=== PATIENT | male | born 1955 | race Caucasian/White ===

== ENCOUNTER → 2016-09-07 | Outpatient (CLI) | payer OTHER, BC ==
[~2016-09-07] MED LIST: AMIO200T4 PO; ASPI-435 PO; ASPI81TA82 PO; ATOR-24 PO; ATV/1 PO; CARV12.52 PO; CHOL2000 PO; CMD/25 PO; COEN100C11 PO; CPR500 PO; DAPT500I IV; DOXY100C2 PO; DOXY1TAB6 PO; FINA5TAB PO; FURO-85 PO; KFL500HP PO; LEUP11.23 INJ; METF500T5 PO; MRLP17X PO; NITR0.4S UT; ONDA4TAB46 PO; ONDA4TAB7 SL; PYRI100T4 PO; REPA1TAB26 PO; ROPI0.25 PO; SACU1TAB PO; SENN-65 PO; SILV1PAD38 TOP; TAPE50TA PO; TICA1TAB PO; TRL150 PO; TYLOTC500 PO; WARF1TAB PO; WARF3TAB PO
[2016-09-07 13:42] LABS: ALT/SGPT 30 U/L (12-78)
[2016-09-07 13:51] LABS: RATIO 29.4 mcg/mg (0-30.0)
[2016-09-07 13:52] LABS: ESTIMATED AVERAGE GLUCOSE 137 mg/dl; HA1C FLAG Normal (Normal)
--- NOTE | 2016-09-11 10:12 | CODING QUERY MEDICAL NECESSITY ---
SUPPORTING DIAGNOSIS NEEDED A supporting diagnosis is required for the test/procedure performed on this patient in order for us to be reimbursed by the patient's insurance. Please provide a supporting diagnosis for the following test/procedure listed below next to the test name along with your signature. *If there is no additional diagnosis for this patient that would support the following test/procedure please document that below next to the test/procedure. Test(s)/Procedure(s) that require a supporting diagnosis: DOS 09/07 * PSA DIAGNOSIS: Provider Signature: Date: Thank you Stephanie Jama Health Information Management Once completed, please kindly fax back to [phone] For questions please call [phone]
== END | disposition home or self-care (01) ==
LOC: C.LABMFLN 08:50
PROVIDERS: ATTEND Urology
DX: R39.9 Unspecified symptoms and signs involving the genitourinary system (principal); I10 Essential (primary) hypertension; R73.01 Impaired fasting glucose; M86.9 Osteomyelitis, unspecified; R97.20 Elevated prostate specific antigen [PSA]

== ENCOUNTER → 2016-09-26 | Outpatient (CLI) | payer OTHER, BC ==
[~2016-09-26] MED LIST changes: -REPA1TAB26 PO; +REPA1TAB42 PO
[2016-09-26 14:46] LABS: BASO % 0.4 %; BASO ABS # 0.03 K/uL (0-0.2); COMPLETE YES; EOS % 1.1 %; IG% 0.3 %; LYMPH % 30.3 %; LYMPH ABS # 2.21 K/uL (1.2-3.4); MEAN CELL VOLUME 85.5 fL (80-100); MEAN CORPUSCULAR HEMOGLOBIN 29.9 pg (25-34); MEAN PLATELET VOLUME 10.7 fL (7.4-10.4); MONO % 8.6 %; NEUT % 59.3 %; PLATELET COUNT 186 K/uL (130-400); RED BLOOD COUNT 4.91 M/uL (4.7-6.1); WHITE BLOOD COUNT 7.29 K/uL (4.8-10.8)
[2016-09-26 15:05] LABS: BLOOD UREA NITROGEN 23 mg/dl (7-18); BUN/CREATININE RATIO 16.6 (10-20); C-REACTIVE PROTEIN < 0.29 mg/dl (0-0.29); CARBON DIOXIDE 23 mmol/L (21-32); CHLORIDE 106 mmol/L (98-107); GLUCOSE 86 mg/dl (70-99); PHOSPHORUS 3.4 mg/dl (2.5-4.9); POTASSIUM 4.3 mmol/L (3.5-5.1); SODIUM 139 mmol/L (136-145)
== END | disposition home or self-care (01) ==
LOC: C.LAB1850 13:28
PROVIDERS: ATTEND Internal Medicine Infectious Disease
DX: M86.9 Osteomyelitis, unspecified (principal)

== ENCOUNTER → 2016-09-29 | Outpatient (CLI) | payer OTHER, BC ==
--- NOTE | 2016-09-29 12:01 | DIAGNOSTIC IMAGING REPORT ---
CERVICAL SPINE 2 OR 3 VIEWS CLINICAL HISTORY: Neck pain. Elevated PSA. COMPARISON STUDY: No previous studies for comparison. FINDINGS: Neck calcifications, likely representing atherosclerotic carotid calcification. There are moderate multilevel degenerative changes. There is 3 mm of anterior subluxation of C5 on C6, likely degenerative. There is straightening of normal cervical lordosis. No acute fractures are visualized. No destructive lesions are visualized on conventional radiographic imaging. IMPRESSION: Straightening of normal cervical lordosis. Moderate degenerative change. No acute fractures. Electronically signed by: Chi Schultz M.D. 09/29/2016 12:00 PM Dictated Date/Time: 09/29/2016 11:59 AM
--- NOTE | 2016-09-29 12:03 | DIAGNOSTIC IMAGING REPORT ---
THORACIC SPINE 3 VIEWS ROUTINE CLINICAL HISTORY: Upper back pain. Elevated PSA. COMPARISON STUDY: Bone scan September 02, [address] August 08, 2014. FINDINGS: Left subclavian pacer/AICD, median sternotomy wires, mediastinal surgical clips and elevation of the left hemidiaphragm are incidentally noted. Alignment of the thoracic spine is anatomic. No acute fracture is present. Mild multilevel degenerative disc disease is present. No suspicious osseous lesions are identified by radiography. IMPRESSION: 1. No acute thoracic spine fracture or subluxation. 2. Mild multilevel degenerative disc disease of the thoracic spine. Electronically signed by: Checo Orta M.D. 09/29/2016 12:02 PM Dictated Date/Time: 09/29/2016 12:00 PM
--- NOTE | 2016-09-29 12:21 | DIAGNOSTIC IMAGING REPORT ---
L-SPINE MIN 4 VIEWS ROUTINE CLINICAL HISTORY: Lower back pain. Elevated PSA. COMPARISON: Lumbar spine CT and lumbar spine radiograph March 03, 2013. FINDINGS: Minimal rightward curvature of the lumbar spine is unchanged. No fracture or suspicious lesion is present. Mild multilevel degenerative disc disease is present with moderate multilevel facet arthrosis. Pacer lead is partially imaged. IMPRESSION: 1. No acute lumbar spine fracture. 2. Mild multilevel degenerative disc disease and moderate multilevel facet arthrosis of the lumbar spine. Electronically signed by: Checo Orta M.D. 09/29/2016 12:20 PM Dictated Date/Time: 09/29/2016 12:18 PM
== END | disposition home or self-care (01) ==
LOC: C.RAD 11:09
PROVIDERS: ATTEND Family Medicine
DX: M54.2 Cervicalgia (principal); R97.20 Elevated prostate specific antigen [PSA]; M54.5 Low back pain

== ENCOUNTER → 2016-10-19 | Outpatient (CLI) | payer OTHER, BC | END | disposition home or self-care (01) | LOC: C.PATHSPEC 17:59 | PROVIDERS: ATTEND Urology | DX: R97.20 Elevated prostate specific antigen [PSA] (principal); N40.0 Benign prostatic hyperplasia without lower urinary tract symptoms ==

== ENCOUNTER → 2016-10-26 | Outpatient (CLI) | payer OTHER, BC ==
[2016-10-26 18:16] LABS: BLOOD UREA NITROGEN 21 mg/dl (7-18)
== END | disposition home or self-care (01) ==
LOC: C.LABMFLN 11:48
PROVIDERS: ATTEND Urology
DX: C61 Malignant neoplasm of prostate (principal)

== ENCOUNTER → 2016-10-30 | Outpatient (CLI) | payer OTHER, BC ==
[2016-10-30 13:52] LABS: ESTIMATED AVERAGE GLUCOSE 148 mg/dl; HA1C FLAG Normal (Normal)
[2016-10-30 18:35] LABS: URINE APPEARANCE CLEAR (CLEAR); URINE BILIRUBIN NEG (NEG); URINE COLOR DK YELLOW; URINE EPITHELIAL CELL AUTO 0-5 /lpf (0-5); URINE NITRITE NEG (NEG); URINE SPECIFIC GRAVITY 1.019 (1.000-1.030); UROBILINOGEN NEG (NEG)
[2016-10-30 18:44] LABS: MANUAL MICROSCOPIC REQUIRED? NO; REVIEW REQ? NO
--- NOTE | 2016-11-09 07:11 | CODING QUERY MEDICAL NECESSITY ---
SUPPORTING DIAGNOSIS NEEDED A supporting diagnosis is required for the test/procedure performed on this patient in order for us to be reimbursed by the patient's insurance. Please provide a supporting diagnosis for the following test/procedure listed below next to the test name along with your signature. *If there is no additional diagnosis for this patient that would support the following test/procedure please document that below next to the test/procedure. Test(s)/Procedure(s) that require a supporting diagnosis: * GLYCATED HEMOGLOBIN DIAGNOSIS: * VITAMIN B-12 LEVEL DIAGNOSIS: * DOS: 10/30/16 Provider Signature: Date: Thank you Becky Ortiz Health Information Management Once completed, please kindly fax back to [phone] For questions please call [phone]
== END | disposition home or self-care (01) ==
LOC: C.LABMFLN 08:17
PROVIDERS: ATTEND Family Medicine
DX: G62.9 Polyneuropathy, unspecified (principal); L73.9 Follicular disorder, unspecified; E11.9 Type 2 diabetes mellitus without complications; E53.8 Deficiency of other specified B group vitamins

== ENCOUNTER → 2016-10-31 | Outpatient (CLI) | payer OTHER, BC ==
[~2016-10-31] MED LIST changes: +OPTIRAY 320 IV PRN
--- NOTE | 2016-10-31 14:09 | DIAGNOSTIC IMAGING REPORT ---
BONE SCAN WHOLE BODY CLINICAL HISTORY: Prostate cancer. COMPARISON STUDY: Bone scan September 02, 2014. TECHNIQUE: 27.9 mCi of technetium 99m MDP was injected IV at 10:30 AM on October 31, 2016. 3 hours following injection, whole body imaging was performed in the anterior and posterior projections. FINDINGS: Expected soft tissue and renal uptake is present. Uptake within the shoulders, sternoclavicular joints, right ankle and right foot is likely degenerative. There are no areas of suspicious radiotracer uptake to suggest metastatic disease. An odontogenic uptake is noted. This is similar to prior exam. IMPRESSION: No scintigraphic evidence of skeletal metastatic disease. Electronically signed by: Checo Orta M.D. 10/31/2016 2:08 PM Dictated Date/Time: 10/31/2016 2:02 PM
--- NOTE | 2016-10-31 14:16 | DIAGNOSTIC IMAGING REPORT ---
CT OF THE ABDOMEN AND PELVIS WITH CONTRAST CLINICAL HISTORY: Prostate cancer. COMPARISON STUDY: CT of the pelvis March 03, 2013 and right upper quadrant ultrasound September 02, 2014. TECHNIQUE: Following IV administration of 119 mL of Optiray-320, axial images of the abdomen and pelvis were obtained from the lung bases to the proximal femurs. Images were reviewed in the axial, sagittal, and coronal planes. IV contrast was administered without complication. CT DOSE: 961.20 mGycm FINDINGS: Elevation of the left hemidiaphragm is unchanged. Pacer leads are partially imaged. There is moderate cardiomegaly. The liver and pancreas are unremarkable. There is no biliary or pancreatic ductal dilatation. There are multiple small gallstones within the gallbladder. Calcifications within each renal sinus likely reflect vascular calcifications. There is no hydronephrosis. There is a cyst within the midpole of the left kidney. There is scarring within the kidney. A few subcentimeter renal lesions are too small to characterize. There is no hydronephrosis. There is scarring within the inferior aspect of the spleen. No enlarged abdominal or pelvic lesions are present. Extensive atherosclerotic calcification of the abdominal aorta and the major branch vessels. There is no aneurysm of the abdominal aorta. There is no evidence for a bowel obstruction. No suspicious osseous lesions are identified. The appendix is normal. IMPRESSION: 1. No evidence of metastatic disease within the abdomen or pelvis. 2. Cholelithiasis. 3. Moderate cardiomegaly. 4. Stable elevation of the left hemidiaphragm. Electronically signed by: Checo Orta M.D. 10/31/2016 2:15 PM Dictated Date/Time: 10/31/2016 11:10 AM
== END | disposition home or self-care (01) ==
LOC: C.NUCL 10:07
PROVIDERS: ATTEND Urology
DX: C61 Malignant neoplasm of prostate (principal)

== ENCOUNTER 2016-11-06 00:55 | Emergency (ER) | payer OTHER, BC ==
[~2016-11-06] VITALS: Ht 182.9 cm; Wt 96.4 kg
[~2016-11-06 00:55] MED LIST changes: -ASPI-435 PO; -CMD/25 PO; -CPR500 PO; -DOXY100C2 PO; -DOXY1TAB6 PO; -FURO-85 PO; -KFL500HP PO; -LEUP11.23 INJ; -METF500T5 PO; -MRLP17X PO; -NITR0.4S UT; -ONDA4TAB46 PO; -OPTIRAY 320 IV PRN; -ROPI0.25 PO; -SACU1TAB PO; -SENN-65 PO; -TRL150 PO; -WARF1TAB PO; -WARF3TAB PO
[2016-11-06 01:01] VITALS: TEMP 36.8; Ht 182.9 cm; Wt 96.4 kg
[2016-11-06 02:14] VITALS: O2SAT 94
[2016-11-06 02:30] LABS: BASO % 0.4 %; BASO ABS # 0.03 K/uL (0-0.2); COMPLETE YES; EOS % 0.4 %; IG% 0.4 %; LYMPH % 17.1 %; LYMPH ABS # 1.42 K/uL (1.2-3.4); MEAN CELL VOLUME 85.3 fL (80-100); MEAN CORPUSCULAR HEMOGLOBIN 30.6 pg (25-34); MEAN CORPUSCULAR HGB CONC 35.8 g/dl (32-36); MEAN PLATELET VOLUME 10.8 fL (7.4-10.4); NEUT % 71.7 %; PLATELET COUNT 192 K/uL (130-400); RED BLOOD COUNT 5.04 M/uL (4.7-6.1); WHITE BLOOD COUNT 8.28 K/uL (4.8-10.8)
[2016-11-06] MEDS ORDERED: ASPI-435 PO (02:36)
[2016-11-06 02:37] LABS: INR 1.1 (0.9-1.1)
[2016-11-06 02:41] LABS: ALT/SGPT 26 U/L (12-78); AST/SGOT 18 U/L (15-37); BLOOD UREA NITROGEN 26 mg/dl (7-18); BUN/CREATININE RATIO 16.3 (10-20); CALCIUM 8.9 mg/dl (8.5-10.1); CARBON DIOXIDE 22 mmol/L (21-32); CHLORIDE 105 mmol/L (98-107); GLUCOSE 171 mg/dl (70-99); MAGNESIUM 2.3 mg/dl (1.8-2.4); POTASSIUM 4.2 mmol/L (3.5-5.1); SODIUM 138 mmol/L (136-145)
[2016-11-06] MEDS ORDERED: DOXY1TAB6 PO (02:42)
[2016-11-06] MEDS ORDERED: ONDA4TAB46 PO (02:42)
[2016-11-06] MEDS ORDERED: TYLOTC500 PO (02:42)
[2016-11-06 02:44] LABS: ALB/GLOB RATIO 1.1 (0.9-2); ALKALINE PHOSPHATASE 72 U/L (45-117); C-REACTIVE PROTEIN < 0.29 mg/dl (0-0.29); CKMB/CK RATIO 1.8 (0-3.0)
[2016-11-06 03:04] LABS: URINE APPEARANCE CLEAR (CLEAR); URINE BILIRUBIN NEG (NEG); URINE COLOR YELLOW; URINE EPITHELIAL CELL AUTO 0-5 /lpf (0-5); URINE NITRITE NEG (NEG); URINE SPECIFIC GRAVITY 1.006 (1.000-1.030); UROBILINOGEN NEG (NEG); ZZUR CULT IF INDIC CLEAN CATCH NO
[2016-11-06 03:14] LABS: MANUAL MICROSCOPIC REQUIRED? NO; REVIEW REQ? NO
--- NOTE | 2016-11-06 04:34 | EMERGENCY ROOM VISIT NOTE ---
History First contact with patient: 01:12 Chief Complaint: ILLNESS Stated Complaint: NOT FEELING WELL,DIABETIC 225,RT FOOT/TOE, History of Present Illness The patient is a 61 year old male who presents to the Emergency Department by private vehicle for evaluation of generally not feeling well. He reports that he typically does not feel well in general. His concern was that at approximately 8 PM he developed a cold sensation and felt achy cannot get warm despite sitting in a room that was 72. He checked his blood glucose which was found to be elevated at greater than 220. He typically falls in the range of 110-140. He reports that he was question if this could be making her feel poorly. He did not take his temperature, however he did not feel fevers. The patient also complains of an early ulcer to the RIGHT foot. 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 He denies any worsening redness or irritation to the area. There is been no discharge or drainage. He denies any redness up the leg. The patient also reports having a prostate biopsy performed 2 weeks ago. On Sunday, he noticed persistent mild scant blood with bowel movements. He reports that this is unchanged over the last 2 weeks, however. The patient denies any pain rating his discomfort a 0/10. He does report significant past history of coronary artery disease with CABG performed several years ago. He denies any headaches, dizziness, light headedness, chest pain, palpitations, short of breath, nausea, vomiting, or abdominal pain. Review of Systems A complete 10-point Review of Systems was discussed with the patient, with pertinent positives and negatives listed in the History of Present Illness. All remaining Review of Systems questions can be considered negative unless otherwise specified. Past Medical/Surgical History Medical Problems: (1) Acute lymphangitis of right lower extremity (2) Benign hypertension (3) CAD (coronary artery disease) (4) Cardiomyopathy (5) Cardiovascular stress testing (6) Cellulitis of second toe, right (7) Diabetes mellitus type 2 (8) Diabetic infection of right foot (9) Diabetic neuropathy (10) Diabetic retinopathy (11) Hyperlipidemia (12) Myocardial infarction (13) Toe osteomyelitis, right Surgical Problems: (1) Hx of CABG Family History FH: cancer FH: diabetes mellitus FH: heart disease FH: kidney disease Hypertension Social History Smoking Status: Never Smoker Alcohol Use: none Drug Use: none Marital Status: Housing Status: lives with family Occupation Status: disabled Current/Historical Medications Scheduled Amiodarone Hcl (Cordarone), 200 MG PO DAILY Aspirin (Aspirin 81), 81 MG PO DAILY Atorvastatin (Lipitor), 1 TAB PO HS Carvedilol (Coreg), 12.5 MG PO BID Cholecalciferol (Vitamin D3), 2,000 UNIT PO DAILY Coenzyme Q10 (Ubidecarenone) (Coq-10), 100 MG PO BID Doxycycline Hyclate (Doxycycline Hyclate), 1 TAB PO DAILY Finasteride (Proscar), 5 MG PO DAILY Furosemide (Lasix), 20 MG PO DAILY Lorazepam (Ativan), 1 MG PO TID Pyridoxine (Vitamin B6), 100 MG PO DAILY Repaglinide (Prandin), 1 MG PO TID Ropinirole (Requip), 0.5 MG PO HS Sacubitril-Valsartan (Entresto 24-26 mg), 1 TAB PO DAILY Ticagrelor (Brilinta), 90 MG PO BID Scheduled PRN Acetaminophen (Tylenol), 1,000 MG PO Q6 PRN for Pain Nitroglycerin (Nitrostat), 0.4 MG UT UD PRN for Chest Pain Ondansetron Hcl (Zofran), 4 MG PO Q6 PRN for Nausea Allergies Coded Allergies: Penicillins (Verified Allergy, Intermediate, RASH, 11/06/16) Pregabalin (Verified Allergy, Unknown, facial swelling, 11/06/16) Sitagliptin (Verified Allergy, Unknown, ., 11/06/16) Citalopram (Verified Adverse Reaction, Unknown, dizziness, 11/06/16) Gabapentin (Verified Adverse Reaction, Unknown, dizziness, 11/06/16) Sertraline (Verified Adverse Reaction, Unknown, dizziness, 11/06/16) Physical Exam Vital Signs Date Time Temp Pulse Resp B/P Pulse Ox O2 Delivery O2 Flow Rate FiO2 11/06/16 04:38 66 12 169/92 96 Room Air 11/06/16 04:07 66 20 159/88 96 Room Air 11/06/16 03:00 63 16 147/84 95 Room Air 11/06/16 02:23 62 11/06/16 02:20 62 18 118/77 95 Room Air 11/06/16 02:14 94 Room Air 11/06/16 01:01 36.8 66 16 138/77 100 Room Air Pain Rating (0-10): 0 Physical Exam VITAL SIGNS - Vital signs and nursing notes were reviewed. GENERAL - 61-year-old male appearing his stated age who is in no acute distress. Communicates well with provider and answers questions appropriately. SKIN - small subcentimeter ulceration noted to the RIGHT fifth toe. No erythema or warmth to touch. No fluctuance to palpation. No lymphangitic streaking. HEAD - NC/AT. EYES - PERRL with EOMI bilaterally. Sclera anicteric. Palpebral conjunctiva pink and moist with no injection noted. EARS - No deformities of external structures noted on gross examination bilaterally. No pain elicited with palpation of the tragus bilaterally. External auditory canals without discharge or otorrhea. Tympanic membranes pearly abdullahi without retraction or bulging. No fluid or purulent material visualized behind the TM. Handle of malleus, umbo, cone of light, pars tensa/ flaccid all easily visualized. NOSE - Midline and without cyanosis. No epistaxis or purulent drainage noted. Septum midline without deviation or septal hematoma noted. MOUTH/OROPHARYNX - Without perioral cyanosis. Buccal mucosa pink and moist and without leukoplakia. Tongue midline with equal elevation of palate bilaterally. No tonsillar hypertrophy, erythema, or exudates noted. NECK - Neck with FROM. Supple to palpation. No lymphadenopathy noted. No nuchal rigidity. LUNGS - Chest wall symmetric without accessory muscle use, intercostals retractions, or central cyanosis. Normal vesicular breath sounds CTA B/L. No wheezes, rales, or rhonchi appreciated. CARDIAC - RRR with S1/S2. No murmur, rubs, or gallops appreciated. ABDOMEN - Abdominal contour flat without pulsations or visible masses. BS normoactive all four quadrants. No tenderness, palpable masses, hepatosplenomegaly, or ascites noted. EXTREMITIES - No clubbing or peripheral cyanosis. No pretibial edema present. +3 /5 radial and dorsalis pedis pulses palpated throughout. +5/5 strength noted in UE/LE bilaterally. NEUROLOGIC - Cranial nerves II through XII grossly intact. Sensory intact to light touch throughout. PSYCH - A&Ox3 and cooperates fully with examiner. Pt is very pleasant and interacts well with examiner. Medical Decision & Procedures ER Provider Diagnostic Interpretation: X-ray the chest was obtained and reviewed by myself. No changes from priors. No acute consolidations or congestive changes noted. Radiologist's impression unavailable at time of dictation. Laboratory Results 11/06/16 02:00 Red Blood Count 5.04, Mean Corpuscular Volume 85.3, Mean Corpuscular Hemoglobin 30.6, Mean Corpuscular Hemoglobin Concent 35.8, Mean Platelet Volume 10.8, Neutrophils (%) (Auto) 71.7, Lymphocytes (%) (Auto) 17.1, Monocytes (%) (Auto) 10.0, Eosinophils (%) (Auto) 0.4, Basophils (%) (Auto) 0.4, Neutrophils # (Auto ) 5.94, Lymphocytes # (Auto) 1.42, Monocytes # (Auto) 0.83, Eosinophils # (Auto ) 0.03, Basophils # (Auto) 0.03 11/06/16 02:00 Test 11/06/16 01:22 11/06/16 02:00 11/06/16 02:07 11/06/16 02:20 Bedside Glucose 179 mg/dl (70-99) White Blood Count 8.28 K/uL (4.8-10.8) Red Blood Count 5.04 M/uL (4.7-6.1) Hemoglobin 15.4 g/dL (14.0-18.0) Hematocrit 43.0 % (42-52) Mean Corpuscular Volume 85.3 fL (80-100) Mean Corpuscular Hemoglobin 30.6 pg (25-34) Mean Corpuscular Hemoglobin Concent 35.8 g/dl (32-36) Platelet Count 192 K/uL (130-400) Mean Platelet Volume 10.8 fL (7.4-10.4) Neutrophils (%) (Auto) 71.7 % Lymphocytes (%) (Auto) 17.1 % Monocytes (%) (Auto) 10.0 % Eosinophils (%) (Auto) 0.4 % Basophils (%) (Auto) 0.4 % Neutrophils # (Auto) 5.94 K/uL (1.4-6.5) Lymphocytes # (Auto) 1.42 K/uL (1.2-3.4) Monocytes # (Auto) 0.83 K/uL (0.11-0.59) Eosinophils # (Auto) 0.03 K/uL (0-0.5) Basophils # (Auto) 0.03 K/uL (0-0.2) RDW Standard Deviation 42.4 fL (36.4-46.3) RDW Coefficient of Variation 13.5 % (11.5-14.5) Immature Granulocyte % (Auto) 0.4 % Immature Granulocyte # (Auto) 0.03 K/uL (0.00-0.02) Erythrocyte Sedimentation Rate 19 mm/hr (0-14) Prothrombin Time 12.0 SECONDS (9.0-12.0) Prothromb Time International Ratio 1.1 (0.9-1.1) Activated Partial Thromboplast Time 26.4 SECONDS (21.0-31.0) Partial Thromboplastin Ratio 1.0 Anion Gap 11.0 mmol/L (3-11) Est Creatinine Clear Calc Drug Dose 57.6 ml/min Estimated GFR () 52.7 Estimated GFR (Non- 45.5 BUN/Creatinine Ratio 16.3 (10-20) Calcium Level 8.9 mg/dl (8.5-10.1) Magnesium Level 2.3 mg/dl (1.8-2.4) Total Bilirubin 0.9 mg/dl (0.2-1) Aspartate Amino Transf (AST/SGOT) 18 U/L (15-37) Alanine Aminotransferase (ALT/SGPT) 26 U/L (12-78) Alkaline Phosphatase 72 U/L (45-117) Total Creatine Kinase 125 U/L (39-308) Creatine Kinase MB 2.3 ng/ml (0.5-3.6) Creatine Kinase MB Ratio 1.8 (0-3.0) Troponin I < 0.015 ng/ml (0-0.045) C-Reactive Protein < 0.29 mg/dl (0-0.29) Total Protein 7.9 gm/dl (6.4-8.2) Albumin 4.1 gm/dl (3.4-5.0) Globulin 3.8 gm/dl (2.5-4.0) Albumin/Globulin Ratio 1.1 (0.9-2) Lipase 192 U/L (73-393) Bedside Troponin I 0.000 ng/ml (0-0.045) Influenza Type A Antigen Neg for Influ A (NEG) Influenza Type B Antigen Neg for Influ B (NEG) Test 11/06/16 02:55 Urine Color YELLOW Urine Appearance CLEAR (CLEAR) Urine pH 6.0 (4.5-7.5) Urine Specific [place] 1.006 (1.000-1.030) Urine Protein NEG (NEG) Urine Glucose (UA) TRACE (NEG) Urine Ketones NEG (NEG) Urine Occult Blood 2+ (NEG) Urine Nitrite NEG (NEG) Urine Bilirubin NEG (NEG) Urine Urobilinogen NEG (NEG) Urine Leukocyte Esterase NEG (NEG) Urine WBC (Auto) 0 /hpf (0-5) Urine RBC (Auto) 0-4 /hpf (0-4) Urine Hyaline Casts (Auto) 0 /lpf (0-5) Urine Epithelial Cells (Auto) 0-5 /lpf (0-5) Urine Bacteria (Auto) NEG (NEG) Procedure Patient was placed on the monitoring and evaluation advisor and monitored throughout the entire extent of their stay. In addition, the patient's pulse oximetry was monitored throughout the entire stay. Any abnormalities or aberrancies were addressed appropriately. ECG Indication: weakness Rate (beats per minute): 62 Rhythm: sinus rhythm Findings: 1st degree AV block, no acute ischemic change, no ectopy Change: no significant change (from 06/04/2016.) ED Course Patient was seen and evaluated by myself. Previous emergency department visit notes were reviewed. Labs were drawn, saline lock in place. Patient declines anything for pain. Chest x-ray and EKG were obtained. Laboratory results demonstrate no acute leukocytosis, worrisome anemia, or bandemia. The patient has no significant electrolyte abnormalities. CRP is not elevated. Cardiac enzymes and troponin are not elevated. Creatinine is mildly elevated at 1.6. Glucose was found be 171. Urinalysis was unremarkable. Influenza was negative. Case was discussed with my attending physician who agrees with diagnostic approach treatment plan. Laboratory results and imaging studies were reviewed with the patient who acknowledges understanding. The patient was educated on following up with his primary care provider from today's visit. He was educated on worrisome symptoms for return visit to the emergency department. Patient discharged home afebrile and in good condition. Medical Decision Given the patient's presentation and stated complaints, I did elect to perform the above-mentioned workup. The patient presents today complaining of generalized malaise. He has multiple complaints. His exam is otherwise unremarkable. He has no focal neurological deficits. Chest x-ray, EKG, and cardiac enzymes are otherwise unremarkable. He has no fever leukocytosis. CRP is not elevated to suggest acute infection. His blood glucose is not significantly elevated as well. Influenza is not positive. His creatinine was mildly elevated at baseline, however he reports that they do monitor this closely. The patient was encouraged to follow-up with his primary care provider for ongoing symptoms. He was educated on worrisome symptoms for return visit to the emergency department. Patient discharged home afebrile and in good condition. In the evaluation and treatment of this patient, the following differential diagnoses were considered: Sepsis, cellulitis, influenza, [place], ASC, Dysrhythmia, Angina, Mediastinitis, GERD, Esophagitis, PE, Pneumonia, Bronchitis, Costochondritis, Rib Fracture, Zoster. Impression Primary Impression: Weakness Departure Information Dispostion Home / Self-Care Condition GOOD Referrals Dixon Junior M.D. (PCP) Patient Instructions My [facility] Additional Instructions You have been seen in the emergency department today for your weakness. Follow-up with your primary care provider as discussed. Return for any changing or worsening symptoms.
[2016-11-06 04:38] VITALS: BP 169/92; PULSE 66; O2SAT 96
--- NOTE | 2016-11-06 07:30 | DIAGNOSTIC IMAGING REPORT ---
CHEST ONE VIEW PORTABLE HISTORY: weakness COMPARISON: Chest 06/07/2016. FINDINGS: Chronic elevation of the left hemidiaphragm. The heart remains mildly enlarged. There are postoperative changes and left-sided dual-chamber pacemaker. No new focal lung consolidations. No new pneumothorax. No evidence for pulmonary edema. IMPRESSION: No significant change compared to the prior study. No acute process. Electronically signed by: Ulises Lucero M.D. 11/06/2016 7:29 AM Dictated Date/Time: 11/06/2016 7:28 AM
--- NOTE | 2016-11-06 07:53 | EMERGENCY ROOM VISIT NOTE ---
ED Visit Note First contact with patient: 01:12 I have personally evaluated and examined this patient. I agree with assessment and plan of Stanford Bauer PA-C.
[2017-02-20] MEDS ORDERED: SACU1TAB PO (08:30)
[2017-02-20] MEDS ORDERED: FURO-85 PO (09:33)
[2017-02-20] MEDS ORDERED: SENN-65 PO (09:51)
[2017-02-20] MEDS ORDERED: NITR0.4S UT (12:29)
[2017-04-09] MEDS ORDERED: WARF1TAB PO (14:15)
[2017-04-09] MEDS ORDERED: ATOR-24 PO (14:18)
[2017-05-25] MEDS ORDERED: CARV12.52 PO (11:18)
[2017-05-25] MEDS ORDERED: TRL150 PO (11:18)
[2017-05-25] MEDS ORDERED: FURO-85 PO (11:18)
[2017-05-25] MEDS ORDERED: SACU1TAB PO (11:18)
== END 2016-11-06 04:46 | disposition home or self-care (01) ==
LOC: C.EDB 00:57 → C.EDA 04:46
DX: R53.1 Weakness (principal); I10 Essential (primary) hypertension; E11.9 Type 2 diabetes mellitus without complications; I25.10 Atherosclerotic heart disease of native coronary artery without angina pectoris; Z79.82 Long term (current) use of aspirin; Z79.899 Other long term (current) drug therapy

== ENCOUNTER → 2017-01-04 | Outpatient (CLI) | payer OTHER, BC ==
[~2017-01-04] MED LIST changes: +ASPI-435 PO; -ASPI81TA82 PO; +CMD/25 PO; +CPR500 PO; -DAPT500I IV; +DOXY100C2 PO; -FINA5TAB PO; +FURO-85 PO; +KFL500HP PO; +LEUP11.23 INJ; +METF500T5 PO; +MRLP17X PO; +NITR0.4S UT; +ONDA4TAB46 PO; -ONDA4TAB7 SL; +REPA1TAB26 PO; -REPA1TAB42 PO; +ROPI0.25 PO; +SACU1TAB PO; +SENN-65 PO; -SILV1PAD38 TOP; -TAPE50TA PO; -TICA1TAB PO; +TRL150 PO; +WARF1TAB PO; +WARF3TAB PO
[2017-01-04 13:20] LABS: BASO % 0.5 %; BASO ABS # 0.04 K/uL (0-0.2); COMPLETE YES; IG% 0.3 %; LYMPH % 29.5 %; LYMPH ABS # 2.17 K/uL (1.2-3.4); MEAN CELL VOLUME 86.5 fL (80-100); MEAN CORPUSCULAR HEMOGLOBIN 28.5 pg (25-34); MEAN CORPUSCULAR HGB CONC 32.9 g/dl (32-36); MONO % 8.2 %; NEUT % 60.5 %; PLATELET COUNT 188 K/uL (130-400); WHITE BLOOD COUNT 7.35 K/uL (4.8-10.8)
[2017-01-04 13:49] LABS: BLOOD UREA NITROGEN 22 mg/dl (7-18); BUN/CREATININE RATIO 14.7 (10-20); CALCIUM 9.4 mg/dl (8.5-10.1); CARBON DIOXIDE 27 mmol/L (21-32); CHLORIDE 107 mmol/L (98-107); GLUCOSE 107 mg/dl (70-99); POTASSIUM 4.2 mmol/L (3.5-5.1); SODIUM 140 mmol/L (136-145)
[2017-01-04 13:50] LABS: C-REACTIVE PROTEIN < 0.29 mg/dl (0-0.29); PHOSPHORUS 3.8 mg/dl (2.5-4.9)
== END | disposition home or self-care (01) ==
LOC: C.LABMFLN 10:40
PROVIDERS: ATTEND Physician Assistant
DX: M86.9 Osteomyelitis, unspecified (principal)

== ENCOUNTER 2017-02-20 19:14 | Emergency (ER) | payer OTHER, BC ==
[~2017-02-20] VITALS: Ht 182.9 cm; Wt 86.1 kg
[~2017-02-20 19:14] MED LIST changes: -CMD/25 PO; -CPR500 PO; -DOXY100C2 PO; -KFL500HP PO; -LEUP11.23 INJ; -METF500T5 PO; -MRLP17X PO; -ROPI0.25 PO; -TRL150 PO; -WARF1TAB PO; -WARF3TAB PO
[2017-02-20 19:18] VITALS: TEMP 36.8; Ht 182.9 cm; Wt 86.1 kg
[2017-02-20] MEDS ORDERED: DOXY100C2 PO (20:49)
[2017-02-20] MEDS ORDERED: KFL500HP PO (20:49)
[2017-02-20] MEDS ORDERED: METF500T5 PO (20:49)
[2017-02-20] MEDS ORDERED: LEUP11.23 INJ (20:49)
[2017-02-20] MEDS ORDERED: SODIUM CHLORIDE 0.9% 1000ML 1,000 ML IV STA (21:03)
[2017-02-20 21:22] LABS: URINE APPEARANCE CLEAR (CLEAR); URINE BILIRUBIN NEG (NEG); URINE COLOR YELLOW; URINE EPITHELIAL CELL AUTO 0-5 /lpf (0-5); URINE NITRITE NEG (NEG); URINE SPECIFIC GRAVITY 1.017 (1.000-1.030); UROBILINOGEN NEG (NEG); ZZUR CULT IF INDIC CLEAN CATCH NO
[2017-02-20 21:23] LABS: MANUAL MICROSCOPIC REQUIRED? NO; REVIEW REQ? NO
--- NOTE | 2017-02-20 21:32 | DIAGNOSTIC IMAGING REPORT ---
CHEST ONE VIEW PORTABLE HISTORY: EVALUATE ALTERED MENTAL STATUS/WEAKNESS COMPARISON: Chest 11/06/2016. FINDINGS: Chronic elevation of the left hemidiaphragm, unchanged. Left basilar linear densities consistent with subsegmental atelectasis. This is also unchanged. No new focal lung consolidations to suggest pneumonia. No evidence for pulmonary edema. Left-sided pacemaker/defibrillator. The heart is stable in size. Poststernotomy changes. No pleural effusions. No pneumothorax. IMPRESSION: No significant change compared to the prior study. No acute process. Electronically signed by: Ulises Lucero M.D. 02/20/2017 9:31 PM Dictated Date/Time: 02/20/2017 9:29 PM
[2017-02-20 21:34] LABS: BASO % 0.6 %; BASO ABS # 0.05 K/uL (0-0.2); COMPLETE YES; EOS % 1.2 %; HEMATOCRIT 41.3 % (42-52); IG% 0.5 %; LYMPH % 21.3 %; LYMPH ABS # 1.71 K/uL (1.2-3.4); MEAN CELL VOLUME 85.9 fL (80-100); MEAN CORPUSCULAR HEMOGLOBIN 28.9 pg (25-34); MEAN CORPUSCULAR HGB CONC 33.7 g/dl (32-36); MEAN PLATELET VOLUME 10.4 fL (7.4-10.4); MONO % 10.5 %; NEUT % 65.9 %; PLATELET COUNT 185 K/uL (130-400); RED BLOOD COUNT 4.81 M/uL (4.7-6.1); WHITE BLOOD COUNT 8.01 K/uL (4.8-10.8)
[2017-02-20 21:44] LABS: PROTHROMBIN TIME (PATIENT) 10.9 SECONDS (9.0-12.0)
[2017-02-20 21:52] LABS: ALT/SGPT 31 U/L (12-78); BLOOD UREA NITROGEN 31 mg/dl (7-18); BUN/CREATININE RATIO 20.4 (10-20); CARBON DIOXIDE 22 mmol/L (21-32); CHLORIDE 107 mmol/L (98-107); GLUCOSE 70 mg/dl (70-99); MAGNESIUM 2.6 mg/dl (1.8-2.4); POTASSIUM 4.7 mmol/L (3.5-5.1); SODIUM 139 mmol/L (136-145)
[2017-02-20 22:02] LABS: ALKALINE PHOSPHATASE 63 U/L (45-117); AST/SGOT 23 U/L (15-37); CKMB/CK RATIO 1.9 (0-3.0)
[2017-02-20 22:23] LABS: CALCIUM 9.2 mg/dl (8.5-10.1)
[2017-02-20] MEDS ORDERED: ROPI0.25 PO (23:26)
--- NOTE | 2017-02-20 23:46 | EMERGENCY ROOM VISIT NOTE ---
History Report prepared by Troy: Heather Mena Under the Supervision of: Dr. Ronaldo Sabillon D.O. First contact with patient: 21:03 Chief Complaint: DEHYDRATION Stated Complaint: DEHYDRATED, MILD SWEATING, SLOW HEART RATE Nursing Triage Summary: Patient states, "I feel like I'm dehydrated to start. I keep breaking out in sweats. I do have an infection in my toe, but it's looking pretty good. I did break off a tooth and that seems to be sore, too. Maybe that's the problem. I guess I just want to make sure I'm not dehydrated." Denies chest pain. History of Present Illness The patient is a 61 year old male who presents to the Emergency Room with complaints of persistent low heart rate starting 3-4 days ago. He has had several health problems recently including an infection in his foot, a broken tooth, and a diagnosis of prostate cancer. He has a history of heart problems. He is concerned because the last couple of days his heart rate was 55. He reports episodes of diaphoresis, feeling warm, and feel dehydrated. He is worried that his broken tooth might be developing an infection. He did see his dentist the day after he broke his tooth who told him his tooth would not have any problems. He is on antibiotics for the foot infection. Source of History: patient Onset: 3-4 days ago Position: other (heart) Symptom Intensity: 55 Quality: other (low heartrate) Timing: other (persistent) Associated Symptoms: + diaphoresis Note: Pt reports feeling hot and dehydrated. Review of Systems See HPI for pertinent positives & negatives. A total of 10 systems reviewed and were otherwise negative. Past Medical & Surgical Medical Problems: (1) Acute lymphangitis of right lower extremity (2) Benign hypertension (3) CAD (coronary artery disease) (4) Cardiomyopathy (5) Cardiovascular stress testing (6) Cellulitis of second toe, right (7) Diabetes mellitus type 2 (8) Diabetic infection of right foot (9) Diabetic neuropathy (10) Diabetic retinopathy (11) Hyperlipidemia (12) Myocardial infarction (13) Toe osteomyelitis, right Surgical Problems: (1) Hx of CABG Family History FH: cancer FH: diabetes mellitus FH: heart disease FH: kidney disease Hypertension Social History Smoking Status: Never Smoker Alcohol Use: none Drug Use: none Marital Status: Housing Status: lives with family Occupation Status: disabled Current/Historical Medications Scheduled Amiodarone Hcl (Cordarone), 200 MG PO DAILY Aspirin (Aspirin 81), 81 MG PO DAILY Carvedilol (Coreg), 12.5 MG PO BID Cephalexin Monohydrate (Cephalexin), 1 TAB PO BID Cholecalciferol (Vitamin D3), 2,000 UNIT PO DAILY Coenzyme Q10 (Ubidecarenone) (Coq-10), 100 MG PO BID Doxycycline Hyclate (Vibramycin), 100 MG PO BID Furosemide (Lasix), 20 MG PO Q2D Leuprolide Acetate (Lupron Depot), 1 DOSE INJ UD Lorazepam (Ativan), 1 MG PO TID Metformin Hcl Er (Glucophage Er), 500 MG PO BID Pyridoxine (Vitamin B6), 100 MG PO DAILY Repaglinide (Prandin), 1 MG PO TID Ropinirole (Requip), 0.5 MG PO HS Sacubitril-Valsartan (Entresto 24-26 mg), 1 TAB PO DAILY Scheduled PRN Acetaminophen (Tylenol), 1-2 TABS PO Q6 PRN for Pain Nitroglycerin (Nitrostat), 0.4 MG UT UD PRN for Chest Pain Ondansetron Hcl (Zofran), 4 MG PO Q6 PRN for Nausea Senna/Docusate Sod (Senokot S), 1 TAB PO DAILY PRN for Constipation Allergies Coded Allergies: Penicillins (Verified Allergy, Intermediate, RASH, 01/01/17) Pregabalin (Verified Allergy, Unknown, facial swelling, 01/01/17) Sitagliptin (Verified Allergy, Unknown, ., 01/01/17) Spironolactone (Verified Allergy, Unknown, UNKNOWN, 02/20/17) Citalopram (Verified Adverse Reaction, Unknown, dizziness, 01/01/17) Gabapentin (Verified Adverse Reaction, Unknown, dizziness, 01/01/17) Sertraline (Verified Adverse Reaction, Unknown, dizziness, 01/01/17) Physical Exam Vital Signs Date Time Temp Pulse Resp B/P (MAP) Pulse Ox O2 Delivery O2 Flow Rate FiO2 02/20/17 22:14 56 18 95 02/20/17 22:00 148/79 02/20/17 21:44 56 95 02/20/17 21:26 58 02/20/17 21:25 58 20 145/85 97 Room Air 02/20/17 21:20 145/85 02/20/17 19:18 36.8 55 18 130/80 95 Room Air Physical Exam CONSTITUTIONAL/VITAL SIGNS: Reviewed / noted above. GENERAL: Non-toxic in appearance. INTEGUMENTARY: Warm, dry, and [place]. HEAD: Normocephalic. EYES: without scleral icterus or trauma. ENT/OROPHARYNX: clear and moist. There is no evidence of dental infection or abscess. LYMPHADENOPATHY/NECK: Is supple without lymphadenopathy or meningismus. RESPIRATORY: Lungs clear and equal. CARDIOVASCULAR: Regular rate and rhythm. GI/ABDOMEN: Soft and nontender. No organomegaly or pulsatile mass. No rebound or guarding. Normal bowel sounds. EXTREMITIES: Warm and well perfused. No evidence of acute infection in the toes of the right foot. BACK: No CVA tenderness. NEUROLOGICAL: Intact without focal deficits. PSYCHIATRIC: normal affect. MUSCULOSKELETAL: Normally developed with good muscle tone. Medical Decision & Procedures ER Provider Diagnostic Interpretation: X ray results and stated below per my interpretation and radiology interpretation. CHEST ONE VIEW PORTABLE HISTORY: EVALUATE ALTERED MENTAL STATUS/WEAKNESS COMPARISON: Chest 11/06/2016. FINDINGS: Chronic elevation of the left hemidiaphragm, unchanged. Left basilar linear densities consistent with subsegmental atelectasis. This is also unchanged. No new focal lung consolidations to suggest pneumonia. No evidence for pulmonary edema. Left-sided pacemaker/defibrillator. The heart is stable in size. Poststernotomy changes. No pleural effusions. No pneumothorax. IMPRESSION: No significant change compared to the prior study. No acute process. Electronically signed by: Ulises Lucero M.D. 02/20/2017 9:31 PM Dictated Date/Time: 02/20/2017 9:29 PM Laboratory Results 02/20/17 21:23 Red Blood Count 4.81, Mean Corpuscular Volume 85.9, Mean Corpuscular Hemoglobin 28.9, Mean Corpuscular Hemoglobin Concent 33.7, Mean Platelet Volume 10.4, Neutrophils (%) (Auto) 65.9, Lymphocytes (%) (Auto) 21.3, Monocytes (%) (Auto) 10.5, Eosinophils (%) (Auto) 1.2, Basophils (%) (Auto) 0.6, Neutrophils # (Auto ) 5.27, Lymphocytes # (Auto) 1.71, Monocytes # (Auto) 0.84, Eosinophils # (Auto ) 0.10, Basophils # (Auto) 0.05 02/20/17 21:23 Test 02/20/17 21:05 02/20/17 21:23 Urine Color YELLOW Urine Appearance CLEAR (CLEAR) Urine pH 5.0 (4.5-7.5) Urine Specific [place] 1.017 (1.000-1.030) Urine Protein NEG (NEG) Urine Glucose (UA) NEG (NEG) Urine Ketones NEG (NEG) Urine Occult Blood 2+ (NEG) Urine Nitrite NEG (NEG) Urine Bilirubin NEG (NEG) Urine Urobilinogen NEG (NEG) Urine Leukocyte Esterase NEG (NEG) Urine WBC (Auto) 1-5 /hpf (0-5) Urine RBC (Auto) 0-4 /hpf (0-4) Urine Hyaline Casts (Auto) 1-5 /lpf (0-5) Urine Epithelial Cells (Auto) 0-5 /lpf (0-5) Urine Bacteria (Auto) NEG (NEG) White Blood Count 8.01 K/uL (4.8-10.8) Red Blood Count 4.81 M/uL (4.7-6.1) Hemoglobin 13.9 g/dL (14.0-18.0) Hematocrit 41.3 % (42-52) Mean Corpuscular Volume 85.9 fL (80-100) Mean Corpuscular Hemoglobin 28.9 pg (25-34) Mean Corpuscular Hemoglobin Concent 33.7 g/dl (32-36) Platelet Count 185 K/uL (130-400) Mean Platelet Volume 10.4 fL (7.4-10.4) Neutrophils (%) (Auto) 65.9 % Lymphocytes (%) (Auto) 21.3 % Monocytes (%) (Auto) 10.5 % Eosinophils (%) (Auto) 1.2 % Basophils (%) (Auto) 0.6 % Neutrophils # (Auto) 5.27 K/uL (1.4-6.5) Lymphocytes # (Auto) 1.71 K/uL (1.2-3.4) Monocytes # (Auto) 0.84 K/uL (0.11-0.59) Eosinophils # (Auto) 0.10 K/uL (0-0.5) Basophils # (Auto) 0.05 K/uL (0-0.2) RDW Standard Deviation 44.3 fL (36.4-46.3) RDW Coefficient of Variation 14.2 % (11.5-14.5) Immature Granulocyte % (Auto) 0.5 % Immature Granulocyte # (Auto) 0.04 K/uL (0.00-0.02) Prothrombin Time 10.9 SECONDS (9.0-12.0) Prothromb Time International Ratio 1.0 (0.9-1.1) Activated Partial Thromboplast Time 26.1 SECONDS (21.0-31.0) Partial Thromboplastin Ratio 1.0 Anion Gap 10.0 mmol/L (3-11) Est Creatinine Clear Calc Drug Dose 56.1 ml/min Estimated GFR () 57.0 Estimated GFR (Non- 49.2 BUN/Creatinine Ratio 20.4 (10-20) Calcium Level 9.2 mg/dl (8.5-10.1) Magnesium Level 2.6 mg/dl (1.8-2.4) Total Bilirubin 0.4 mg/dl (0.2-1) Direct Bilirubin < 0.1 mg/dl (0-0.2) Aspartate Amino Transf (AST/SGOT) 23 U/L (15-37) Alanine Aminotransferase (ALT/SGPT) 31 U/L (12-78) Alkaline Phosphatase 63 U/L (45-117) Total Creatine Kinase 139 U/L (39-308) Creatine Kinase MB 2.6 ng/ml (0.5-3.6) Creatine Kinase MB Ratio 1.9 (0-3.0) Troponin I 0.016 ng/ml (0-0.045) Total Protein 7.8 gm/dl (6.4-8.2) Albumin 3.8 gm/dl (3.4-5.0) Lipase 279 U/L (73-393) Thyroid Stimulating Hormone (TSH) 2.100 uIu/ml (0.300-4.500) Laboratory results as stated above per my review. Medications Administered Medications (Trade) Dose Ordered Sig/Donato Route Start Time Stop Time Status Last Admin Dose Admin Sodium Chloride 1,000 ml @ 999 mls/hr Q1H1M STAT IV 02/20/17 21:03 02/20/17 22:03 DC 02/20/17 21:03 999 MLS/HR ECG Indication: bradycardia Rate (beats per minute): 57 Rhythm: sinus bradycardia Findings: T-wave inversion (Lateral), no ectopy, other (no acute injury) Comparison ECG Date: 01-Jan-2017 Change: no significant change ED Course 2102: NSS 1000 ml @ 999 mls/hr IV. 2143: Previous medical records were reviewed. The patient was evaluated in room A2. A complete history and physical examination was performed. 2347: On reevaluation, the patient is resting comfortably. I discussed the results and findings with the patient. He verbalized agreement of the treatment plan. He was discharged home. Medical Decision Differential includes acute coronary syndrome, myocardial infarction, CVA, TIA, anemia, infection, pneumonia, UTI, pyelonephritis, poor nutrition, dehydration, electrolyte disturbance,hypoglycemia. Medication Reconciliation: I attest that I have personally reviewed the patient' s current medication list. Patient was found to have a slightly elevated blood pressure due to circumstances. I do not believe that the patient requires hypertension monitoring. This is a 61-year-old male who presents to the ED with a chief complaint of generalized weakness, concerns about dehydration. He states that he also has a broken tooth that he saw his dentist on February 02. He also is being treated for an infection in his right toe. The patient overall just has some generalized malaise. He states that he is starting treatment for prostate cancer tomorrow. His vital signs are normal. His physical exam did not reveal any obvious abnormalities. There is no obvious dental infection or abscess. His lungs are clear. Abdomen soft and nontender. Extremities do not show any obvious infection. Chest x-ray did not show acute disease. CBC is normal. Urine showed 2+ blood. BUN is 31 and creatinine is 1.5. TSH was normal. Troponin is negative. The patient was told results the test. He is felt to be stable for discharge and outpatient follow-up. Impression Primary Impression: Weakness Additional Impression: Renal insufficiency Scribe Attestation The scribe's documentation has been prepared under my direction and personally reviewed by me in its entirety. I confirm that the note above accurately reflects all work, treatment, procedures, and medical decision making performed by me. Departure Information Dispostion Home / Self-Care Referrals Dixon Junior M.D. (PCP) Patient Instructions My [facility] Problem Qualifiers
[2017-02-21 00:03] VITALS: BP 165/76; PULSE 57; O2SAT 97
[2017-04-09] MEDS ORDERED: WARF1TAB PO (14:15)
[2017-04-09] MEDS ORDERED: ATOR-24 PO (14:18)
[2017-05-25] MEDS ORDERED: TRL150 PO (11:18)
[2017-05-25] MEDS ORDERED: SACU1TAB PO (11:18)
[2017-05-25] MEDS ORDERED: FURO-85 PO (11:18)
[2017-05-25] MEDS ORDERED: CARV12.52 PO (11:18)
== END 2017-02-21 00:04 | disposition home or self-care (01) ==
LOC: C.EDB 19:16 → C.EDA 02-21 00:04
DX: R53.1 Weakness (principal); N28.9 Disorder of kidney and ureter, unspecified; R00.1 Bradycardia, unspecified; C61 Malignant neoplasm of prostate; I10 Essential (primary) hypertension; E11.40 Type 2 diabetes mellitus with diabetic neuropathy, unspecified; E11.319 Type 2 diabetes mellitus with unspecified diabetic retinopathy without macular edema; I25.10 Atherosclerotic heart disease of native coronary artery without angina pectoris; E78.5 Hyperlipidemia, unspecified; I25.2 Old myocardial infarction; Z86.19 Personal history of other infectious and parasitic diseases; Z95.1 Presence of aortocoronary bypass graft; Z79.82 Long term (current) use of aspirin; Z79.84 Long term (current) use of oral hypoglycemic drugs; Z79.899 Other long term (current) drug therapy; Z88.0 Allergy status to penicillin; Z88.8 Allergy status to other drugs, medicaments and biological substances; Z80.9 Family history of malignant neoplasm, unspecified; Z83.3 Family history of diabetes mellitus; Z82.49 Family history of ischemic heart disease and other diseases of the circulatory system; Z84.1 Family history of disorders of kidney and ureter

== ENCOUNTER 2017-04-12 02:19 | Inpatient (IN) | payer OTHER, BC ==
[~2017-04-12] VITALS: Ht 182.9 cm; Wt 92.4 kg
[~2017-04-12 02:19] MED LIST changes: +DOXY100C2 PO; -FURO-85 PO; +LEUP11.23 INJ; +METF500T5 PO; -REPA1TAB26 PO; +REPA1TAB42 PO; +ROPI0.25 PO; +WARF1TAB PO
[2017-04-12] MEDS ORDERED: CMD/25 PO (03:09)
[2017-04-12] MEDS ORDERED: WARF3TAB PO (03:10)
[2017-04-12 03:31] LABS: BASO % 0.2 %; BASO ABS # 0.01 K/uL (0-0.2); COMPLETE YES; EOS % 2.4 %; IG% 0.4 %; LYMPH % 9.5 %; LYMPH ABS # 0.48 K/uL (1.2-3.4); MEAN CELL VOLUME 87.2 fL (80-100); MEAN CORPUSCULAR HGB CONC 34.4 g/dl (32-36); MEAN PLATELET VOLUME 10.4 fL (7.4-10.4); MONO % 10.9 %; NEUT % 76.6 %; PLATELET COUNT 137 K/uL (130-400); WHITE BLOOD COUNT 5.03 K/uL (4.8-10.8)
[2017-04-12 03:40] LABS: INR 2.6 (0.9-1.1); PARTIAL THROMBOPLASTIN RATIO 1.2; PROTHROMBIN TIME (PATIENT) 28.5 SECONDS (9.0-12.0)
[2017-04-12 04:09] LABS: BUN/CREATININE RATIO 16.2 (10-20); CALCIUM 8.9 mg/dl (8.5-10.1); CREATININE 1.3 mg/dl (0.60-1.40); POTASSIUM 4.3 mmol/L (3.5-5.1)
--- NOTE | 2017-04-12 05:56 | EMERGENCY ROOM VISIT NOTE ---
History First contact with patient: 02:29 Chief Complaint: RECTAL BLEEDING Stated Complaint: RECTAL BLEEDING Nursing Triage Summary: Pt states he was started on Coumadin 9 days ago after a blood clot was discovered during an echo. Today pt noted to have bright red stools. Pt states he currently has 2 radiation tx left for prostate CA. History of Present Illness The patient is a 61 year old male who presents to the Emergency Room with complaints of rectal bleeding and abdominal bloating and discomfort. Patient currently being treated for prostate cancer with radiation Sunday to Sunday for the past 7 weeks and has 2 more weeks. He follows with Dr. Vega. They did have an echo last month that showed a possible atrial clot and was started on Coumadin 9 days ago. INR the other day was 2.4. Sigmoidoscopy 3 years ago was negative per patient. No history GI bleeding in the past. He did require a blood transfusion in 2012 after his CABG though. Patient states he had to go to the bathroom tonight and he had a bowel movement without difficulties. He felt like he had to go again and was straining and then noticed there was bright red blood in the toilet. No blood or black in the stool. Patient does state he suffers from hemorrhoids. Patient states he feels that his stomach is bloated and has some lower abdominal discomfort. Patient also states he feels weak. He states he has been feeling weak with the radiation though. Patient denies chest pain, dyspnea, fever, chills, nausea, vomiting, diarrhea, urinary symptoms. He is tolerating by mouth fluids but has a decreased appetite. Dr. Cortes is his urologist. Review of Systems See HPI for pertinent positives & negatives. A total of 10 systems reviewed and were otherwise negative. Past Medical/Surgical History Medical Problems: (1) Acute lymphangitis of right lower extremity (2) Benign hypertension (3) CAD (coronary artery disease) (4) Cardiomyopathy (5) Cardiovascular stress testing (6) Cellulitis of second toe, right (7) Diabetes mellitus type 2 (8) Diabetic infection of right foot (9) Diabetic neuropathy (10) Diabetic retinopathy (11) Hyperlipidemia (12) Myocardial infarction (13) Toe osteomyelitis, right Surgical Problems: (1) Hx of CABG Family History FH: cancer FH: diabetes mellitus FH: heart disease FH: kidney disease Hypertension Social History Smoking Status: Never Smoker Alcohol Use: none Drug Use: none Marital Status: Housing Status: lives with family Occupation Status: disabled Current/Historical Medications Scheduled Amiodarone Hcl (Cordarone), 200 MG PO DAILY Aspirin (Aspirin 81), 81 MG PO DAILY Atorvastatin (Lipitor), 1 TAB PO DAILY Carvedilol (Coreg), 12.5 MG PO BID Cholecalciferol (Vitamin D3), 2,000 UNIT PO DAILY Coenzyme Q10 (Ubidecarenone) (Coq-10), 100 MG PO BID Doxycycline Hyclate (Vibramycin), 100 MG PO BID Leuprolide Acetate (Lupron Depot), 1 DOSE INJ UD Lorazepam (Ativan), 1 MG PO TID Metformin Hcl Er (Glucophage Er), 500 MG PO BID Pyridoxine (Vitamin B6), 100 MG PO DAILY Repaglinide (Prandin), 2 MG PO TID Ropinirole (Requip), 2 TABS PO HS Sacubitril-Valsartan (Entresto 24-26 mg), 1 TAB PO DAILY Warfarin Sod (Coumadin), 2.5 MG PO Q2D Warfarin Sodium (Coumadin), 3.75 MG PO DIRECTED Scheduled PRN Acetaminophen (Tylenol), 1-2 TABS PO Q6 PRN for Pain Nitroglycerin (Nitrostat), 0.4 MG UT UD PRN for Chest Pain Ondansetron Hcl (Zofran), 4 MG PO Q6 PRN for Nausea Senna/Docusate Sod (Senokot S), 1 TAB PO DAILY PRN for Constipation Physical Exam Vital Signs Date Time Temp Pulse Resp B/P (MAP) Pulse Ox O2 Delivery O2 Flow Rate FiO2 04/12/17 05:01 151/75 04/12/17 04:50 57 14 95 04/12/17 04:20 55 15 96 04/12/17 04:12 57 15 116/66 95 Room Air 04/12/17 03:55 57 04/12/17 03:08 95 Room Air 04/12/17 02:24 36.8 55 18 132/66 100 Room Air Physical Exam VITALS: Vitals are noted on the nurse's note and reviewed by myself. Vital signs stable. GENERAL: White male, in no acute distress, nondiaphoretic, well-developed well- nourished. SKIN: The skin was without rashes, erythema, edema, or bruising. There is no tenting of the skin. Capillary reflex less than 2 seconds. HEAD: Normocephalic atraumatic. EARS: External auditory canals clear, tympanic membranes pearly abdullahi without erythema or effusion bilaterally. EYES: Pupils equal round and reactive to light and accommodation. Conjunctivae without injection, sclerae without icterus. Extraocular movements intact. NOSE: Patent, turbinates without inflammation or discharge. MOUTH: Mucous membranes moist. Pharynx without erythema or exudate. Uvula midline. Airway patent. Tongue does not deviate. NECK: Supple without nuchal rigidity. No lymphadenopathy. No thyromegaly. Cervical spine is nontender. No JVD. HEART: Regular rate and rhythm LUNGS: Clear to auscultation bilaterally without wheezes, rales or rhonchi. No dullness to percussion. No retractions or accessory muscle use. ABDOMEN: Positive bowel sounds x 4. Normal tympanic percussion. Soft, minimally tender lower abdomen, no CVA tenderness, without masses or organomegaly. Barrera sign negative. No guarding or rebound tenderness. Rectal exam: Nonthrombosed hemorrhoid at 6:00, bright red dried blood present, no fissures or tears. MUSCULOSKELETAL: No muscle atrophy, erythema, or edema noted. NEURO: Patient was alert and oriented to person place and time. Normal sensation to light and sharp touch. No focal neurological deficits. Medical Decision & Procedures Laboratory Results 04/12/17 03:11 Red Blood Count 3.90, Mean Corpuscular Volume 87.2, Mean Corpuscular Hemoglobin 30.0, Mean Corpuscular Hemoglobin Concent 34.4, Mean Platelet Volume 10.4, Neutrophils (%) (Auto) 76.6, Lymphocytes (%) (Auto) 9.5, Monocytes (%) (Auto) 10.9, Eosinophils (%) (Auto) 2.4, Basophils (%) (Auto) 0.2, Neutrophils # (Auto ) 3.85, Lymphocytes # (Auto) 0.48, Monocytes # (Auto) 0.55, Eosinophils # (Auto ) 0.12, Basophils # (Auto) 0.01 04/12/17 03:11 Test 04/12/17 03:11 04/12/17 03:27 White Blood Count 5.03 K/uL (4.8-10.8) Red Blood Count 3.90 M/uL (4.7-6.1) Hemoglobin 11.7 g/dL (14.0-18.0) Hematocrit 34.0 % (42-52) Mean Corpuscular Volume 87.2 fL (80-100) Mean Corpuscular Hemoglobin 30.0 pg (25-34) Mean Corpuscular Hemoglobin Concent 34.4 g/dl (32-36) Platelet Count 137 K/uL (130-400) Mean Platelet Volume 10.4 fL (7.4-10.4) Neutrophils (%) (Auto) 76.6 % Lymphocytes (%) (Auto) 9.5 % Monocytes (%) (Auto) 10.9 % Eosinophils (%) (Auto) 2.4 % Basophils (%) (Auto) 0.2 % Neutrophils # (Auto) 3.85 K/uL (1.4-6.5) Lymphocytes # (Auto) 0.48 K/uL (1.2-3.4) Monocytes # (Auto) 0.55 K/uL (0.11-0.59) Eosinophils # (Auto) 0.12 K/uL (0-0.5) Basophils # (Auto) 0.01 K/uL (0-0.2) RDW Standard Deviation 47.2 fL (36.4-46.3) RDW Coefficient of Variation 15.0 % (11.5-14.5) Immature Granulocyte % (Auto) 0.4 % Immature Granulocyte # (Auto) 0.02 K/uL (0.00-0.02) Prothrombin Time 28.5 SECONDS (9.0-12.0) Prothromb Time International Ratio 2.6 (0.9-1.1) Activated Partial Thromboplast Time 32.0 SECONDS (21.0-31.0) Partial Thromboplastin Ratio 1.2 Anion Gap 7.0 mmol/L (3-11) Est Creatinine Clear Calc Drug Dose 70.1 ml/min Estimated GFR () 67.8 Estimated GFR (Non- 58.5 BUN/Creatinine Ratio 16.2 (10-20) Calcium Level 8.9 mg/dl (8.5-10.1) Total Bilirubin 0.5 mg/dl (0.2-1) Direct Bilirubin 0.1 mg/dl (0-0.2) Aspartate Amino Transf (AST/SGOT) 15 U/L (15-37) Alanine Aminotransferase (ALT/SGPT) 23 U/L (12-78) Alkaline Phosphatase 59 U/L (45-117) Troponin I 0.022 ng/ml (0-0.045) Total Protein 6.9 gm/dl (6.4-8.2) Albumin 3.5 gm/dl (3.4-5.0) Bedside Troponin I < 0.030 ng/ml (0-0.045) ED Course Prior records/ancillary studies reviewed. Triage Nursing notes reviewed. The patient's history was concerning for possible gastrointestinal bleeding. Differential diagnosis: Etiologies such as diverticulosis, AVM, coagulopathy, colitis, inflammatory bowel disease, malignancy, fissure, hemorrhoids, as well as others were entertained. Physical exam: As above. The patients vital signs were stable. ER treatment provided: Patient was observed On reassessment the patient felt better. Diagnostics interpreted by me: EC-year-old paced rhythm, no acute ST-T wave changes, rate of 55., Left axis deviation. T-wave inversions in the lateral leads and EKG compared to prior EKG with no acute changes noted. Impression left axis deviation with an atrial paced rhythm that is bradycardic interpreted by myself The labs revealed negative troponin Mild anemia. INR 2.6 Imaging studies: CT ABDOMEN & PELVIS: Elevated left hemidiaphragm with bibasilar atelectasis. Gallstones without CT evidence of acute cholecystitis. The liver, spleen, pancreas, and adrenal glands are unremarkable. Nonobstructing calculi are seen within both kidneys, the majority which are likely vascular. No hydronephrosis Brachytherapy seeds are noted within the prostate gland. There is a small fluid density cystic lesion posterior to the prostate gland and anterior to the rectum measuring up to 2.5 cm, which is nonspecific. The appendix is unremarkable. Stomach, small bowel, and colon are unremarkable. No free fluid. No free air. No acute osseous abnormality. Radiologist: Kelby Marcum MD Consultation: A consultation was placed with the [facility] hospitalist. The case was discussed and diagnostics were reviewed. The patient was evaluated in the ER for further treatment. This appears to be consistent with rectal bleeding who is anticoagulated. Patient will be evaluated by medicine for possible admission. Patient was neurovascularly and neurologically intact. A negative CT for acute findings. Stable H&H. By the evaluation outlined above emergent etiologies such as esophageal perforation, peptic ulcer disease, variceal bleed, gastritis, epistaxis, inflammatory bowel disease, as well as others were deemed relatively unlikely. The pt informed about the findings as listed above. All questions were answered and pleased with the treatment. Case reviewed with my attending Medical Decision As above Medication Reconcilliation Current Medication List: was personally reviewed by me Blood Pressure Screening Patient's blood pressure: Normal blood pressure Impression Primary Impression: Rectal bleeding Additional Impression: Anemia Departure Information Dispostion Being Evaluated By Hospitalist Condition FAIR Referrals Dixon Junior M.D. (PCP) Patient Instructions My [facility] Problem Qualifiers
--- NOTE | 2017-04-12 06:34 | EMERGENCY ROOM VISIT NOTE ---
ED Visit Note First contact with patient: 02:29 I have personally seen and evaluated the patient with the PA. I agree with the diagnosis and management decisions and have been personally involved in the case. Please see Noemy Alves PA-C's notes for further details of the history, physical and visit.
[2017-04-12] MEDS ORDERED: NITROGLYCERIN 0.4 MG SL PER TAB CHARGE UT PRN (06:45)
[2017-04-12] MEDS ORDERED: ACETAMINOPHEN 325 MG TAB PO PRN (06:45)
[2017-04-12] MEDS ORDERED: GLUCOSE 40% GEL 15 GM TUBE PO PRN (07:00)
[2017-04-12] MEDS ORDERED: GLUCAGON FOR INJ 1 MG VIAL SQ PRN (07:00)
[2017-04-12] MEDS ORDERED: DEXTROSE 50% 50 ML SYR IV PRN (07:00)
[2017-04-12] MEDS ORDERED: GLUCOSE 10 TABS/TUBE PO PRN (07:00)
[2017-04-12] MEDS ORDERED: ONDANSETRON INJ 2 MG/ML 2 ML VIAL IV PRN (07:00)
[2017-04-12 07:18] LABS: HEMATOCRIT 38.7 % (42-52)
[2017-04-12 07:19] VITALS: BP 121/68; PULSE 55; TEMP 37; O2SAT 97; Ht 182.9 cm; Wt 92.4 kg
--- NOTE | 2017-04-12 07:24 | DIAGNOSTIC IMAGING REPORT ---
ABDOMEN AND PELVIS CT WITH IV CONTRAST CT DOSE: 570.31 mGy.cm HISTORY: lower abdominal pain, GI bleed TECHNIQUE: Multiaxial CT images of the abdomen and pelvis were performed following the use of intravenous contrast. A dose lowering technique was utilized adhering to the principles of ALARA. COMPARISON STUDY: Abdomen and pelvis CT 10/31/2016. FINDINGS: Chronic elevation of the left hemidiaphragm, unchanged. Poststernotomy changes. Pacemaker wires are noted. No pneumoperitoneum. No pneumatosis. Multiple small stones within the gallbladder. The liver, pancreas, spleen, and a general glands are unremarkable. No hydronephrosis. Left retroaortic renal vein. Normal caliber abdominal aorta. No retroperitoneal lymphadenopathy. Bilateral renal sinus calcification. These are likely vascular. Stable bilateral renal hypodense lesions. No suspicious lytic or blastic osseous lesions. Normal appendix. A few punctate densities within the prostate gland consistent with posttreatment changes. Small hypodensity between the prostate gland and rectum is consistent with radiation protective gel. No bowel wall thickening or obstruction. Moderate stool throughout the colon. Mild thickening and adjacent fat stranding within the bladder. This is consistent with a nonspecific cystitis. IMPRESSION: 1. No bowel wall thickening or obstruction. 2. Mild thickening of the bladder wall with adjacent fat stranding. This is consistent with a nonspecific cystitis. This could be due to infectious or post radiation changes. Recommend correlation with urinalysis. 3. Additional stable findings as described above. Electronically signed by: Ulises Lucero M.D. 04/12/2017 7:23 AM Dictated Date/Time: 04/12/2017 7:17 AM
--- NOTE | 2017-04-12 07:40 | History and Physical ---
History & Physical Date & Time of Service: Apr 12, 2017 at 07:17 Chief Complaint: Rectal Bleeding Primary Care Physician: Dixon Junior M.D. History of Present Illness Source: patient The patient is a 61-year-old male who presents to the emergency department with abdominal bloating and pain followed by rectal bleeding. The patient is presently undergoing radiation therapy with Dr.Veeral Vega Sunday through Sunday for the past 7 weeks, with 2 weeks remaining, which he is anxious to finish. An Echocardiogram performed last month showed a possible atrial clot, for which he was started on warfarin 9 days ago by a process expert at [place]. His most recent scoping procedure was a sigmoidoscopy 3 years ago, which the patient reports was negative. He does have a history of hemorrhoids. He reports that tonight he had a normal bowel movement, and then felt like he needed to have a second bowel movement, at which time he was straining, and then noticed bright red blood in the toilet. He has not had any lightheadedness or dizziness or near syncopal type symptoms, chest pain or shortness of breath, fevers or chills, urinary frequency or urgency, dysuria or hematuria, focal weakness in arms or legs, numbness or tingling in arms or legs. He has been feeling weak on days of radiation therapy, and has had a decreased appetite during that time as well, however, on the weekends, he has more energy and is able to eat at that time. He sees Dr. Vásquez as his urologist. Past Medical/Surgical History Medical Problems: (1) Benign hypertension Status: Chronic (2) CAD (coronary artery disease) Status: Chronic (3) Cardiomyopathy Status: Chronic (4) Cardiovascular stress testing Status: Resolved (5) Diabetes mellitus type 2 Status: Chronic (6) Diabetic neuropathy Status: Chronic (7) Diabetic retinopathy Status: Chronic (8) Hyperlipidemia Status: Chronic (9) Myocardial infarction Status: Chronic Surgical Problems: (1) Hx of CABG Status: Resolved Family History FH: cancer FH: diabetes mellitus FH: heart disease FH: kidney disease Hypertension Social History Smoking Status: Never Smoker Smokeless Tobacco Use: No Alcohol Use: none Drug Use: none Marital Status: Housing status: lives alone Occupational Status: disabled Immunizations History of Influenza Vaccine: N/A Influenza Vaccine Date: Jun 14, 2012 History of Tetanus Vaccine?: Unknown History of Pneumococcal: No History of Hepatitis B Vaccine: No Multi-Drug Resistant Organisms History of MDRO: Yes Type of MDRO: VRE, MRSA Allergies Coded Allergies: Penicillins (Verified Allergy, Intermediate, RASH, 04/12/17) Pregabalin (Verified Allergy, Unknown, facial swelling, 04/12/17) Sitagliptin (Verified Allergy, Unknown, ., 04/12/17) Spironolactone (Verified Allergy, Unknown, UNKNOWN, 04/12/17) Citalopram (Verified Adverse Reaction, Unknown, dizziness, 04/12/17) Gabapentin (Verified Adverse Reaction, Unknown, dizziness, 04/12/17) Sertraline (Verified Adverse Reaction, Unknown, dizziness, 04/12/17) Home Medications Scheduled Amiodarone Hcl (Cordarone), 200 MG PO DAILY Aspirin (Aspirin 81), 81 MG PO DAILY Atorvastatin (Lipitor), 1 TAB PO DAILY Carvedilol (Coreg), 12.5 MG PO BID Cholecalciferol (Vitamin D3), 2,000 UNIT PO DAILY Coenzyme Q10 (Ubidecarenone) (Coq-10), 100 MG PO BID Doxycycline Hyclate (Vibramycin), 100 MG PO BID Leuprolide Acetate (Lupron Depot), 1 DOSE INJ UD Lorazepam (Ativan), 1 MG PO TID Metformin Hcl Er (Glucophage Er), 500 MG PO BID Pyridoxine (Vitamin B6), 100 MG PO DAILY Repaglinide (Prandin), 2 MG PO TID Ropinirole (Requip), 2 TABS PO HS Sacubitril-Valsartan (Entresto 24-26 mg), 1 TAB PO DAILY Warfarin Sod (Coumadin), 2.5 MG PO Q2D Warfarin Sodium (Coumadin), 3.75 MG PO DIRECTED Scheduled PRN Acetaminophen (Tylenol), 1-2 TABS PO Q6 PRN for Pain Nitroglycerin (Nitrostat), 0.4 MG UT UD PRN for Chest Pain Ondansetron Hcl (Zofran), 4 MG PO Q6 PRN for Nausea Senna/Docusate Sod (Senokot S), 1 TAB PO DAILY PRN for Constipation Review of Systems The patient denies chest pain, palpitations, shortness of breath, cough, lower extremity swelling, vision change, hearing change, sore throat, fevers, chills, sweats, nausea, vomiting, blood in urine or stool, dysuria, urinary frequency or urgency, lightheadedness, dizziness, headache, memory loss, rash, abnormal bruising, imbalance, focal weakness, numbness or tingling in arms or legs, arthralgias or myalgias, back or neck pain, night sweats, or allergy symptoms. The review of systems is otherwise negative other than for that already noted above, and at least 10 systems have been reviewed. Physical Exam Vital Signs Date Time Temp Pulse Resp B/P (MAP) Pulse Ox O2 Delivery O2 Flow Rate FiO2 04/12/17 07:04 61 20 143/102 97 04/12/17 06:41 60 16 98 04/12/17 06:31 161/86 04/12/17 06:11 61 98 04/12/17 06:06 59 14 96 04/12/17 06:02 151/74 04/12/17 05:06 55 14 04/12/17 05:01 151/75 04/12/17 04:50 57 14 95 04/12/17 04:20 55 15 96 04/12/17 04:12 57 15 116/66 95 Room Air 04/12/17 03:55 57 04/12/17 03:55 57 04/12/17 03:08 95 Room Air 04/12/17 02:24 36.8 55 18 132/66 100 Room Air The patient is awake, well-developed and adequately nourished, alert and oriented 3, normocephalic and atraumatic, lying in bed and in no acute distress. HEENT--PERRL, EOMI, mucous membranes and oropharynx dry. Neck--supple, no JVD or bruits, thyroid normal, trachea midline, no adenopathy. Heart--normal S1 and S2, no extra beats, no murmurs, rubs or gallops. Lungs--clear bilaterally with good air movement, no respiratory distress, no accessory muscle use. Abdomen--normal bowel sounds and soft, nontender and nondistended, no hernias or masses, no organomegaly. Extremities--no cyanosis, clubbing or edema. There are good distal pulses b/l. Dermatologic--normal skin turgor, normal color, warm and dry, no abnormal lymph nodes, no rash. Neurologic--cranial nerves II through XII grossly intact, motor and sensory examination normal. Rheumatologic--normal range of motion, nontender, muscles and joints. Psychiatric--normal affect. Diagnostics Laboratory Results Results Past 24 Hours Test 04/12/17 03:11 04/12/17 03:27 04/12/17 07:02 Range/Units White Blood Count 5.03 4.8-10.8 K/uL Red Blood Count 3.90 4.7-6.1 M/uL Hemoglobin 11.7 14.0-18.0 g/dL Hematocrit 34.0 42-52 % Mean Corpuscular Volume 87.2 80-100 fL Mean Corpuscular Hemoglobin 30.0 25-34 pg Mean Corpuscular Hemoglobin Concent 34.4 32-36 g/dl Platelet Count 137 130-400 K/uL Mean Platelet Volume 10.4 7.4-10.4 fL Neutrophils (%) (Auto) 76.6 % Lymphocytes (%) (Auto) 9.5 % Monocytes (%) (Auto) 10.9 % Eosinophils (%) (Auto) 2.4 % Basophils (%) (Auto) 0.2 % Neutrophils # (Auto) 3.85 1.4-6.5 K/uL Lymphocytes # (Auto) 0.48 1.2-3.4 K/uL Monocytes # (Auto) 0.55 0.11-0.59 K/uL Eosinophils # (Auto) 0.12 0-0.5 K/uL Basophils # (Auto) 0.01 0-0.2 K/uL RDW Standard Deviation 47.2 36.4-46.3 fL RDW Coefficient of Variation 15.0 11.5-14.5 % Immature Granulocyte % (Auto) 0.4 % Immature Granulocyte # (Auto) 0.02 0.00-0.02 K/uL Prothrombin Time 28.5 9.0-12.0 SECONDS Prothromb Time International Ratio 2.6 0.9-1.1 Activated Partial Thromboplast Time 32.0 21.0-31.0 SECONDS Partial Thromboplastin Ratio 1.2 Sodium Level 139 136-145 mmol/L Potassium Level 4.3 3.5-5.1 mmol/L Chloride Level 107 98-107 mmol/L Carbon Dioxide Level 25 21-32 mmol/L Anion Gap 7.0 3-11 mmol/L Blood Urea Nitrogen 21 7-18 mg/dl Creatinine 1.30 0.60-1.40 mg/dl Est Creatinine Clear Calc Drug Dose 70.1 ml/min Estimated GFR () 67.8 Estimated GFR (Non- 58.5 BUN/Creatinine Ratio 16.2 10-20 Random Glucose 105 70-99 mg/dl Calcium Level 8.9 8.5-10.1 mg/dl Total Bilirubin 0.5 0.2-1 mg/dl Direct Bilirubin 0.1 0-0.2 mg/dl Aspartate Amino Transf (AST/SGOT) 15 15-37 U/L Alanine Aminotransferase (ALT/SGPT) 23 12-78 U/L Alkaline Phosphatase 59 45-117 U/L Troponin I 0.022 0-0.045 ng/ml Total Protein 6.9 6.4-8.2 gm/dl Albumin 3.5 3.4-5.0 gm/dl Bedside Troponin I < 0.030 0-0.045 ng/ml EKG EKG shows an atrial paced rhythm at 55 bpm, LVH, no acute ST-T changes Impression Assessment and Plan Rectal bleeding/anemia/prostate cancer undergoing radiation therapy/warfarin therapy for atrial clot--patient be admitted to the telemetry unit for close monitoring. We'll check an H&H every 6 hours by 48 hours. Order type and screen. We will hold warfarin for now until determination is made whether to continue or reverse. We'll consult Dr. Omayra Vega from radiation oncology, Dr. Ramírez Bee from cardiology, and Dr. Pryor from gastroenterology. The patient has been seeing a process expert at [place], who started him on the Coumadin 9 days ago, and the patient reports that he was told by that process expert that he could potentially wait to start Coumadin until after the radiation therapy was completed. He reports that he was to get a YOVANNY sometime within the next week for further assessment. I told the patient that I would leave it up to this group of physicians to determine his further treatment. CAD/hypertension/cardiomyopathy/history of MO--we'll continue amiodarone 200 mg by mouth daily, carvedilol 12.5 mg by mouth twice a day. We will hold and trust oh, warfarin and aspirin. Diabetes mellitus--hold Prandin and metformin place on Accu-Cheks before meals and at bedtime with NovoLog coverage per scale. Hypercholesterolemia--hold Lipitor Anxiety--continue Ativan 1 mg by mouth 3 times a day. Restless leg syndrome for now hold Requip at bedtime. Level of Care Telemetry Advanced Directives Existing Advance Directive: No Existing Living Will: No Existing Power of Teacher Advisor: No Resuscitation Status FULL RESUSCITATION VTE Prophylaxis VTE Risk Assessment Done? Y/N: Yes Risk Level: Moderate Given or contraindicated: Warfarin (Coumadin) Social Service Consult Cancer Patient Under [place]
[2017-04-12] MEDS ORDERED: NON-FORMULARY MEDICATION (Coenzyme Q10 (Ubidecarenone) (Coq-10) 100 MG) PO SCH (09:00)
[2017-04-12] MEDS: FAMOTIDINE IV INJ 20 MG in DEXTROSE 5% 100ML 100 ML IV SCH ×2 (10:09→19:58)
[2017-04-12] MEDS: NSS + 20MEQ KCL 1000ML 1,000 ML IV SCH ×3 (10:09→23:02)
[2017-04-12] MEDS: INSULIN ASPART 100 UNITS/ML 3 ML PEN SC SCH ×4 (10:09→21:27)
[2017-04-12] MEDS: CHOLECALCIFEROL 1000 INTER.UNIT TAB PO SCH (10:12)
[2017-04-12] MEDS: AMIODARONE 200 MG TAB PO SCH (10:12)
[2017-04-12] MEDS: PYRIDOXINE HCL 50 MG TAB PO SCH (10:13)
[2017-04-12] MEDS: CARVEDILOL 12.5 MG TAB PO SCH ×2 (10:13→21:00)
[2017-04-12] MEDS: LORAZEPAM 1 MG TAB PO SCH ×3 (10:15→21:23)
--- NOTE | 2017-04-12 10:32 | Hospitalist Progress Note ---
Hospitalist Progress Note Date of Service Apr 12, 2017. Subjective Pt evaluation today including: conversation w/ patient, physical exam, chart review, lab review, review of studies The patient was seen and examined this morning. No interval change since 0700 admission. He is reporting lower abdominal irritation/discomfort. No further episodes of rectal bleeding since earlier. He denies any gas, distension, abdominal pain, but does report changes in bowel movement from constipation to diarrhea since the beginning of XRT therapy.. Pt is not interested in GI scope due to his heart condition and also does not want to delay radiation treatment. He started XRT in mid-February and has had 35 treatments so far, and scheduled for #36 today out of 45 total. He is also on Lupron injection therapy. Dr. Vega is on board and will be getting XRT this afternoon. Constitutional: No fever, No chills, No sweats ENT: No nasal symptoms, No trouble swallowing Cardiovascular: No chest pain, No edema Abdomen: + see HPI, No nausea, No vomiting Musculoskeletal: + problem reported (muscle wasting in BUE d/t Lupron per pt report), No joint pain Male : + hematuria (questionable?), No dysuria, No urinary frequency, No incontinence Neurologic: No memory loss, No weakness Objective Vital Signs Date Time Temp Pulse Resp B/P (MAP) Pulse Ox O2 Delivery O2 Flow Rate FiO2 04/12/17 07:19 37.0 55 18 121/68 97 Room Air 04/12/17 07:04 61 20 143/102 97 04/12/17 06:41 60 16 98 04/12/17 06:31 161/86 04/12/17 06:11 61 98 04/12/17 06:06 59 14 96 04/12/17 06:02 151/74 04/12/17 05:06 55 14 04/12/17 05:01 151/75 04/12/17 04:50 57 14 95 04/12/17 04:20 55 15 96 04/12/17 04:12 57 15 116/66 95 Room Air 04/12/17 03:55 57 04/12/17 03:55 57 04/12/17 03:08 95 Room Air 04/12/17 02:24 36.8 55 18 132/66 100 Room Air Physical Exam General Appearance: WD/WN, no apparent distress Eyes: PERRL, EOMI ENT: hearing grossly normal, pharynx normal Neck: supple, thyroid normal Respiratory/Chest: lungs clear, no respiratory distress, no accessory muscle use Cardiovascular: regular rate, rhythm, no edema, no murmur Abdomen: normal bowel sounds, non tender, soft, no organomegaly Extremities: non-tender, no pedal edema, + pertinent finding (Boot on R foot, chronic pressure wounds on bottom of R foot ) Neurologic/Psychiatric: alert, normal mood/affect, oriented x 3 Skin: normal color, warm/dry, + pertinent finding (flaking skin over all extremities) Laboratory Results Last 24 Hours Test 04/12/17 03:11 04/12/17 03:27 04/12/17 07:02 White Blood Count 5.03 K/uL Red Blood Count 3.90 M/uL Hemoglobin 11.7 g/dL 13.1 g/dL Hematocrit 34.0 % 38.7 % Mean Corpuscular Volume 87.2 fL Mean Corpuscular Hemoglobin 30.0 pg Mean Corpuscular Hemoglobin Concent 34.4 g/dl Platelet Count 137 K/uL Mean Platelet Volume 10.4 fL Neutrophils (%) (Auto) 76.6 % Lymphocytes (%) (Auto) 9.5 % Monocytes (%) (Auto) 10.9 % Eosinophils (%) (Auto) 2.4 % Basophils (%) (Auto) 0.2 % Neutrophils # (Auto) 3.85 K/uL Lymphocytes # (Auto) 0.48 K/uL Monocytes # (Auto) 0.55 K/uL Eosinophils # (Auto) 0.12 K/uL Basophils # (Auto) 0.01 K/uL RDW Standard Deviation 47.2 fL RDW Coefficient of Variation 15.0 % Immature Granulocyte % (Auto) 0.4 % Immature Granulocyte # (Auto) 0.02 K/uL Prothrombin Time 28.5 SECONDS Prothromb Time International Ratio 2.6 Activated Partial Thromboplast Time 32.0 SECONDS Partial Thromboplastin Ratio 1.2 Sodium Level 139 mmol/L Potassium Level 4.3 mmol/L Chloride Level 107 mmol/L Carbon Dioxide Level 25 mmol/L Anion Gap 7.0 mmol/L Blood Urea Nitrogen 21 mg/dl Creatinine 1.30 mg/dl Est Creatinine Clear Calc Drug Dose 70.1 ml/min Estimated GFR () 67.8 Estimated GFR (Non- 58.5 BUN/Creatinine Ratio 16.2 Random Glucose 105 mg/dl Calcium Level 8.9 mg/dl Total Bilirubin 0.5 mg/dl Direct Bilirubin 0.1 mg/dl Aspartate Amino Transf (AST/SGOT) 15 U/L Alanine Aminotransferase (ALT/SGPT) 23 U/L Alkaline Phosphatase 59 U/L Troponin I 0.022 ng/ml Total Protein 6.9 gm/dl Albumin 3.5 gm/dl Bedside Troponin I < 0.030 ng/ml Assessment and Plan Rectal bleeding/anemia/prostate cancer undergoing radiation therapy/warfarin therapy for atrial clot--patient be admitted to the telemetry unit for close monitoring. - Hbg is improving, can slow H&H checks to q8H for now. - We will hold warfarin for now until determination is made whether to continue or reverse. - Planned XRT therapy today at 1400. - discussed with Dr. Omayra Vega from radiation oncology - Dr. Ramírez Bee from cardiology - Dr. Correa from gastroenterology.- I discussed with Usha Martinez PA-C. Pt has follow up colonoscopy scheduled in May with GI at [place]. In the meantime he should have something to regulate his bowels, they plan to restart Metamucil. [place] Ap[place] [facility] [place] him on the Coumadin 9 days ago, and the patient reports that he was told by that typewriter tester that he could potentially wait to start Coumadin until after the radiation therapy was completed. He reports that he was to get a YOVANNY sometime within the next week for further assessment. - Will await cards recs CAD/hypertension/cardiomyopathy/history of GA -we'll continue amiodarone 200 mg by mouth daily, carvedilol 12.5 mg by mouth twice a day. We will hold entresto, warfarin and aspirin. Diabetes mellitus -hold Prandin and metformin place on ISS with Accu-Cheks ACHS Hypercholesterolemia -hold Lipitor Anxiety -continue Ativan 1 mg by mouth 3 times a day. Restless leg syndrome - for now hold Requip at bedtime. DVT ppx: chemical anticoagulation currently contraindicated with possible GI bleed. CODE STATUS: Full code Disposition: From home, likely can transfer out of the Unit today after radiation if Hgb remains stable to telemetry.
[2017-04-12 11:42] LABS: URINE APPEARANCE CLEAR (CLEAR); URINE BILIRUBIN NEG (NEG); URINE COLOR YELLOW; URINE EPITHELIAL CELL AUTO 0-5 /lpf (0-5); URINE NITRITE NEG (NEG); URINE PH 7.5 (4.5-7.5); URINE SPECIFIC GRAVITY 1.019 (1.000-1.030); UROBILINOGEN NEG (NEG)
[2017-04-12 11:43] LABS: MANUAL MICROSCOPIC REQUIRED? NO; REVIEW REQ? NO
[2017-04-12 12:00] VITALS: O2SAT 97
--- NOTE | 2017-04-12 12:40 | Gastrointestinal Consultation ---
Gastrointestinal Consultation Date of Consultation: Apr 12, 2017 Attending Physician: Dr. 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 The patient reports that he began Coumadin 9 days ago. He reports his radiation treatments have caused fluctuation between constipation & diarrhea. He reports he discontinued his Metamucil as well as his Miralax, Senna & stool softeners. He reports that he became constipated. Last night he reports he was straining to have a bowel movement and then reports noting significant amounts of bright red blood in the toilet. He reports that this happened several years ago and was due to hemorrhoids, but he notes that he did not have quite as much bleeding at that time. He had a flexible sigmoidoscopy in 2014 that indicated internal and external hemorrhoids. He did not wish to have a complete colonoscopy at that time as he did not want to be sedated. He denies abdominal pain, heartburn, acid reflux, or vomiting. His INR is 2.6. His H/H is 13.1/38.7. He had a CT of the abdomen/pelvis with IV contrast only that did not indicate any acute GI issue. Past Medical/Surgical History Medical Problems: (1) Anemia Status: Acute (2) Cellulitis of fifth toe of right foot Status: Acute (3) Cellulitis of foot Status: Acute (4) Diabetic foot ulcer Status: Acute (5) Diabetic neuropathy associated with type 2 diabetes mellitus Status: Acute (6) History of diabetic ulcer of foot Status: Acute (7) Rectal bleeding Status: Acute (8) Renal insufficiency Status: Acute Past Medical History: As per HPI Past Surgical History: Cardiac surgery including ICD placement, CABG Family History FH: cancer FH: diabetes mellitus FH: heart disease FH: kidney disease Hypertension Denies IBD or GI malignancy Social History Smoking Status: Never Smoker Alcohol Use: none Drug Use: none Marital Status: Housing Status: lives with family Occupation Status: disabled Allergies Coded Allergies: Penicillins (Verified Allergy, Intermediate, RASH, 04/12/17) Pregabalin (Verified Allergy, Unknown, facial swelling, 04/12/17) Sitagliptin (Verified Allergy, Unknown, ., 04/12/17) Spironolactone (Verified Allergy, Unknown, UNKNOWN, 04/12/17) Citalopram (Verified Adverse Reaction, Unknown, dizziness, 04/12/17) Gabapentin (Verified Adverse Reaction, Unknown, dizziness, 04/12/17) Sertraline (Verified Adverse Reaction, Unknown, dizziness, 04/12/17) Current Medications Home Meds and Scripts Medications Dose Route/Sig Max Daily Dose Days Date Category Dose Instructions Coumadin (Warfarin Sodium) 3 Mg Tab 3.75 Mg PO DIRECTED 04/12/17 Reported takes 3.75mg on // Coumadin (Warfarin Sod) 2.5 Mg Tab 2.5 Mg PO Q2D 04/12/17 Reported Lipitor (Atorvastatin Calcium) 40 Mg Tab 1 Tab PO DAILY 30 04/09/17 Reported Lupron Depot (Leuprolide Acetate) Unknown Strength Kit 1 Dose INJ UD 02/20/17 Reported Vibramycin (Doxycycline Hyclate) 100 Mg Cap 100 Mg PO BID 02/20/17 Reported Glucophage Er (Metformin HCl) 500 Mg Tab 500 Mg PO BID 02/20/17 Reported Senokot S (Senna/Docusate Sodium) 1 Tab Tab 1 Tab PO DAILY PRN 11/16/16 Reported Zofran (Ondansetron HCl) 4 Mg Tab 4 Mg PO Q6 PRN 11/06/16 Reported Tylenol (Acetaminophen) 500 Mg Tab 1-2 Tabs PO Q6 PRN 11/06/16 Reported Aspirin 81 (Aspirin) 81 Mg Tab 81 Mg PO DAILY 11/06/16 Reported Vitamin B6 (Pyridoxine HCl) 100 Mg Tab 100 Mg PO DAILY 06/04/16 Reported Entresto 24-26 mg (Sacubitril-Valsartan) 1 Tab Tab 1 Tab PO DAILY 06/04/16 Reported Coreg (Carvedilol) 12.5 Mg Tab 12.5 Mg PO BID 06/04/16 Reported Vitamin D3 (Cholecalciferol) 2,000 Unit Cap 2,000 Unit PO DAILY 06/04/16 Reported Requip (Ropinirole HCl) 0.25 Mg Tab 2 Tabs PO HS 07/29/15 Reported take 2 tablets Coq-10 (Coenzyme Q10 (Ubidecarenone)) 100 Mg Cap 100 Mg PO BID 10/11/13 Reported Ativan (Lorazepam) 1 Mg Tab 1 Mg PO TID 10/11/13 Reported Cordarone (Amiodarone Hcl) 200 Mg Tab 200 Mg PO DAILY 10/11/13 Reported Prandin (Repaglinide) 1 Mg Tab 2 Mg PO TID 10/11/13 Reported 2 pills @ Breakfast, 2 pill @ Lunch, 2 pills @ Dinner Nitrostat (Nitroglycerin) 0.4 Mg Sub 0.4 Mg UT UD PRN 03/03/13 Reported NEEDED FOR CHEST PAIN : ONE TABLET UNDER THE TONGUE EVERY 5 MINUTES UP TO 3 DOSES. Review of Systems Constitutional: No fever, No chills Eyes: No problem reported Respiratory: No cough, No shortness of breath Cardiac: No chest pain Abdomen: + diarrhea, + constipation, + GI bleeding, No pain, No nausea, No vomiting Musculoskeletal: No joint pain Neuro: No problem reported Psych: No problem reported Endo: No problem reported Physical Exam Date Time Temp Pulse Resp B/P (MAP) Pulse Ox O2 Delivery O2 Flow Rate FiO2 04/12/17 07:19 37.0 55 18 121/68 97 Room Air 04/12/17 07:04 61 20 143/102 97 04/12/17 06:41 60 16 98 04/12/17 06:31 161/86 04/12/17 06:11 61 98 04/12/17 06:06 59 14 96 04/12/17 06:02 151/74 04/12/17 05:06 55 14 04/12/17 05:01 151/75 04/12/17 04:50 57 14 95 04/12/17 04:20 55 15 96 04/12/17 04:12 57 15 116/66 95 Room Air 04/12/17 03:55 57 04/12/17 03:55 57 04/12/17 03:08 95 Room Air 04/12/17 02:24 36.8 55 18 132/66 100 Room Air General Appearance: WD/WN, no apparent distress Eyes: normal inspection, PERRL Respiratory/Chest: lungs clear, normal breath sounds Cardiovascular: regular rate, rhythm Abdomen: normal bowel sounds, non tender, soft Extremities: non-tender, + pertinent finding (Boot on left foot) Neurologic/Psych: alert, oriented x 3 Skin: normal color Laboratory Results Last 24 Hours Test 04/12/17 03:11 04/12/17 03:27 04/12/17 07:02 04/12/17 10:30 White Blood Count 5.03 K/uL Red Blood Count 3.90 M/uL Hemoglobin 11.7 g/dL 13.1 g/dL Hematocrit 34.0 % 38.7 % Mean Corpuscular Volume 87.2 fL Mean Corpuscular Hemoglobin 30.0 pg Mean Corpuscular Hemoglobin Concent 34.4 g/dl Platelet Count 137 K/uL Mean Platelet Volume 10.4 fL Neutrophils (%) (Auto) 76.6 % Lymphocytes (%) (Auto) 9.5 % Monocytes (%) (Auto) 10.9 % Eosinophils (%) (Auto) 2.4 % Basophils (%) (Auto) 0.2 % Neutrophils # (Auto) 3.85 K/uL Lymphocytes # (Auto) 0.48 K/uL Monocytes # (Auto) 0.55 K/uL Eosinophils # (Auto) 0.12 K/uL Basophils # (Auto) 0.01 K/uL RDW Standard Deviation 47.2 fL RDW Coefficient of Variation 15.0 % Immature Granulocyte % (Auto) 0.4 % Immature Granulocyte # (Auto) 0.02 K/uL Prothrombin Time 28.5 SECONDS Prothromb Time International Ratio 2.6 Activated Partial Thromboplast Time 32.0 SECONDS Partial Thromboplastin Ratio 1.2 Sodium Level 139 mmol/L Potassium Level 4.3 mmol/L Chloride Level 107 mmol/L Carbon Dioxide Level 25 mmol/L Anion Gap 7.0 mmol/L Blood Urea Nitrogen 21 mg/dl Creatinine 1.30 mg/dl Est Creatinine Clear Calc Drug Dose 70.1 ml/min Estimated GFR () 67.8 Estimated GFR (Non- 58.5 BUN/Creatinine Ratio 16.2 Random Glucose 105 mg/dl Calcium Level 8.9 mg/dl Total Bilirubin 0.5 mg/dl Direct Bilirubin 0.1 mg/dl Aspartate Amino Transf (AST/SGOT) 15 U/L Alanine Aminotransferase (ALT/SGPT) 23 U/L Alkaline Phosphatase 59 U/L Troponin I 0.022 ng/ml Total Protein 6.9 gm/dl Albumin 3.5 gm/dl Bedside Troponin I < 0.030 ng/ml Urine Color YELLOW Urine Appearance CLEAR Urine pH 7.5 Urine Specific [place] 1.019 Urine Protein NEG Urine Glucose (UA) NEG Urine Ketones NEG Urine Occult Blood 1+ Urine Nitrite NEG Urine Bilirubin NEG Urine Urobilinogen NEG Urine Leukocyte Esterase NEG Urine WBC (Auto) 0 /hpf Urine RBC (Auto) 5-10 /hpf Urine Hyaline Casts (Auto) 0 /lpf Urine Epithelial Cells (Auto) 0-5 /lpf Urine Bacteria (Auto) NEG Test 04/12/17 11:53 Impression Patient is a 61 year old male with constipation and rectal bleeding who is currently on anticoagulation for an apical thrombus and receiving radiation for prostate cancer. Plan 1) Patient is not interested in proceeding with any GI work-up at the present time. He does not wish to do anything to delay his radiation treatments for his prostate cancer. He also reports that he is not interested in undergoing any medical procedure at [facility] particularly if it involves anesthesia as he does not have access to his team of cardiac providers from [facility]. He has a colonoscopy scheduled for May 22 at [facility]. 2) Continue to monitor H/H and monitor for further bleeding. 3) Recommend initiation of Metamucil 1 tablespoon daily in 8 oz noncarbonated beverage. Discussed that this should help improve his fluctuation between constipation and diarrhea. Discussed that if he still struggles with constipation beyond that, it is okay to use Miralax and/or stool softeners, though would avoid Senna. Supportive care per primary team. Thank you for allowing us to participate in the care of this patient. If you should have any further questions or concerns, do not hesitate to contact us. Agree with VIDA Ceballos as above Abd: Soft, NT, ND, +BS Patient does not wish to undergo any invasive testing at this time. He has a colonoscopy scheduled with [facility] in [place] in May, and would like to keep that appointment. I informed him that we will follow his clinical course and make further recommendations as needed.
--- NOTE | 2017-04-12 13:38 | CARDIOLOGY CONSULTATION ---
DATE OF CONSULTATION: 04/12/2017 REQUESTING: Hospitalist. REASON FOR CONSULTATION: Lower GI bleeding and a history of left ventricular thrombus. HISTORY OF PRESENT ILLNESS: This is a 61-year-old male patient who is usually followed by Dr. Ryan Aldridge through the [facility] cardiology group. He has a history of ischemic cardiomyopathy with his last estimated left ventricular ejection fraction being 30%. He also has a history of coronary artery bypass surgery and received a MEJIA to the LAD in 2012. He has a dual-chamber ICD for primary prevention. The patient was last seen by Dr. Aldridge at the end of March. 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 According to Dr. Aldridge's notes when he reviewed previous echocardiograms this was not a new finding and it most likely had been there for an extended period of time. This patient is followed also by Dr. Nic Curiel at [facility] through the [facility]. Apparently, the patient contacted Dr. Curiel and he was started on Coumadin approximately 9 days ago and scheduled to have a YOVANNY in [place]. The patient was admitted after he had an episode of lower GI bleeding filling the toilet bowl with blood. He was then admitted to the hospital. This patient has been receiving external beam radiation treatments for prostate cancer and had a known history of some lower GI bleeding before he was put on Coumadin. Please see second consult as dictation was cut off. MTDD
--- NOTE | 2017-04-12 15:47 | Urology Consultation ---
History General Date of Service: Apr 12, 2017. Chief Complaint: ? cystitis, prostate cancer Primary Care Physician: Dixon Junior M.D. Pt seen a urologist before?: Yes (Dr. Maxime Casanova, Dr. Juanjose Vásquez) If yes, why?: prostate cancer History of Present Illness 61 yo male with prostate cancer admitted with rectal bleeding. Currently in the process of receiving XRT for his prostate cancer. Received tx #[id number] out of 45 earlier this afternoon. consulted for ? cystitis on CT scan. Pt denies any urinary symptoms or pain at this time. No UAs or cultures have been obtained thus far. He has a previous hx of lower GI bleed. Scheduled for colonoscopy in [place] in May. GI consult noted. Also noted to have a hx of apical thrombus for which he was placed on Coumadin. H&H stable at 12.6 and 37.0. Imaging Imaging: CT Laboratory Last 24 Hours Test 04/12/17 03:11 04/12/17 03:27 04/12/17 07:02 04/12/17 10:30 White Blood Count 5.03 K/uL Red Blood Count 3.90 M/uL Hemoglobin 11.7 g/dL 13.1 g/dL Hematocrit 34.0 % 38.7 % Mean Corpuscular Volume 87.2 fL Mean Corpuscular Hemoglobin 30.0 pg Mean Corpuscular Hemoglobin Concent 34.4 g/dl Platelet Count 137 K/uL Mean Platelet Volume 10.4 fL Neutrophils (%) (Auto) 76.6 % Lymphocytes (%) (Auto) 9.5 % Monocytes (%) (Auto) 10.9 % Eosinophils (%) (Auto) 2.4 % Basophils (%) (Auto) 0.2 % Neutrophils # (Auto) 3.85 K/uL Lymphocytes # (Auto) 0.48 K/uL Monocytes # (Auto) 0.55 K/uL Eosinophils # (Auto) 0.12 K/uL Basophils # (Auto) 0.01 K/uL RDW Standard Deviation 47.2 fL RDW Coefficient of Variation 15.0 % Immature Granulocyte % (Auto) 0.4 % Immature Granulocyte # (Auto) 0.02 K/uL Prothrombin Time 28.5 SECONDS Prothromb Time International Ratio 2.6 Activated Partial Thromboplast Time 32.0 SECONDS Partial Thromboplastin Ratio 1.2 Sodium Level 139 mmol/L Potassium Level 4.3 mmol/L Chloride Level 107 mmol/L Carbon Dioxide Level 25 mmol/L Anion Gap 7.0 mmol/L Blood Urea Nitrogen 21 mg/dl Creatinine 1.30 mg/dl Est Creatinine Clear Calc Drug Dose 70.1 ml/min Estimated GFR () 67.8 Estimated GFR (Non- 58.5 BUN/Creatinine Ratio 16.2 Random Glucose 105 mg/dl Calcium Level 8.9 mg/dl Total Bilirubin 0.5 mg/dl Direct Bilirubin 0.1 mg/dl Aspartate Amino Transf (AST/SGOT) 15 U/L Alanine Aminotransferase (ALT/SGPT) 23 U/L Alkaline Phosphatase 59 U/L Troponin I 0.022 ng/ml Total Protein 6.9 gm/dl Albumin 3.5 gm/dl Bedside Troponin I < 0.030 ng/ml Urine Color YELLOW Urine Appearance CLEAR Urine pH 7.5 Urine Specific [place] 1.019 Urine Protein NEG Urine Glucose (UA) NEG Urine Ketones NEG Urine Occult Blood 1+ Urine Nitrite NEG Urine Bilirubin NEG Urine Urobilinogen NEG Urine Leukocyte Esterase NEG Urine WBC (Auto) 0 /hpf Urine RBC (Auto) 5-10 /hpf Urine Hyaline Casts (Auto) 0 /lpf Urine Epithelial Cells (Auto) 0-5 /lpf Urine Bacteria (Auto) NEG Test 04/12/17 11:14 04/12/17 11:53 Bedside Glucose 105 mg/dl Hemoglobin 12.6 g/dL Hematocrit 37.0 % Problem List Medical Problems: (1) Anemia Status: Acute (2) Cellulitis of fifth toe of right foot Status: Acute (3) Cellulitis of foot Status: Acute (4) Diabetic foot ulcer Status: Acute (5) Diabetic neuropathy associated with type 2 diabetes mellitus Status: Acute (6) History of diabetic ulcer of foot Status: Acute (7) Rectal bleeding Status: Acute (8) Renal insufficiency Status: Acute Past History BPH, cancer - prostate, coronary artery disease, diabetes, high cholesterol, myocardial infarction, other (cardiomyopathy, diabetic retinopathy) Past Surgical History: coronary bypass surgery Family History FH: cancer FH: diabetes mellitus FH: heart disease FH: kidney disease Hypertension Social History Hx Tobacco Use In Past Year?: No Smoking: non-smoker Alcohol: never Drug use: none Marital status: Housing status: lives alone Occupation status: disabled Immunizations History of Influenza Vaccine: N/A Influenza Vaccine Date: Jun 14, 2012 History of Tetanus Vaccine?: Unknown History of Pneumococcal: No History of Hepatitis B Vaccine: No History of MDRO Yes Type of MDRO: VRE, MRSA Allergies Coded Allergies: Penicillins (Verified Allergy, Intermediate, RASH, 04/12/17) Pregabalin (Verified Allergy, Unknown, facial swelling, 04/12/17) Sitagliptin (Verified Allergy, Unknown, ., 04/12/17) Spironolactone (Verified Allergy, Unknown, UNKNOWN, 04/12/17) Citalopram (Verified Adverse Reaction, Unknown, dizziness, 04/12/17) Gabapentin (Verified Adverse Reaction, Unknown, dizziness, 04/12/17) Sertraline (Verified Adverse Reaction, Unknown, dizziness, 04/12/17) Medications Home Medications: Home Meds and Scripts Medications Dose Route/Sig Max Daily Dose Days Date Category Dose Instructions Coumadin (Warfarin Sodium) 3 Mg Tab 3.75 Mg PO DIRECTED 04/12/17 Reported takes 3.75mg on // Coumadin (Warfarin Sod) 2.5 Mg Tab 2.5 Mg PO Q2D 04/12/17 Reported Lipitor (Atorvastatin Calcium) 40 Mg Tab 1 Tab PO DAILY 30 04/09/17 Reported Lupron Depot (Leuprolide Acetate) Unknown Strength Kit 1 Dose INJ UD 02/20/17 Reported Vibramycin (Doxycycline Hyclate) 100 Mg Cap 100 Mg PO BID 02/20/17 Reported Glucophage Er (Metformin HCl) 500 Mg Tab 500 Mg PO BID 02/20/17 Reported Senokot S (Senna/Docusate Sodium) 1 Tab Tab 1 Tab PO DAILY PRN 11/16/16 Reported Zofran (Ondansetron HCl) 4 Mg Tab 4 Mg PO Q6 PRN 11/06/16 Reported Tylenol (Acetaminophen) 500 Mg Tab 1-2 Tabs PO Q6 PRN 11/06/16 Reported Aspirin 81 (Aspirin) 81 Mg Tab 81 Mg PO DAILY 11/06/16 Reported Vitamin B6 (Pyridoxine HCl) 100 Mg Tab 100 Mg PO DAILY 06/04/16 Reported Entresto 24-26 mg (Sacubitril-Valsartan) 1 Tab Tab 1 Tab PO DAILY 06/04/16 Reported Coreg (Carvedilol) 12.5 Mg Tab 12.5 Mg PO BID 06/04/16 Reported Vitamin D3 (Cholecalciferol) 2,000 Unit Cap 2,000 Unit PO DAILY 06/04/16 Reported Requip (Ropinirole HCl) 0.25 Mg Tab 2 Tabs PO HS 07/29/15 Reported take 2 tablets Coq-10 (Coenzyme Q10 (Ubidecarenone)) 100 Mg Cap 100 Mg PO BID 10/11/13 Reported Ativan (Lorazepam) 1 Mg Tab 1 Mg PO TID 10/11/13 Reported Cordarone (Amiodarone Hcl) 200 Mg Tab 200 Mg PO DAILY 10/11/13 Reported Prandin (Repaglinide) 1 Mg Tab 2 Mg PO TID 10/11/13 Reported 2 pills @ Breakfast, 2 pill @ Lunch, 2 pills @ Dinner Nitrostat (Nitroglycerin) 0.4 Mg Sub 0.4 Mg UT UD PRN 03/03/13 Reported NEEDED FOR CHEST PAIN : ONE TABLET UNDER THE TONGUE EVERY 5 MINUTES UP TO 3 DOSES. Inpatient Medications: Current Inpatient Medications Medications (Trade) Dose Ordered Sig/Donato Route Start Time Stop Time Status Last Admin Dose Admin Potassium Chloride/Sodium Chloride 1,000 ml @ 100 mls/hr Q10H IV 04/12/17 08:00 05/12/17 07:59 04/12/17 10:09 100 MLS/HR Acetaminophen (Tylenol Tab) 650 mg Q4H PRN PO 04/12/17 06:45 05/12/17 06:44 Amiodarone HCl (Cordarone Tab) 200 mg DAILY PO 04/12/17 09:00 05/12/17 08:59 04/12/17 10:12 200 MG Carvedilol (Coreg Tab) 12.5 mg BID PO 04/12/17 09:00 05/12/17 08:59 Lorazepam (Ativan Tab) 1 mg TID PO 04/12/17 09:00 05/12/17 08:59 04/12/17 14:55 1 MG Nitroglycerin (Nitrostat Tab) 0.4 mg UD PRN UT 04/12/17 06:45 05/12/17 06:44 Pyridoxine HCl (Vitamin B-6 Tab) 100 mg DAILY PO 04/12/17 09:00 05/12/17 08:59 04/12/17 10:13 100 MG Cholecalciferol (Vitamin D Tab) 2,000 inter.unit DAILY PO 04/12/17 09:00 05/12/17 08:59 04/12/17 10:12 2,000 INTER.UNIT Ondansetron HCl (Zofran Inj) 4 mg Q6H PRN IV 04/12/17 07:00 05/12/17 06:59 Insulin Aspart (novoLOG ASPART) SLIDING SCALE If C... ACHS SC 04/12/17 07:00 05/12/17 06:59 04/12/17 13:11 2 UNITS Glucose (Glucose 40% Gel) UD PRN PO 04/12/17 07:00 05/12/17 06:59 Glucose (Glucose Chew Tab) 1 tabs UD PRN PO 04/12/17 07:00 05/12/17 06:59 Dextrose (Dextrose 50% 50ML Syringe) 50 ml UD PRN IV 04/12/17 07:00 05/12/17 06:59 Glucagon (Glucagon Inj) 1 mg UD PRN SQ 04/12/17 07:00 05/12/17 06:59 Famotidine 20 mg/ Dextrose 102 ml @ 200 mls/hr Q12H IV 04/12/17 08:00 05/12/17 07:59 04/12/17 10:09 200 MLS/HR Sacubitril/ Valsartan (Entresto 24-26 Mg) 1 tab BID PO 04/12/17 21:00 05/12/17 20:59 Review of Systems Review of Systems Constitutional: No fever, No chills Eyes: No double vision Neurological: No dizzy Endocrine: No excessive thirst Gastrointestinal: No abdominal pain, No nausea, No vomiting Cardiovascular: No chest pain Respiratory: No shortness of breath Skin: No rash Musculoskeletal: No back pain Male : No painful urination, No blood in urine Physical Exam Vital Signs: Vital Signs Past 12 Hours Date Time Temp Pulse Resp B/P (MAP) Pulse Ox O2 Delivery O2 Flow Rate FiO2 04/12/17 12:00 97 Room Air 04/12/17 12:00 97 Room Air 04/12/17 07:19 37.0 55 18 121/68 97 Room Air 04/12/17 07:04 61 20 143/102 97 04/12/17 06:41 60 16 98 04/12/17 06:31 161/86 04/12/17 06:11 61 98 04/12/17 06:06 59 14 96 04/12/17 06:02 151/74 04/12/17 05:06 55 14 04/12/17 05:01 151/75 04/12/17 04:50 57 14 95 04/12/17 04:20 55 15 96 04/12/17 04:12 57 15 116/66 95 Room Air 04/12/17 03:55 57 04/12/17 03:55 57 Physical Exam: General Appearance: no apparent distress Eyes: bilateral eyes normal inspection ENT: hearing grossly normal Neck: no JVD Respiratory/Chest: no respiratory distress, no accessory muscle use Cardiovascular: no JVD Extremities: normal inspection Neurologic/Psychiatric: alert, normal mood/affect, oriented x 3 Skin: normal color Assessment & Plan Assessment & Plan A/P: Prostate cancer Rectal bleeding and cystitis not uncommon in the setting of XRT. Will check a UA, UC&S, and urine cytology, but not overly concerning at this time. F/u for colonoscopy as scheduled. Continue XRT per radiation oncology. Will arrange for outpatient f/u with Dr. Vásquez in 3 weeks. Thanks for the consult. No further management at this time. Recall PRN issues. The pt was seen and assessed in conjunction with Dr. Casanova this afternoon.
[2017-04-12 18:49] VITALS: BP 120/70; PULSE 55; TEMP 36.7; O2SAT 95
[2017-04-12 18:56] LABS: HEMATOCRIT 37.1 % (42-52)
[2017-04-12] MEDS ORDERED: NURSING VERBAL MED ORDER ONE (19:15)
[2017-04-12] MEDS ORDERED: POLYETHYLENE (MIRALAX) 17 GM PACK PO PRN (19:15)
[2017-04-12] MEDS: DOCUSATE SODIUM 100 MG CAP PO SCH (21:24)
[2017-04-12] MEDS: SACUBITRIL-VALSARTAN 24-26 MG TAB PO SCH (21:24)
[2017-04-12 23:02] VITALS: BP 111/67; PULSE 54; TEMP 36.6; O2SAT 98
--- NOTE | 2017-04-13 00:53 | CARDIOLOGY CONSULTATION ---
DATE OF CONSULTATION: 04/12/2017 REFERRING PHYSICIAN: [facility] hospitalist. REASON FOR CONSULTATION: Lower GI bleeding with a history of cardiomyopathy. HISTORY OF PRESENT ILLNESS: This is a 61-year-old male patient who is usually followed by Dr. Ramesh Aldridge at the [facility] cardiology. He has a history of an ischemic cardiomyopathy with his last estimated left ventricular ejection fraction being 30%. He also has a history of prior coronary artery bypass surgery receiving a MEJIA to the LAD in 2012. He is status post dual chamber [employer] ICD for primary prevention. The patient had a routine visit with Dr. Aldridge at the end of March. At that time, he also had a routine followup echocardiogram to evaluate his LV function. It was noted that he had a laminated apical thrombus in the left ventricle. When prior echocardiograms were reviewed, it was found to be present on previous studies, which suggested that this was not an acute thrombus. The patient has been receiving external beam radiation for prostate cancer. It was felt by Dr. Aldridge that the patient should not go on anticoagulation at least until his treatments were completed and especially in light that the patient was experiencing some intermittent rectal bleeding during these treatments. The patient is also followed by the heart failure service at [facility]. He follows with Dr. Nic Myles and after his most recent visit with Dr. Aldridge, he called Dr. Myles, who then put him on Coumadin. The patient was on Coumadin for approximately 9 days and then on the day of admission, he had bleeding from his rectum that is filled the toilet bowl. The patient then was admitted to the hospital. He has remained hemodynamically stable and his hemoglobin today is 12.6. He has been taken off of his warfarin. The patient was seen by the GI service and he wants to have no procedures performed here at [facility]. He also has a YOVANNY scheduled at [facility] in [place] and would prefer to keep that appointment. He has no current cardiac complaints. He denies shortness of breath or chest pain. He has had no heart palpitations, dizziness or lightheadedness. ALLERGIES: CITALOPRAM, GABAPENTIN, PENICILLIN, PREGABALIN, SERTRALINE, SITAGLIPTIN AND SPIROLACTONE. PAST MEDICAL HISTORY: As outlined above, the patient has an ischemic cardiomyopathy with previous coronary artery bypass surgery and a primary prevention ICD. Apparently, the patient at one time was considered for an LVAD implant and was sent to [facility] as a possible transplant candidate, but was turned down because the patient has had multiple diabetic foot ulcers. Including the diabetes, the patient also has chronic stage III kidney disease and hyperlipidemia. As mentioned above, he is being treated for prostate cancer and is in the middle of his radiation treatments. SOCIAL HISTORY: He has never smoked. He is . FAMILY MEDICAL HISTORY: Significant for diabetes and heart disease. REVIEW OF SYSTEMS: A 10-point review of systems is negative except for the history of chief complaint. PHYSICAL EXAMINATION: GENERAL: He is alert and oriented in no acute distress. VITAL SIGNS: Blood pressure is 140/100 and pulse is regular at 60. He is afebrile. HEENT: He is normocephalic. Pupils are equal and reactive to light. Extraocular muscles are intact bilaterally. NECK: The neck veins are flat. Carotids have good upstrokes bilaterally without bruits. Thyroid is nonpalpable. RESPIRATORY: Breath sounds equal bilaterally and clear to auscultation. CARDIOVASCULAR: Heart has a regular rhythm. Normal S1 and S2. No S3 or S4. No cardiac rubs or murmurs. GASTROINTESTINAL: Abdomen is soft and nontender without organomegaly. EXTREMITIES: Free of edema, digit clubbing, or cyanosis. NEUROLOGIC: Grossly intact. SKIN: Warm to touch. LYMPH NODES: Negative to palpation. LABORATORY DATA: Hemoglobin is 12.6. Potassium is 4.3 and creatinine is 1.3. INR on admission is 2.6. IMPRESSION: 1. Lower gastrointestinal bleeding, possibly due to radiation proctitis. 2. Prostate cancer. 3. Ischemic cardiomyopathy with chronic systolic heart failure. 4. ICD for primary prevention. 5. Status post coronary artery bypass surgery. RECOMMENDATIONS: I had a long discussion with the patient regarding anticoagulation. I would favor not restarting the Coumadin due to risk of bleeding. I believe the patient is going to have continued problems with radiation proctitis and other changes of the rectum due to the external beam radiation that will make him high risk for lower GI bleeding on Coumadin. I also spoke by telephone with Dr. Aldridge, who has reviewed this patient's echocardiograms and he believes that the thrombus is most likely laminated and organized and not an acute thrombus, which makes him less likely to have an embolic event. I would maintain him on aspirin unless he has further bleeding, then I would stop the aspirin as well. All the other medications should remain the same and he should be restarted on Entresto. I did offer the patient to have a YOVANNY here at [facility], but he refused and wants to proceed to [place] to his YOVANNY next week.
[2017-04-13 01:16] LABS: HEMATOCRIT 37.3 % (42-52)
[2017-04-13 03:54] VITALS: BP 108/54; PULSE 57; TEMP 36.7; O2SAT 97
[2017-04-13 05:51] LABS: BASO % 0.4 %; BASO ABS # 0.02 K/uL (0-0.2); COMPLETE YES; EOS % 1.7 %; HEMATOCRIT 35.6 % (42-52); IG% 0.4 %; LYMPH ABS # 0.46 K/uL (1.2-3.4); MEAN CELL VOLUME 88.3 fL (80-100); MEAN CORPUSCULAR HEMOGLOBIN 29.8 pg (25-34); MEAN CORPUSCULAR HGB CONC 33.7 g/dl (32-36); MEAN PLATELET VOLUME 9.9 fL (7.4-10.4); MONO % 16.1 %; NEUT % 71.4 %; PLATELET COUNT 119 K/uL (130-400); RED BLOOD COUNT 4.03 M/uL (4.7-6.1); WHITE BLOOD COUNT 4.61 K/uL (4.8-10.8)
[2017-04-13 06:02] LABS: INR 2.1 (0.9-1.1); PARTIAL THROMBOPLASTIN RATIO 1.3; PROTHROMBIN TIME (PATIENT) 22.8 SECONDS (9.0-12.0)
[2017-04-13 06:45] LABS: BUN/CREATININE RATIO 14.6 (10-20); CALCIUM 8.8 mg/dl (8.5-10.1); CREATININE 1.4 mg/dl (0.60-1.40); MAGNESIUM 2.3 mg/dl (1.8-2.4); POTASSIUM 4.2 mmol/L (3.5-5.1)
[2017-04-13 07:20] VITALS: BP 120/73; PULSE 58; TEMP 36.4; O2SAT 95
[2017-04-13] MEDS: CARVEDILOL 12.5 MG TAB PO SCH (07:55)
[2017-04-13] MEDS: PYRIDOXINE HCL 50 MG TAB PO SCH (07:55)
[2017-04-13] MEDS: AMIODARONE 200 MG TAB PO SCH (07:55)
[2017-04-13] MEDS: CHOLECALCIFEROL 1000 INTER.UNIT TAB PO SCH (07:56)
[2017-04-13] MEDS: DOCUSATE SODIUM 100 MG CAP PO SCH (07:56)
[2017-04-13] MEDS: INSULIN ASPART 100 UNITS/ML 3 ML PEN SC SCH ×2 (08:10→12:10)
[2017-04-13] MEDS: FAMOTIDINE IV INJ 20 MG in DEXTROSE 5% 100ML 100 ML IV SCH (08:58)
[2017-04-13] MEDS: LORAZEPAM 1 MG TAB PO SCH ×2 (08:58→12:11)
[2017-04-13] MEDS: SACUBITRIL-VALSARTAN 24-26 MG TAB PO SCH (08:58)
[2017-04-13] MEDS ORDERED: CIPROFLOXACIN 500 MG TAB PO SCH (09:00)
--- NOTE | 2017-04-13 09:31 | PROGRESS NOTE ---
DATE: 04/13/2017 FOLLOWUP VISIT SUBJECTIVE: The patient is a 61-year-old male with a history of prostatic carcinoma being treated with external beam radiation. He also has a history of a cardiomyopathy and on a recent echocardiogram was noted to have a laminated apical thrombus. The patient was started on Coumadin and developed lower GI bleeding which has now resolved after the Coumadin has been discontinued. He has no complaints this morning. OBJECTIVE: VITAL SIGNS: Blood pressure 120/70, pulse is regular at 60 beats per minute. He is afebrile. GENERAL: He is alert and oriented, in no acute distress. HEENT: He is normocephalic. Pupils are equal and reactive to light. Extraocular muscles are intact bilaterally. NECK: The neck veins are flat. Carotids have good upstrokes bilaterally without bruits. Thyroid is nonpalpable. RESPIRATORY: Breath sounds equal bilaterally and clear to auscultation. CARDIOVASCULAR: Heart has a regular rhythm. Normal S1, S2. No S3, S4. No cardiac rubs or murmurs. GASTROINTESTINAL: Abdomen is soft, nontender without organomegaly. EXTREMITIES: Free of edema, digital clubbing, or cyanosis. NEUROLOGIC: Grossly intact. SKIN: Warm to touch. LYMPH NODES: Negative to palpation. IMPRESSION: 1. Lower gastrointestinal bleeding due to a combination of external beam radiation for prostate cancer and Coumadin therapy. 2. Ischemic cardiomyopathy with a laminated apical thrombus. 3. Status post coronary artery bypass surgery with a MEJIA to the LAD in 2012. 4. ICD. RECOMMENDATIONS: As outlined above, I believe the patient should be discharged off of Coumadin. The risk of rebleeding in this situation with the patient receiving external beam radiation for prostate cancer is too high. The patient does not want a GI workup here. He wants to travel to [place] for any procedures. He also does not want a transesophageal echocardiogram performed here. He has one scheduled next week in [place] and he will keep that appointment and any other followup appointments with [facility] in [place] or [place].
--- NOTE | 2017-04-13 09:55 | Clinical Documentation Query ---
CLINICAL DOCUMENTATION QUERY Dr. PEREA, In your clinical opinion is this patient being managed for: ( X ) Nonthrombosed hemorrhoids likely causing rectal bleeding ( ) Other explanation of clinical findings (Please Explain) ( ) Unable to determine (Please Define) ( ) Need to Discuss ( ) Not Agree The medical record reflects the following clinical findings, treatment, and risk factors. Clinical Indicators:61 yo male presenting with rectal bleeding after having a strained stool. ER assessment indicates pt has nonthrombosed hemorroids with bright red dried blood noted Treatment: GI consult, hold coumadin, IV fluids, IV pepcid, recommendation to start metamucil to regulate bowels, monitor H/H's Risk Factors: hemorrhoids, constipation, Please clarify and document your clinical opinion in the progress notes and discharge summary. Terms such as "probable", "suspected", "likely", "questionable", "possible", or "still to be ruled out" are acceptable. IF IN AGREEMENT, YOU MUST DOCUMENT ABOVE DIAGNOSTIC STATEMENT IN DAILY PROGRESS NOTES AND DISCHARGE SUMMARY. This document is not part of the patient's record. Thank You, Henna Matthew RN [phone]
[2017-04-13] MEDS ORDERED: MRLP17X PO (10:18)
--- NOTE | 2017-04-13 10:30 | Discharge Instructions ---
Discharge Instructions Date of Service Apr 13, 2017. Admission Reason for Admission: Anemia, Rectal Bleeding Discharge Discharge Diagnosis / Problem: Radiation cystitis Discharge Goals Goal(s): Decrease discomfort, Improve function, Increase independence, Improve disease control Activity Recommendations Activity Limitations: resume your previous activity Lifting Limitations: no more than 25 pounds, gradually increase as tolerated Exercise/Sports Limitations: gradually increase as tolerated Shower/Bathe: no limitations Driving or Machine Use: no limitations . Instructions / Follow-Up Instructions / Follow-Up You were admitted to [facility] with rectal bleed and anemia and diagnosed with radiation cystitis. - During your stay here you were treated with supportive care, and radiation therapy was continued. - You were evaluated by Cardiology- discussion was held with your retail advertising sales manager at [facility], Dr. Aldridge, and the decision was made to discontinue coumadin as the possible clot was likely chronic and not a new apical thrombus which required anticoagulation. Your hemoglobin improved. - You should continue other medications including entresto and baby aspirin. - If bleeding reoccurs or worsens, call your family physician or come directly to the ER. Medications: - Your urine was cultured and found to have Gram negative bacilli in it, so you were started on an antibiotic - Cipro 500 mg twice daily x 7 days. - The formal culture is not yet resulted, but you will be called with results and if the antibiotic needs to be changed. If you do not hear anything by Monday 04/16, please call your family physician. Follow up: Follow up with your Primary Care Provider within 1 week. Current Hospital Diet Patient's current hospital diet: AHA Diet (Heart Healthy), Diabetes Type 2 Diet Discharge Diet Recommended Diet: AHA Diet (Heart Healthy), Diabetes Type 2 Diet Procedures Procedures Performed: Continued radiation therapys Pending Studies Studies pending at discharge: yes List of pending studies: Urine Culture Medical Emergencies . Who to Call and When: Medical Emergencies: If at any time you feel your situation is an emergency, please call 911 immediately. . Non-Emergent Contact Non-Emergency issues call your: Primary Care Provider Call Non-Emergent contact if: you have a fever, temperature is above 100.5, your pain is not controlled, your pain is worsening, your pain is unusual for you, your pain is concerning you, you have any medication questions . Past History Medical & Surgical History: (1) Radiation cystitis (2) Rectal bleeding (3) Anemia . "Provider Documentation" section prepared by Carla Escalona. . VTE Core Measure Inpt VTE Proph given/why not?: Nadia Summers, SCD's
--- NOTE | 2017-04-13 10:41 | Radiation Oncology Progress Nt ---
Radiation Oncology Progress Nt Date of Service Date of Service: Apr 12, 2017. Reason For Admission Rectal bleeding econdary to anti-coagulation (potential clot in heart) Requesting Physician Dr. Ba Diagnosis (1) Prostate cancer Rising PSA Prostate biopsy 04/13/2015 benign Continued rise in PSA trial of finasteride for 2 months Pretreatment PSA 11.1 Ultrasound-guided biopsies 10/19/2016 revealing adenocarcinoma of the prostate with a Octaviano 4+4 Biopsy stage T2c cN0 M0 Last Edited By: Felicity Briseno on Nov 16, 2016 11:09 (2) Rectal bleeding Subjective Pt evaluation today including: conversation w/ patient, conversation with hospitalist, conversation with inpatient team, chart review, lab review, review of studies, review of inpatient medication list Radiation Therapy Has patient started Radiation: Yes Number of Treatments Received: 35 Number of Treatments Planned: 45 Current Chemotherapy: No Additional Chemotherapy Firmagon IM (Urology) Objective Vital Signs Date Time Temp Pulse Resp B/P (MAP) Pulse Ox O2 Delivery O2 Flow Rate FiO2 04/13/17 08:00 Room Air 04/13/17 07:20 36.4 58 20 120/73 (89) 95 Room Air 04/13/17 04:00 Room Air 04/13/17 03:54 36.7 57 20 108/54 (72) 97 Room Air 04/13/17 00:00 Room Air 04/12/17 23:02 36.6 54 16 111/67 (82) 98 Room Air 04/12/17 20:00 Room Air 04/12/17 18:49 36.7 55 20 120/70 (87) 95 Room Air 04/12/17 17:52 Room Air 04/12/17 12:00 97 Room Air 04/12/17 12:00 97 Room Air Physical Exam General Appearance: WD/WN, no apparent distress Eyes: normal inspection ENT: normal ENT inspection Neck: supple, no adenopathy Respiratory/Chest: chest non-tender Extremities: normal range of motion Neurologic/Psychiatric: chronic condition nurse II-XII nml as tested, alert, oriented x 3 Lymphatic: no adenopathy Laboratory Results Last 24 Hours Test 04/12/17 11:14 04/12/17 11:53 04/12/17 16:34 04/12/17 18:45 Bedside Glucose 105 mg/dl 107 mg/dl Hemoglobin 12.6 g/dL 12.4 g/dL Hematocrit 37.0 % 37.1 % Test 04/12/17 19:27 04/13/17 00:32 04/13/17 05:34 04/13/17 06:55 Bedside Glucose 111 mg/dl 104 mg/dl Hemoglobin 13.0 g/dL 12.0 g/dL Hematocrit 37.3 % 35.6 % White Blood Count 4.61 K/uL Red Blood Count 4.03 M/uL Mean Corpuscular Volume 88.3 fL Mean Corpuscular Hemoglobin 29.8 pg Mean Corpuscular Hemoglobin Concent 33.7 g/dl Platelet Count 119 K/uL Mean Platelet Volume 9.9 fL Neutrophils (%) (Auto) 71.4 % Lymphocytes (%) (Auto) 10.0 % Monocytes (%) (Auto) 16.1 % Eosinophils (%) (Auto) 1.7 % Basophils (%) (Auto) 0.4 % Neutrophils # (Auto) 3.29 K/uL Lymphocytes # (Auto) 0.46 K/uL Monocytes # (Auto) 0.74 K/uL Eosinophils # (Auto) 0.08 K/uL Basophils # (Auto) 0.02 K/uL RDW Standard Deviation 48.3 fL RDW Coefficient of Variation 14.8 % Immature Granulocyte % (Auto) 0.4 % Immature Granulocyte # (Auto) 0.02 K/uL Prothrombin Time 22.8 SECONDS Prothromb Time International Ratio 2.1 Activated Partial Thromboplast Time 33.8 SECONDS Partial Thromboplastin Ratio 1.3 Sodium Level 140 mmol/L Potassium Level 4.2 mmol/L Chloride Level 107 mmol/L Carbon Dioxide Level 27 mmol/L Anion Gap 6.0 mmol/L Blood Urea Nitrogen 20 mg/dl Creatinine 1.40 mg/dl Est Creatinine Clear Calc Drug Dose 60.1 ml/min Estimated GFR () 62.0 Estimated GFR (Non- 53.5 BUN/Creatinine Ratio 14.6 Random Glucose 90 mg/dl Calcium Level 8.8 mg/dl Magnesium Level 2.3 mg/dl Total Bilirubin 0.7 mg/dl Direct Bilirubin 0.2 mg/dl Aspartate Amino Transf (AST/SGOT) 18 U/L Alanine Aminotransferase (ALT/SGPT) 21 U/L Alkaline Phosphatase 45 U/L Total Protein 6.7 gm/dl Albumin 3.4 gm/dl Assessment and Plan We have discussed the patients care with the primary hospital service. The patients reason for admission is unrelated to radiation therapy. The primary hospital service has recommended the patient continue with radiation therapy while in the inpatient setting. The patient was evaluated in our department and will continue with radiation therapy during this hospital course. Please call us with any further questions or concerns or if the patients condition changes during her hospital admission.
[2017-04-13] MEDS ORDERED: CPR500 PO (10:54)
[2017-04-13 10:58] VITALS: BP 115/75; PULSE 55; TEMP 36.5; O2SAT 97
[2017-04-13 11:49] VITALS: BP 115/75; PULSE 55; TEMP 36.5; O2SAT 97
--- NOTE | 2017-04-13 14:04 | Discharge Summary ---
Discharge Summary Date of Service Apr 13, 2017. (Maggy Escalona PA-C) Discharge Summary Admission Date: Apr 12, 2017 at 06:46 Discharge Date: Apr 13, 2017 Discharge Disposition: Home Principal Diagnosis: Radiation Cystitis Immunizations: Have You Had Influenza Vaccine: N/A Influenza Vaccine Date: Jun 14, 2012 History of Tetanus Vaccine?: Unknown History of Pneumococcal: No History of Hepatitis B Vaccine: No Procedures: ABDOMEN AND PELVIS CT WITH IV CONTRAST CT DOSE: 570.31 mGy.cm HISTORY: lower abdominal pain, GI bleed TECHNIQUE: Multiaxial CT images of the abdomen and pelvis were performed following the use of intravenous contrast. A dose lowering technique was utilized adhering to the principles of ALARA. COMPARISON STUDY: Abdomen and pelvis CT 10/31/2016. FINDINGS: Chronic elevation of the left hemidiaphragm, unchanged. Poststernotomy changes. Pacemaker wires are noted. No pneumoperitoneum. No pneumatosis. Multiple small stones within the gallbladder. The liver, pancreas, spleen, and a general glands are unremarkable. No hydronephrosis. Left retroaortic renal vein. Normal caliber abdominal aorta. No retroperitoneal lymphadenopathy. Bilateral renal sinus calcification. These are likely vascular. Stable bilateral renal hypodense lesions. No suspicious lytic or blastic osseous lesions. Normal appendix. A few punctate densities within the prostate gland consistent with posttreatment changes. Small hypodensity between the prostate gland and rectum is consistent with radiation protective gel. No bowel wall thickening or obstruction. Moderate stool throughout the colon. Mild thickening and adjacent fat stranding within the bladder. This is consistent with a nonspecific cystitis. IMPRESSION: 1. No bowel wall thickening or obstruction. 2. Mild thickening of the bladder wall with adjacent fat stranding. This is consistent with a nonspecific cystitis. This could be due to infectious or post radiation changes. Recommend correlation with urinalysis. 3. Additional stable findings as described above. Electronically signed by: Ulises Lucero M.D. 04/12/2017 7:23 AM Dictated Date/Time: 04/12/2017 7:17 AM The status of this report is Signed. Consultations: Urology Gastroenterology Cardiology (Maggy Escalona PA-C) Medication Reconciliation New Medications: Polyethylene (Miralax) 17 Gm Pow 17 GM PO DAILY PRN for Constipation for 30 Days, #30 DOSE Continued Medications: Acetaminophen (Tylenol) 500 Mg Tab 1-2 TABS PO Q6 PRN for Pain, TAB Amiodarone Hcl (Cordarone) 200 Mg Tab 200 MG PO DAILY, TAB Aspirin (Aspirin 81) 81 Mg Tab 81 MG PO DAILY Atorvastatin (Lipitor) 40 Mg Tab 1 TAB PO DAILY for 30 Days, #30 TAB 5 Refills Carvedilol (Coreg) 12.5 Mg Tab 12.5 MG PO BID, 1 Refill Cholecalciferol (Vitamin D3) 2,000 Unit Cap 2000 UNIT PO DAILY, 3 Refills Coenzyme Q10 (Ubidecarenone) (Coq-10) 100 Mg Cap 100 MG PO BID Doxycycline Hyclate (Vibramycin) 100 Mg Cap 100 MG PO BID, #60 Leuprolide Acetate (Lupron Depot) Unknown Strength Kit 1 DOSE INJ UD Lorazepam (Ativan) 1 Mg Tab 1 MG PO TID, TAB Metformin Hcl Er (Glucophage Er) 500 Mg Tab 500 MG PO BID, #60 Nitroglycerin (Nitrostat) 0.4 Mg Sub 0.4 MG UT UD PRN for Chest Pain NEEDED FOR CHEST PAIN : ONE TABLET UNDER THE TONGUE EVERY 5 MINUTES UP TO 3 DOSES. Ondansetron Hcl (Zofran) 4 Mg Tab 4 MG PO Q6 PRN for Nausea, TAB Pyridoxine (Vitamin B6) 100 Mg Tab 100 MG PO DAILY, TAB Repaglinide (Prandin) 1 Mg Tab 2 MG PO TID 2 pills @ Breakfast, 2 pill @ Lunch, 2 pills @ Dinner Ropinirole (Requip) 0.25 Mg Tab 2 TABS PO HS take 2 tablets Sacubitril-Valsartan (Entresto 24-26 mg) 1 Tab Tab 1 TAB PO DAILY Discontinued Medications: Senna/Docusate Sod (Senokot S) 1 Tab Tab 1 TAB PO DAILY PRN for Constipation, TAB Warfarin Sod (Coumadin) 2.5 Mg Tab 2.5 MG PO Q2D, TAB Warfarin Sodium (Coumadin) 3 Mg Tab 3.75 MG PO DIRECTED, TAB takes 3.75mg on // Discharge Exam The patient was seen and examined this morning. Pt reports doing well this morning. He has no acute complaints. He is anticipating discharge after speaking with Dr. glass this morning. Review of Systems: Constitutional: No fever, No chills Eyes: No redness, No diplopia ENT: No tinnitus, No trouble swallowing Respiratory: No shortness of breath, No dyspnea on exertion Cardiovascular: No chest pain, No edema Abdomen: + problem reported (Pt has mild discomfort with palpation in the lower abdomen), No pain, No nausea, No vomiting, No diarrhea, No constipation Musculoskeletal: No muscle pain, No swelling, No calf pain Genitourinary - Male: No dysuria, No urinary frequency, No urinary urgency Neurologic: No weakness, No numbness/tingling Endocrine: No fatigue Integumentary: No rash, No itch Physical Exam: General Appearance: WD/WN, no apparent distress Eyes: PERRL, EOMI ENT: hearing grossly normal, pharynx normal Neck: supple, no JVD Respiratory/Chest: chest non-tender, lungs clear, normal breath sounds, no accessory muscle use Cardiovascular: regular rate, rhythm, no murmur Abdomen / GI: normal bowel sounds, non tender, soft Extremities: no calf tenderness, no pedal edema, + pertinent finding (R foot in pressure offloading boot) Neurologic/Psychiatric: alert, normal mood/affect, oriented x 3 Skin: normal color, warm/dry (Maggy Escalona, RAULITO) Hospital Course H&P per Dr. Hart History of Present Illness Source: patient The patient is a 61-year-old male who presents to the emergency department with abdominal bloating and pain followed by rectal bleeding. The patient is presently undergoing radiation therapy with Dr.Veeral Vega Sunday through Sunday for the past 7 weeks, with 2 weeks remaining, which he is anxious to finish. An Echocardiogram performed last month showed a possible atrial clot, for which he was started on warfarin 9 days ago by a technician chemical cleaning at [place]. His most recent scoping procedure was a sigmoidoscopy 3 years ago, which the patient reports was negative. He does have a history of hemorrhoids. He reports that tonight he had a normal bowel movement, and then felt like he needed to have a second bowel movement, at which time he was straining, and then noticed bright red blood in the toilet. He has not had any lightheadedness or dizziness or near syncopal type symptoms, chest pain or shortness of breath, fevers or chills, urinary frequency or urgency, dysuria or hematuria, focal weakness in arms or legs, numbness or tingling in arms or legs. He has been feeling weak on days of radiation therapy, and has had a decreased appetite during that time as well, however, on the weekends, he has more energy and is able to eat at that time. He sees Dr. Vásquez as his urologist. The patient is awake, well-developed and adequately nourished, alert and oriented 3, normocephalic and atraumatic, lying in bed and in no acute distress. HEENT--PERRL, EOMI, mucous membranes and oropharynx dry. Neck--supple, no JVD or bruits, thyroid normal, trachea midline, no adenopathy. Heart--normal S1 and S2, no extra beats, no murmurs, rubs or gallops. Lungs--clear bilaterally with good air movement, no respiratory distress, no accessory muscle use. Abdomen--normal bowel sounds and soft, nontender and nondistended, no hernias or masses, no organomegaly. Extremities--no cyanosis, clubbing or edema. There are good distal pulses b/l. Dermatologic--normal skin turgor, normal color, warm and dry, no abnormal lymph nodes, no rash. Neurologic--cranial nerves II through XII grossly intact, motor and sensory examination normal. Rheumatologic--normal range of motion, nontender, muscles and joints. Psychiatric--normal affect. Hospital Course: Rectal bleeding/anemia/prostate cancer undergoing radiation therapy/warfarin therapy for atrial clot--patient be admitted to the telemetry unit for close monitoring. - Hbg remained stable on multiple rechecks - We will hold warfarin for now until determination is made whether to continue or reverse. - XRT was continued throughout admission at- discussed with Dr. Omayra Vega from radiation oncology - Dr. Correa from gastroenterology.- I discussed with Usha Martinez PA-C. Pt has follow up colonoscopy scheduled in May with GI at [place]. Metamucil was restarted to aid in helping regulate bowel movements. Apical Thrombus [place] [facility] him on the Coumadin 9 days ago, and the patient reports that he was told by that technician chemical cleaning that he could potentially wait to start Coumadin until after the radiation therapy was completed. He reports that he was to get a YOVANNY sometime within the next week for further assessment. - Dr. Glass from cardiology followed with the patient: he recommended discontinuing coumadin. Entresto and baby aspirin were continued. If the patient were to experience rebleeding, it may be required to have him stop aspirin. This was discussed with his technician chemical cleaning, Dr. Aldridge, from [facility]. CAD/hypertension/cardiomyopathy/history of AL - Continue amiodarone 200 mg by mouth daily, carvedilol 12.5 mg by mouth twice a day. Restart entresto and aspirin. - Hold coumadin indefinitely Diabetes mellitus - Held Prandin and metformin and placed on ISS with Accu-Cheks ACHS, restarted oral agents at time of discharge Hypercholesterolemia - Resume Lipitor Anxiety -continue Ativan 1 mg by mouth 3 times a day. Restless leg syndrome - Resume Requip at bedtime. DVT ppx: chemical anticoagulation currently contraindicated with possible GI bleed. CODE STATUS: Full code Disposition: From home, discharge to home today. Total Time Spent: Greater than 30 minutes This includes examination of the patient, discharge planning, medication reconciliation, and communication with other providers. (Maggy Escalona PA-C) Discharge Instructions Please refer to the electronic Patient Visit Report (Discharge Instructions) for additional information. (Maggy Escalona PA-C) Follow-Up Follow up with your Primary Care Provider within 1 week. Follow up with cardiology within 1-2 weeks. Follow up with GI as already scheduled Follow up with radiation oncology as already scheduled for continued XRT. (Maggy Escalona PA-C) Additional Copies To Dixon Junior M.D. Reviewed: Pt Seen/Exam by Me (Yana Douglas DO) History Pt is doing well. No further bleeding noted. No chest pain or SOB. Is anxious to maintain his radiation schedule. Tolerating PO. Agree with HPI/ROS as noted. (Yana Douglas DO) General Appearance: WD/WN, no apparent distress Respiratory: normal breath sounds, no respiratory distress Cardiovascular: normal peripheral pulses, regular rate, rhythm Gastrointestinal: non tender, soft Extremities: non-tender, no pedal edema Neurologic/Psychiatric: alert, oriented x 3 Skin Characteristics: normal color, warm/dry (Yana Douglas, DO) Assessment/Plan Agree with plan as outlined above Rectal bleeding likely related to radiation proctitis Pt deferring c-scope Hb stable UA on admission with blood only Urine cx reported for gram neg bacilli and pt started on abx, however informed later in the day that this was a lab error and pt's cx was neg Abx will not be continued (Yana Douglas, DO)
[2017-04-14] MEDS ORDERED: SACUBITRIL-VALSARTAN 24-26 MG TAB PO SCH (09:00)
--- NOTE | 2017-05-11 21:22 | EDITING REQUIRED CODING QUERY ---
ANEMIA Dear Dr. Douglas, To promote full compliance with coding requirements relating to patient care, physician participation is requested in all cases of shipping receiving clerk uncertainty. Please assist us with the question(s) below: Coding Question(s): What type of anemia does the patient have? Please specify the known or suspected type by placing an "X" within the parenthesis (x). If other, please document type. Examples are: (x ) Acute blood loss anemia ( ) Acute Postoperative blood loss anemia ( ) Acute postoperative anemia due to dilutional fluids ( ) Chronic blood loss anemia (x ) Anemia of chronic disease ( ) Aplastic anemia ( ) Anemia due to renal disease (x ) Anemia in neoplastic disease ( ) Iron deficient anemia ( ) Anemia, unspecified or other ( ) Other: (please specify) ( ) Unable to determine Thank you for your time. Kya Franco, [employer]
[2017-05-25] MEDS ORDERED: TRL150 PO (11:18)
[2017-05-25] MEDS ORDERED: SACU1TAB PO (11:18)
[2017-05-25] MEDS ORDERED: CARV12.52 PO (11:18)
[2017-05-25] MEDS ORDERED: FURO-85 PO (11:18)
== END 2017-04-13 14:13 | disposition home or self-care (01) | DRG 699 ==
LOC: C.EDB 02:20 → C.MSICU 06:46 → EDBEDREQ 06:49 → ENRESERV 06:53 → C.2T 17:33 → ENRESERV 04-13 07:37 → CANBEDREQ 04-13 08:50
PROVIDERS: ADMIT Hospitalist; ATTEND Family Medicine
DX: N30.41 Irradiation cystitis with hematuria (principal); K62.5 Hemorrhage of anus and rectum; I50.22 Chronic systolic (congestive) heart failure; D62 Acute posthemorrhagic anemia; Y84.2 Radiological procedure and radiotherapy as the cause of abnormal reaction of the patient, or of later complication, without mention of misadventure at the time of the procedure; C61 Malignant neoplasm of prostate; F32.9 Major depressive disorder, single episode, unspecified; I25.10 Atherosclerotic heart disease of native coronary artery without angina pectoris; I11.0 Hypertensive heart disease with heart failure; I25.2 Old myocardial infarction; E11.40 Type 2 diabetes mellitus with diabetic neuropathy, unspecified; E11.319 Type 2 diabetes mellitus with unspecified diabetic retinopathy without macular edema; E78.5 Hyperlipidemia, unspecified; E78.00 Pure hypercholesterolemia, unspecified; I25.5 Ischemic cardiomyopathy; F41.9 Anxiety disorder, unspecified; Z53.29 Procedure and treatment not carried out because of patient's decision for other reasons; D63.0 Anemia in neoplastic disease; G25.81 Restless legs syndrome; D63.8 Anemia in other chronic diseases classified elsewhere; Z95.1 Presence of aortocoronary bypass graft; Z95.810 Presence of automatic (implantable) cardiac defibrillator; Z79.82 Long term (current) use of aspirin; Z79.84 Long term (current) use of oral hypoglycemic drugs; Z79.1 Long term (current) use of non-steroidal anti-inflammatories (NSAID); Z79.899 Other long term (current) drug therapy; Z80.9 Family history of malignant neoplasm, unspecified; Z82.49 Family history of ischemic heart disease and other diseases of the circulatory system; Z83.3 Family history of diabetes mellitus; Z51.0 Encounter for antineoplastic radiation therapy; N18.3 Chronic kidney disease, stage 3 (moderate)

== ENCOUNTER → 2017-05-28 | Day surgery (SDC) | payer OTHER, BC ==
[2017-05-25 10:57] VITALS: BMI 28.0
[~2017-05-28] VITALS: Ht 182.9 cm; Wt 93.2 kg
[~2017-05-28] MED LIST changes: +FENTANYL CITRATE INJ 50 MCG/1 ML 2 ML VIAL ONE; +FURO-85 PO; +LIDOCAINE HCL 2% 2 ML VIAL (20MG/ML) ONE; +MIDAZOLAM HCL 1 MG/ML 2ML VIAL ONE; +NURSING VERBAL MED ORDER ONE; -ONDA4TAB46 PO; +ONDANSETRON INJ 2 MG/ML 2 ML VIAL IV STA; +ONDANSETRON INJ 2 MG/ML 2 ML VIAL ONE; +PROPOFOL IV EMULSION 10 MG/ML 20 ML VIAL IV ONE; -SENN-65 PO; +TRL150 PO; -WARF1TAB PO
[2017-05-28 15:17] VITALS: Ht 182.9 cm; Wt 93.2 kg
[2017-05-28 15:40] VITALS: TEMP 36.9
--- NOTE | 2017-05-28 16:00 | Endo History and Physical ---
History & Physical Date of Service: May 28, 2017. Chief Complaint: ANEMIA S/P GI BLEED FE DEFIENCY CHANGE BOWEL HABITS Referring Physician: DR. MARSH History of Present Illness 61 yo CM who presents for colonoscopy secondary to rectal bleeding and Iron deficiency anemia. Past Medical History Diabetes, Angioplasty/Stent, Arthritis, Pacemaker, ASHD, Anxiety, CABG, Heart Disease, CHF, Hypertension, Implantable Defibrillator, Other, Depression Past Surgical History Hx Cardiac Surgery: Yes (CORONARY ARTERY BYPASS SURGERY, ICD/PACER PLACED, HEART CATH STENT) Hx Internal Defibrillator: Yes Hx Pacemaker: Yes Hx Abdominal Surgery: No Hx Post-Op Nausea and Vomiting: No Hx Cancer Surgery: No Hx Thoracic Surgery: No Hx Orthopedic: No Hx Urinary Tract Surgery: No Family History None Social History Smoking Status: Never Smoker Hx Substance Use: No Hx Alcohol Use: No Allergies Coded Allergies: Penicillins (Verified Allergy, Intermediate, RASH, 05/28/17) Pregabalin (Verified Allergy, Unknown, facial swelling, 05/28/17) Sitagliptin (Verified Allergy, Unknown, ., 05/28/17) Spironolactone (Verified Allergy, Unknown, UNKNOWN, 05/28/17) Citalopram (Verified Adverse Reaction, Unknown, dizziness, 05/28/17) Gabapentin (Verified Adverse Reaction, Unknown, dizziness, 05/28/17) Sertraline (Verified Adverse Reaction, Unknown, dizziness, 05/28/17) Current Medications Reported Home Medications Medications Dose Route/Sig Max Daily Dose Days Date Category Dose Instructions Oxcarbazepine 150 Mg Tab 150 Mg PO BID 05/25/17 Reported Lasix (Furosemide) 20 Mg Tab 20 Mg PO Q2D 05/25/17 Reported Coreg (Carvedilol) 12.5 Mg Tab 12.5 Mg PO QPM 05/25/17 Reported Lipitor (Atorvastatin Calcium) 40 Mg Tab 1 Tab PO HS 04/09/17 Reported Lupron Depot (Leuprolide Acetate) Unknown Strength Kit 1 Dose INJ UD 02/20/17 Reported Vibramycin (Doxycycline Hyclate) 100 Mg Cap 100 Mg PO BID 02/20/17 Reported Glucophage Er (Metformin HCl) 500 Mg Tab 500 Mg PO BID 02/20/17 Reported Tylenol (Acetaminophen) 500 Mg Tab 1-2 Tabs PO Q6 PRN 11/06/16 Reported Aspirin 81 (Aspirin) 81 Mg Tab 81 Mg PO QAM 11/06/16 Reported Vitamin B6 (Pyridoxine HCl) 100 Mg Tab 100 Mg PO QAM 06/04/16 Reported Entresto 24-26 mg (Sacubitril-Valsartan) 1 Tab Tab 1 Tab PO HS 06/04/16 Reported Coreg (Carvedilol) 12.5 Mg Tab 6.25 Mg PO QAM 06/04/16 Reported Vitamin D3 (Cholecalciferol) 2,000 Unit Cap 2,000 Unit PO QAM 06/04/16 Reported Requip (Ropinirole HCl) 0.25 Mg Tab 2 Tabs PO HS 07/29/15 Reported take 2 tablets Coq-10 (Coenzyme Q10 (Ubidecarenone)) 100 Mg Cap 100 Mg PO BID 10/11/13 Reported Ativan (Lorazepam) 1 Mg Tab 1 Mg PO TID 10/11/13 Reported Cordarone (Amiodarone Hcl) 200 Mg Tab 200 Mg PO QAM 10/11/13 Reported Prandin (Repaglinide) 1 Mg Tab 2 Mg PO TID 10/11/13 Reported 2 pills @ Breakfast, 2 pill @ Lunch, 2 pills @ Dinner Nitrostat (Nitroglycerin) 0.4 Mg Sub 0.4 Mg UT UD PRN 03/03/13 Reported NEEDED FOR CHEST PAIN : ONE TABLET UNDER THE TONGUE EVERY 5 MINUTES UP TO 3 DOSES. Vital Signs Weight (Kilograms): 93.18 Height (Feet): 6 Height (Inches): 0 Date Time Temp Pulse Resp B/P (MAP) Pulse Ox O2 Delivery O2 Flow Rate FiO2 05/28/17 15:40 36.9 60 20 143/79 (100) 95 Room Air Physical Exam General Appearance: WD/WN, no apparent distress Respiratory/Chest: Auscultation: breath sounds normal Cardiovascular: Heart Auscultation: RRR Abdomen: Bowel Sounds: normal Inspection & Palpation: soft, non-distended, no tenderness, guarding & rebound Assessment and Plan Assessment: 61 yo CM who presents for colonoscopy secondary to rectal bleeding and Iron deficiency anemia. Plan: Proceed with colonoscopy.
--- NOTE | 2017-05-28 16:48 | Anesthesiology Progress Note ---
Anesthesia Post Op Note Date & Time May 28, 2017 at 16:47 Vital Signs Pain Intensity: 0 Vital Signs Past 12 Hours Date Time Temp Pulse Resp B/P (MAP) Pulse Ox O2 Delivery O2 Flow Rate FiO2 05/28/17 16:38 56 16 107/58 (74) 100 Room Air 05/28/17 15:40 36.9 60 20 143/79 (100) 95 Room Air Notes Mental Status: alert / awake / arousable, participated in evaluation Pt Amnestic to Procedure: Yes Nausea / Vomiting: adequately controlled Pain: adequately controlled Airway Patency, RR, SpO2: stable & adequate BP & HR: stable & adequate Hydration State: stable & adequate Anesthetic Complications: no major complications apparent
--- NOTE | 2017-05-28 16:51 | GI REPORT ---
Procedure Date: 05/28/2017 3:51 PM Procedure: Colonoscopy Indications: Rectal bleeding, Iron deficiency anemia Medicines: Monitored Anesthesia Care Complications: No immediate complications. Estimated Blood Loss: Estimated blood loss: none. Procedure: Pre-Anesthesia Assessment: - Prior to the procedure, a History and Physical was performed, and patient medications and allergies were reviewed. The patient's tolerance of previous anesthesia was also reviewed. The risks and benefits of the procedure and the sedation options and risks were discussed with the patient. All questions were answered, and informed consent was obtained. Prior Anticoagulants: The patient has taken aspirin, last dose was 1 day prior to procedure. ASA Grade Assessment: IV - A patient with severe systemic disease that is a constant threat to life. After reviewing the risks and benefits, the patient was deemed in satisfactory condition to undergo the procedure. After I obtained informed consent, the scope was passed under direct vision. Throughout the procedure, the patient's blood pressure, pulse, and oxygen saturations were monitored continuously. The scope was introduced through the anus and advanced to the terminal ileum. The colonoscopy was performed without difficulty. The patient tolerated the procedure well. The quality of the bowel preparation was good. The terminal ileum, ileocecal valve, appendiceal orifice, and rectum were photographed. Findings: Non-bleeding internal hemorrhoids were found during retroflexion. The hemorrhoids were small. The exam was otherwise without abnormality. The perianal and digital rectal examinations were normal. Impression: - Non-bleeding internal hemorrhoids. - The examination was otherwise normal. - No specimens collected. Recommendation: - Resume previous diet. - Continue present medications. - Repeat colonoscopy in 10 years for surveillance. - Return to primary care physician as previously scheduled. Albert Correa, 05/28/2017 4:51:19 PM This report has been signed electronically. Note Initiated On: 05/28/2017 3:51 PM I attest to the content of the Intraoperative Record and orders documented therein, exceptions below
[2017-05-28 17:08] VITALS: BP 134/69; PULSE 55; O2SAT 96
--- NOTE | 2017-05-28 17:38 | Discharge Instructions ---
Endoscopy Patient Instructions Date / Procedure(s) Performed May 28, 2017. Colonoscopy Allergy Information Coded Allergies: Penicillins (Verified Allergy, Intermediate, RASH, 05/28/17) Pregabalin (Verified Allergy, Unknown, facial swelling, 05/28/17) Sitagliptin (Verified Allergy, Unknown, ., 05/28/17) Spironolactone (Verified Allergy, Unknown, UNKNOWN, 05/28/17) Citalopram (Verified Adverse Reaction, Unknown, dizziness, 05/28/17) Gabapentin (Verified Adverse Reaction, Unknown, dizziness, 05/28/17) Sertraline (Verified Adverse Reaction, Unknown, dizziness, 05/28/17) Discharge Date / Findings May 28, 2017. Internal hemorrhoids Medication Instructions Stopped Medication(s): OFF COUMADIN SINCE 04/13/17 OK to resume all medications today as prescribed Reported Home Medications Medications Dose Route/Sig Max Daily Dose Days Date Category Dose Instructions Oxcarbazepine 150 Mg Tab 150 Mg PO BID 05/25/17 Reported Lasix (Furosemide) 20 Mg Tab 20 Mg PO Q2D 05/25/17 Reported Coreg (Carvedilol) 12.5 Mg Tab 12.5 Mg PO QPM 05/25/17 Reported Lipitor (Atorvastatin Calcium) 40 Mg Tab 1 Tab PO HS 04/09/17 Reported Lupron Depot (Leuprolide Acetate) Unknown Strength Kit 1 Dose INJ UD 02/20/17 Reported Vibramycin (Doxycycline Hyclate) 100 Mg Cap 100 Mg PO BID 02/20/17 Reported Glucophage Er (Metformin HCl) 500 Mg Tab 500 Mg PO BID 02/20/17 Reported Tylenol (Acetaminophen) 500 Mg Tab 1-2 Tabs PO Q6 PRN 11/06/16 Reported Aspirin 81 (Aspirin) 81 Mg Tab 81 Mg PO QAM 11/06/16 Reported Vitamin B6 (Pyridoxine HCl) 100 Mg Tab 100 Mg PO QAM 06/04/16 Reported Entresto 24-26 mg (Sacubitril-Valsartan) 1 Tab Tab 1 Tab PO HS 06/04/16 Reported Coreg (Carvedilol) 12.5 Mg Tab 6.25 Mg PO QAM 06/04/16 Reported Vitamin D3 (Cholecalciferol) 2,000 Unit Cap 2,000 Unit PO QAM 06/04/16 Reported Requip (Ropinirole HCl) 0.25 Mg Tab 2 Tabs PO HS 07/29/15 Reported take 2 tablets Coq-10 (Coenzyme Q10 (Ubidecarenone)) 100 Mg Cap 100 Mg PO BID 10/11/13 Reported Ativan (Lorazepam) 1 Mg Tab 1 Mg PO TID 10/11/13 Reported Cordarone (Amiodarone Hcl) 200 Mg Tab 200 Mg PO QAM 10/11/13 Reported Prandin (Repaglinide) 1 Mg Tab 2 Mg PO TID 10/11/13 Reported 2 pills @ Breakfast, 2 pill @ Lunch, 2 pills @ Dinner Nitrostat (Nitroglycerin) 0.4 Mg Sub 0.4 Mg UT UD PRN 03/03/13 Reported NEEDED FOR CHEST PAIN : ONE TABLET UNDER THE TONGUE EVERY 5 MINUTES UP TO 3 DOSES. Provider Instructions Activity Restrictions - No exercising or heavy lifting for 24 hours. - Do not drink alcohol the day of the procedure. - Do not drive a car or operate machinery until the day after the procedure. - Do not make any important decisions or sign important papers in 24 hours after the procedure. Following Day: - Return to full activity which may include returning to work/school. Diet Start your diet with liquids and light foods (jello, soup, juice, toast). Then eat your usual diet if not nauseated. Treatment For Common After Affects For mild abdominal pain, bloating, or excessive gas: - Rest - Eat lightly - Lie on right side Follow-Up Information Follow-up with DR. MARSH as scheduled Anesthesia Information What You Should Know You have had a procedure that required some medicine to reduce anxiety and discomfort. This treatment is called moderate sedation. After receiving the treatment, you may be sleepy, but you will be able to breathe on your own. The effects of the treatment may last for several hours. Follow these instructions along with Activity/Diet recommendations noted above: * Do NOT do anything where dizziness or clumsiness would be dangerous. * Rest quietly at home today, then you can be up and about tomorrow. * Have a responsible person stay with you the rest of today. * You may have had an I.V. today. If so, you may take the dressing off later today. Recommendations Call your doctor if: * Trouble breathing * Continuous vomiting for more than 24 hours * Temperature above 101 degrees * Severe abdominal pain or bloating * Pain not relieved by pain medicine ordered * There is increased drainage or redness from any incision * A large amount of rectal bleeding greater than 2-3 tablespoons. (If you had a polyp/s removed or have hemorrhoids, a small amount of blood - from the rectum is to be expected.) * You have any unanswered questions or concerns. IN THE EVENT OF A SERIOUS EMERGENCY, GO TO THE NEAREST EMERGENCY ROOM Your discharge instructions were prepared by provider Albert Correa. Patient Instructions Signature Page Adriano Gaytan Patient (or Guardian) Signature/Date: I have read and understand the instructions given to me by my caregivers. Caregiver/RN/Doctor Signature/Date: The above-named patient and/or guardian has received patient instructions on this date. + Original Patient Signature Page (only) stays with chart. Please make copy for patient.
== END | disposition home or self-care (01) ==
LOC: C.GI 14:33
PROVIDERS: ATTEND Internal Medicine
DX: K64.8 Other hemorrhoids (principal); D50.9 Iron deficiency anemia, unspecified; E11.9 Type 2 diabetes mellitus without complications; I11.0 Hypertensive heart disease with heart failure; I50.9 Heart failure, unspecified; M19.90 Unspecified osteoarthritis, unspecified site; F32.9 Major depressive disorder, single episode, unspecified; F41.9 Anxiety disorder, unspecified; Z95.1 Presence of aortocoronary bypass graft; Z95.5 Presence of coronary angioplasty implant and graft; Z95.810 Presence of automatic (implantable) cardiac defibrillator; Z79.899 Other long term (current) drug therapy; I25.10 Atherosclerotic heart disease of native coronary artery without angina pectoris; C61 Malignant neoplasm of prostate

== ENCOUNTER → 2017-05-28 | Outpatient (CLI) | payer OTHER, BC ==
[~2017-05-28] MED LIST changes: -FENTANYL CITRATE INJ 50 MCG/1 ML 2 ML VIAL ONE; -LIDOCAINE HCL 2% 2 ML VIAL (20MG/ML) ONE; -MIDAZOLAM HCL 1 MG/ML 2ML VIAL ONE; -NURSING VERBAL MED ORDER ONE; -ONDANSETRON INJ 2 MG/ML 2 ML VIAL IV STA; -ONDANSETRON INJ 2 MG/ML 2 ML VIAL ONE; -PROPOFOL IV EMULSION 10 MG/ML 20 ML VIAL IV ONE
[2017-05-28 14:01] LABS: BLOOD UREA NITROGEN 18 mg/dl (7-18); GLUCOSE 90 mg/dl (70-99)
[2017-05-28 14:02] LABS: BUN/CREATININE RATIO 12.6 (10-20); CALCIUM 9.7 mg/dl (8.5-10.1); CARBON DIOXIDE 26 mmol/L (21-32); CHLORIDE 106 mmol/L (98-107); POTASSIUM 3.7 mmol/L (3.5-5.1); SODIUM 140 mmol/L (136-145)
[2017-05-28 14:06] LABS: PROSTATE SPECIFIC ANTIGEN 0.024 ng/ml (0.000-4.000)
== END | disposition home or self-care (01) ==
LOC: C.LABMFLN 07:23
PROVIDERS: ATTEND Urology
DX: E11.9 Type 2 diabetes mellitus without complications (principal); I25.10 Atherosclerotic heart disease of native coronary artery without angina pectoris; C61 Malignant neoplasm of prostate

== ENCOUNTER → 2017-07-30 | Outpatient (CLI) | payer OTHER, BC ==
[~2017-07-30] MED LIST changes: -DOXY100C2 PO; +REPA1TAB26 PO; -REPA1TAB42 PO
== END | disposition home or self-care (01) ==
LOC: C.PATHSPEC 09:56
PROVIDERS: ATTEND Family Medicine
DX: B07.9 Viral wart, unspecified (principal)

== ENCOUNTER → 2017-08-08 | Outpatient (CLI) | payer OTHER, BC ==
[2017-08-08 18:20] LABS: BASO % 0.3 %; BASO ABS # 0.02 K/uL (0-0.2); COMPLETE YES; HEMATOCRIT 38.3 % (42-52); IG% 0.3 %; LYMPH % 12.1 %; LYMPH ABS # 0.73 K/uL (1.2-3.4); MEAN CELL VOLUME 88.2 fL (80-100); MEAN CORPUSCULAR HGB CONC 33.9 g/dl (32-36); MEAN PLATELET VOLUME 10.1 fL (7.4-10.4); NEUT % 76.3 %; PLATELET COUNT 186 K/uL (130-400); RED BLOOD COUNT 4.34 M/uL (4.7-6.1); WHITE BLOOD COUNT 6.03 K/uL (4.8-10.8)
[2017-08-08 18:25] LABS: BLOOD UREA NITROGEN 28 mg/dl (7-18); BUN/CREATININE RATIO 19.5 (10-20); CALCIUM 9.3 mg/dl (8.5-10.1); CARBON DIOXIDE 27 mmol/L (21-32); CHLORIDE 101 mmol/L (98-107); CREATININE 1.43 mg/dl (0.60-1.40); GLUCOSE 270 mg/dl (70-99); POTASSIUM 4.1 mmol/L (3.5-5.1); SODIUM 134 mmol/L (136-145); URIC ACID 4.3 mg/dl (2.6-7.2)
== END | disposition home or self-care (01) ==
LOC: C.LABMFLN 15:40
PROVIDERS: ATTEND Family Medicine
DX: M79.673 Pain in unspecified foot (principal); R60.9 Edema, unspecified; I11.0 Hypertensive heart disease with heart failure

== ENCOUNTER → 2017-08-31 | Outpatient (CLI) | payer OTHER, BC ==
[~2017-08-31] MED LIST changes: +SULF800T23 PO; +WARF2.5T8 PO
[2017-08-31 18:06] LABS: BASO % 0.8 %; BASO ABS # 0.04 K/uL (0-0.2); EOS % 1.5 %; EOS ABS # 0.07 K/uL (0-0.5); HEMATOCRIT 38.5 % (42-52); HEMOGLOBIN 13.2 g/dL (14.0-18.0); IG# 0.02 K/uL (0.00-0.02); LYMPH % 18.4 %; LYMPH ABS # 0.87 K/uL (1.2-3.4); MEAN CELL VOLUME 87.3 fL (80-100); MEAN CORPUSCULAR HEMOGLOBIN 29.9 pg (25-34); MEAN CORPUSCULAR HGB CONC 34.3 g/dl (32-36); MEAN PLATELET VOLUME 10.6 fL (7.4-10.4); MONO % 13.8 %; MONO ABS # 0.65 K/uL (0.11-0.59); NEUT % 65.1 %; NEUT ABS # 3.07 K/uL (1.4-6.5); PLATELET COUNT 163 K/uL (130-400); RED CELL DISTRIBUTION WIDTH CV 14.2 % (11.5-14.5); RED CELL DISTRIBUTION WIDTH SD 45.3 fL (36.4-46.3); WHITE BLOOD COUNT 4.72 K/uL (4.8-10.8)
[2017-09-01 07:31] LABS: HEMOGLOBIN A1C 6.9 % (4.5-5.6)
== END | disposition home or self-care (01) ==
LOC: C.LABMFLN 11:36
PROVIDERS: ATTEND Family Medicine
DX: E11.621 Type 2 diabetes mellitus with foot ulcer (principal); L97.509 Non-pressure chronic ulcer of other part of unspecified foot with unspecified severity

== ENCOUNTER 2017-11-19 16:47 | Emergency (ER) | payer OTHER, BC ==
[~2017-11-19 16:47] MED LIST changes: -SULF800T23 PO; -WARF2.5T8 PO
[2017-11-19 16:48] VITALS: Ht 182.9 cm
[2017-11-19] MEDS ORDERED: SODIUM CHLORIDE 0.9% 1000ML 1,000 ML IV STA (17:37)
[2017-11-19] MEDS ORDERED: CLINDAMYCIN 600 MG/54 ML D5W IV STA (17:37)
--- NOTE | 2017-11-19 17:37 | EMERGENCY ROOM VISIT NOTE ---
History Report prepared by Troy: Denis Palomino Under the Supervision of: Dr. Chris Paul M.D. First contact with patient: 16:56 Chief Complaint: TOE PAIN, INJURY Stated Complaint: RED AND SWOLLEN LEFT TOE History of Present Illness The patient is a 62 year old male who presents to the Emergency Room with complaints of constant pain in his left great toe that he first noticed two days ago. He describes the pain as a "dull and achy" sensation that is a 2/10 in severity. The pain is worsened with palpation. The patient states that he has a history of skin infections in the toes of the right foot. His most recent episode was last January. He does follow with a software test and validation engineer and wears a special shoe on his right foot. He does have an appointment with the software test and validation engineer tomorrow. He has followed with an infectious disease specialist as well who placed him on IV- antibiotics for the right foot in the past. He denies any urinary symptoms, fevers, or dizziness. He is currently nauseous. The patient is a Type II diabetic. Source of History: patient Onset: 2 days ago Position: toe(s) (Left great toe) Quality: ache, dull, other (Swelling) Timing: constant Modifying Factors (Worsening): other (Palpation/touching the toe) Associated Symptoms: + nausea, No fevers Review of Systems See HPI for pertinent positives and negatives. A total of ten systems were reviewed and were otherwise negative. 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 (14) Toe osteomyelitis, right Surgical Problems: (1) Hx of CABG Family History FH: cancer FH: diabetes mellitus FH: heart disease FH: kidney disease Hypertension Social History Smoking Status: Never Smoker Alcohol Use: none Drug Use: none Marital Status: Housing Status: lives with family Occupation Status: disabled Current/Historical Medications Scheduled Amiodarone Hcl (Cordarone), 200 MG PO QAM Aspirin (Aspirin 81), 81 MG PO QAM Atorvastatin (Lipitor), 40 MG PO HS Carvedilol (Coreg), 6.25 MG PO QAM Carvedilol (Coreg), 12.5 MG PO QPM Cholecalciferol (Vitamin D3), 2,000 UNIT PO QAM Coenzyme Q10 (Ubidecarenone) (Coq-10), 100 MG PO BID Furosemide (Lasix), 20 MG PO DAILY Leuprolide Acetate (Lupron Depot), 1 DOSE INJ UD Lorazepam (Ativan), 1 MG PO TID Metformin Hcl Er (Glucophage Er), 500 MG PO BID Oxcarbazepine (Oxcarbazepine), 150 MG PO BID Pyridoxine (Vitamin B6), 100 MG PO QAM Repaglinide (Prandin), 2 MG PO TID Ropinirole (Requip), 2 TABS PO HS Sacubitril-Valsartan (Entresto 24-26 mg), 1 TAB PO HS Sulfamethoxazole-Trimethoprim (Bactrim Ds 800MG/160MG), 2 TAB PO BID Warfarin Sod (Jantoven), 2.5 MG PO DAILY Scheduled PRN Acetaminophen (Tylenol), 1-2 TABS PO Q6 PRN for Pain Nitroglycerin (Nitrostat), 0.4 MG UT UD PRN for Chest Pain Allergies Coded Allergies: Penicillins (Verified Allergy, Intermediate, RASH, 11/19/17) Pregabalin (Verified Allergy, Unknown, facial swelling, 11/19/17) Sitagliptin (Verified Allergy, Unknown, ., 11/19/17) Spironolactone (Verified Allergy, Unknown, UNKNOWN, 11/19/17) Citalopram (Verified Adverse Reaction, Unknown, dizziness, 11/19/17) Gabapentin (Verified Adverse Reaction, Unknown, dizziness, 11/19/17) Sertraline (Verified Adverse Reaction, Unknown, dizziness, 11/19/17) Physical Exam Vital Signs Date Time Temp Pulse Resp B/P (MAP) Pulse Ox O2 Delivery O2 Flow Rate FiO2 11/19/17 21:48 56 16 129/64 95 Room Air 11/19/17 19:47 37.2 58 18 129/69 97 Room Air 11/19/17 19:22 56 11/19/17 18:16 55 18 127/63 95 Room Air 11/19/17 16:48 36.9 55 20 117/63 94 Room Air Physical Exam GENERAL: Awake, alert, fatigued-appearing, in no distress HENT: Normocephalic, atraumatic. Dry mucous membranes . EYES: Normal conjunctiva. Sclera non-icteric. NECK: Supple. No nuchal rigidity. FROM. No JVD. RESPIRATORY: Clear to auscultation. CARDIAC: Regular rate, normal rhythm. Extremities warm and well perfused. Pulses equal. ABDOMEN: Soft, non-distended. No tenderness to palpation. No rebound or guarding. No masses. RECTAL: Deferred. MUSCULOSKELETAL: Chest examination reveals no tenderness. The back is symmetrical on inspection without obvious abnormality. There is no CVA tenderness to palpation. No joint edema. LOWER EXTREMITIES: Calves are equal size bilaterally and non-tender. No edema. The left great toe with lateral distal erythema and warmth. Profusion and motor sensory is intact. NEURO: Normal sensorium. No sensory or motor deficits noted. SKIN: No rash or jaundice noted. Medical Decision & Procedures ER Provider Diagnostic Interpretation: Radiology results as stated below per my review and radiologist interpretation: CHEST ONE VIEW PORTABLE CLINICAL HISTORY: Pain, radiating to the abdomen. COMPARISON STUDY: 02/20/2017 FINDINGS: There are postsurgical changes of a midline sternotomy. The heart remains mildly enlarged. There is a left subclavian pacer/defibrillator present. There is persistent moderate to marked elevation left hemidiaphragm. There is no failure. There is no focal pulmonary consolidation. There are no pleural effusions.[ IMPRESSION: Chronic elevation left hemidiaphragm, unchanged from the prior study. No acute findings Electronically signed by: Chi cShultz M.D. 11/19/2017 6:19 PM Dictated Date/Time: 11/19/2017 6:18 PM L FOOT MIN 3 VIEWS ROUTINE CLINICAL HISTORY: great toe phalen, r/o osseous involvement COMPARISON: None. DISCUSSION: There are vascular calcifications present. There are no fractures. There are no erosive or destructive changes. IMPRESSION: 1. No evidence of fracture 2. Vascular calcifications 3. No destructive lesions are visualized on conventional radiographic imaging Electronically signed by: Chi Schultz M.D. 11/19/2017 6:23 PM Dictated Date/Time: 11/19/2017 6:19 PM Laboratory Results 11/19/17 18:17 Red Blood Count 4.18, Mean Corpuscular Volume 84.4, Mean Corpuscular Hemoglobin 29.2, Mean Corpuscular Hemoglobin Concent 34.6, Mean Platelet Volume 9.9, Neutrophils (%) (Auto) 59.9, Lymphocytes (%) (Auto) 22.8, Monocytes (%) (Auto) 14.8, Eosinophils (%) (Auto) 1.9, Basophils (%) (Auto) 0.3, Neutrophils # (Auto ) 2.18, Lymphocytes # (Auto) 0.83, Monocytes # (Auto) 0.54, Eosinophils # (Auto ) 0.07, Basophils # (Auto) 0.01 11/19/17 18:17 Test 11/19/17 18:17 11/19/17 20:18 11/19/17 20:48 White Blood Count 3.64 K/uL (4.8-10.8) Red Blood Count 4.18 M/uL (4.7-6.1) Hemoglobin 12.2 g/dL (14.0-18.0) Hematocrit 35.3 % (42-52) Mean Corpuscular Volume 84.4 fL (80-100) Mean Corpuscular Hemoglobin 29.2 pg (25-34) Mean Corpuscular Hemoglobin Concent 34.6 g/dl (32-36) Platelet Count 136 K/uL (130-400) Mean Platelet Volume 9.9 fL (7.4-10.4) Neutrophils (%) (Auto) 59.9 % Lymphocytes (%) (Auto) 22.8 % Monocytes (%) (Auto) 14.8 % Eosinophils (%) (Auto) 1.9 % Basophils (%) (Auto) 0.3 % Neutrophils # (Auto) 2.18 K/uL (1.4-6.5) Lymphocytes # (Auto) 0.83 K/uL (1.2-3.4) Monocytes # (Auto) 0.54 K/uL (0.11-0.59) Eosinophils # (Auto) 0.07 K/uL (0-0.5) Basophils # (Auto) 0.01 K/uL (0-0.2) RDW Standard Deviation 45.8 fL (36.4-46.3) RDW Coefficient of Variation 14.7 % (11.5-14.5) Immature Granulocyte % (Auto) 0.3 % Immature Granulocyte # (Auto) 0.01 K/uL (0.00-0.02) Prothrombin Time 16.2 SECONDS (9.0-12.0) Prothromb Time International Ratio 1.6 (0.9-1.1) Anion Gap 8.0 mmol/L (3-11) Estimated GFR () 56.2 Estimated GFR (Non- 48.5 BUN/Creatinine Ratio 14.8 (10-20) Calcium Level 9.1 mg/dl (8.5-10.1) Total Bilirubin 0.5 mg/dl (0.2-1) Direct Bilirubin 0.2 mg/dl (0-0.2) Aspartate Amino Transf (AST/SGOT) 18 U/L (15-37) Alanine Aminotransferase (ALT/SGPT) 28 U/L (12-78) Alkaline Phosphatase 56 U/L (45-117) Troponin I 0.024 ng/ml (0-0.045) Total Protein 7.4 gm/dl (6.4-8.2) Albumin 3.5 gm/dl (3.4-5.0) Lipase 222 U/L (73-393) Influenza Type A Antigen Neg for Influ A (NEG) Influenza Type B Antigen Neg for Influ B (NEG) Urine Color YELLOW Urine Appearance CLEAR (CLEAR) Urine pH 5.5 (4.5-7.5) Urine Specific [place] 1.011 (1.000-1.030) Urine Protein NEG (NEG) Urine Glucose (UA) NEG (NEG) Urine Ketones NEG (NEG) Urine Occult Blood TRACE (NEG) Urine Nitrite NEG (NEG) Urine Bilirubin NEG (NEG) Urine Urobilinogen NEG (NEG) Urine Leukocyte Esterase NEG (NEG) Urine WBC (Auto) 1-5 /hpf (0-5) Urine RBC (Auto) 0-4 /hpf (0-4) Urine Hyaline Casts (Auto) 0 /lpf (0-5) Urine Epithelial Cells (Auto) 0-5 /lpf (0-5) Urine Bacteria (Auto) NEG (NEG) Laboratory results reviewed by me Medications Administered Medications (Trade) Dose Ordered Sig/Donato Route Start Time Stop Time Status Last Admin Dose Admin Sodium Chloride 1,000 ml @ 999 mls/hr Q1H1M STAT IV 11/19/17 17:37 11/19/17 18:37 DC 11/19/17 17:37 999 MLS/HR Clindamycin Phosphate (Cleocin 600mg/ 54ml D5W) 600 mg ONE STAT IV 11/19/17 17:37 11/19/17 17:41 DC 11/19/17 18:53 600 MG Ondansetron HCl (Zofran Inj) 4 mg NOW STAT IV 11/19/17 20:04 11/19/17 20:07 DC 11/19/17 20:14 4 MG Famotidine (Pepcid Tab) 20 mg NOW ONCE PO 11/19/17 20:15 11/19/17 20:16 DC 11/19/17 20:15 20 MG Trimethoprim/ Sulfamethoxazole (Sulfameth/ Trimeth Ds 800/ 160MG Home Pack) 1 homepack UD STAT PO 11/19/17 21:31 11/19/17 21:33 DC 11/19/17 21:57 1 HOMEPACK Warfarin Sodium (Coumadin Tab) 5 mg NOW ONCE PO 11/19/17 21:45 11/19/17 21:46 DC 11/19/17 21:56 5 MG Procedure Incision & Drainage Indication: Abscess. Location: left great toe Verbal consent was obtained after the risks and benefits were explained, including but not limited to bleeding, scarring, infection, pain, and bone/joint /nerve damage. At this time, the risks of the procedure are less than the risks of NOT performing the procedure. A time out was taken and the correct patient and site identified. The skin was prepped with betadine and a sterile field set. The abscess cavity was entered with a number 11 blade and purulent material expressed. Detailed wound care instructions and signs and symptoms of worsening infection reviewed with the patient. No complications and the patient tolerated the procedure well. ECG Per My Interpretation Indication: weakness Rate (beats per minute): 56 Rhythm: sinus bradycardia Findings: 1st degree AV block, nonspecific-ST abn (Lateral), other (QRS widening with left ventricular hypertrophy) Comparison ECG Date: 04/12/2017 Change: no significant change ED Course 1728: The patient was evaluated in room A9B. A complete history and physical exam was performed. 1737: Ordered Clindamycin 600 mg IV, Sodium Chloride 1000 mL @ 999 mL/hr IV. Medical Decision I reviewed the patient's past medical history, medications, and the nursing notes as described above. Differential diagnosis: Etiologies such as cellulitis, phalen, paronychia, osteomyelitis, abscess, MRSA infection, DVT, necrotizing fasciitis, dermatitis, drug eruption, as well as others were entertained. The patient is a 62-year-old gentleman with a past medical history of insulin- dependent diabetes, peripheral peripheral neuropathy with recurrent pedal infections followed by Dr. Aldridge infectious disease who presents emergency department with redness and pain to his left great toe setting of generalized weakness and chills per hpi. Arrival the patient is fatigued appearing but no acute distress, afebrile with stable vital signs. He appears clinically dry. His left great toe demonstrates some mild erythema and warmth to the lateral aspect of the left great toe adjacent to the nail bed. EKG similar to prior without evidence of acute ischemia. Labs WBC of 3.6, creatinine is 1.5 near baseline, troponin negative. Chest x-ray negative for pneumonia. Patient was given IV fluid hydration as well as IV clindamycin for diabetic infection. I&D was successfully performed of left great toe paronychia. However, on reevaluation the patient reports feeling worse than when he arrived with generalized weakness, nausea, and chills. While workup is otherwise reassuring given the patient is now exhibiting worsening infectious symptoms in the setting of his paronychia/cellulitis in the setting of his diabetes is reasonable to consider admission. Case was d/w [facility] admitting resident who will evaluate the patient for possible admission. Upon evaluation by admitting team the patient reports improvement and after further discussion was agreeable with plan for outpatient management and follow- up as scheduled with podiatry tomorrow. Admitting team recommending discharge on oral Bactrim. The patient received IV dose of clindamycin this evening will have first dose tomorrow with home pack. INR was subtherapeutic 1.6 and so we will give double dose of 5 mg in the ED tonight. He will follow-up with his coagulation clinic for further directions. Findings and plan for follow-up reviewed with patient. Patient agreeable and d/c'd per discharge instructions. Impression Primary Impression: Paronychia of great toe of left foot Additional Impression: Cellulitis of great toe, left Scribe Attestation The scribe's documentation has been prepared under my direction and personally reviewed by me in its entirety. I confirm that the note above accurately reflects all work, treatment, procedures, and medical decision making performed by me. Departure Information Dispostion Home / Self-Care Prescriptions Sulfamethoxazole-Trimethoprim (Bactrim Ds 800MG/160MG) 1 Tab Tab 2 TAB PO BID for 10 Days, #40 TAB Prov: Chris Paul M.D. 11/19/17 Referrals Dixon Junior M.D. (PCP) Patient Instructions Diabetic Foot Ulcer Dc, ED Foot Care Diabetic, ED Paronychia , [facility] Additional Instructions Please follow up with your primary care physician and software test and validation engineer tomorrow as scheduled for re-evaluation. You were found to have a toe infection that was successfully drained. Otherwise, your exam, EKG, chest xray, and lab results did not show signs of an emergent condition at this time. Your INR was also low and so you should contact your coagulation clinic for a recheck and further instructions. Acetaminophen for pain and fevers as needed. Bactrim as directed. Drink plenty of fluids to ensure hydration. Return to the emergency department for worsening symptoms as described in the accompanying instructions. Problem Qualifiers
[2017-11-19] MEDS ORDERED: WARF2.5T8 PO (18:10)
--- NOTE | 2017-11-19 18:21 | DIAGNOSTIC IMAGING REPORT ---
CHEST ONE VIEW PORTABLE CLINICAL HISTORY: Pain, radiating to the abdomen. COMPARISON STUDY: 02/20/2017 FINDINGS: There are postsurgical changes of a midline sternotomy. The heart remains mildly enlarged. There is a left subclavian pacer/defibrillator present. There is persistent moderate to marked elevation left hemidiaphragm. There is no failure. There is no focal pulmonary consolidation. There are no pleural effusions.[ IMPRESSION: Chronic elevation left hemidiaphragm, unchanged from the prior study. No acute findings Electronically signed by: Chi Schultz M.D. 11/19/2017 6:19 PM Dictated Date/Time: 11/19/2017 6:18 PM
--- NOTE | 2017-11-19 18:25 | DIAGNOSTIC IMAGING REPORT ---
L FOOT MIN 3 VIEWS ROUTINE CLINICAL HISTORY: great toe phalen, r/o osseous involvement COMPARISON: None. DISCUSSION: There are vascular calcifications present. There are no fractures. There are no erosive or destructive changes. IMPRESSION: 1. No evidence of fracture 2. Vascular calcifications 3. No destructive lesions are visualized on conventional radiographic imaging Electronically signed by: Chi Schultz M.D. 11/19/2017 6:23 PM Dictated Date/Time: 11/19/2017 6:19 PM
[2017-11-19 18:26] LABS: BASO % 0.3 %; BASO ABS # 0.01 K/uL (0-0.2); EOS % 1.9 %; EOS ABS # 0.07 K/uL (0-0.5); HEMATOCRIT 35.3 % (42-52); HEMOGLOBIN 12.2 g/dL (14.0-18.0); IG# 0.01 K/uL (0.00-0.02); LYMPH % 22.8 %; LYMPH ABS # 0.83 K/uL (1.2-3.4); MEAN CELL VOLUME 84.4 fL (80-100); MEAN CORPUSCULAR HEMOGLOBIN 29.2 pg (25-34); MEAN CORPUSCULAR HGB CONC 34.6 g/dl (32-36); MEAN PLATELET VOLUME 9.9 fL (7.4-10.4); MONO % 14.8 %; MONO ABS # 0.54 K/uL (0.11-0.59); NEUT % 59.9 %; NEUT ABS # 2.18 K/uL (1.4-6.5); PLATELET COUNT 136 K/uL (130-400); RED CELL DISTRIBUTION WIDTH CV 14.7 % (11.5-14.5); RED CELL DISTRIBUTION WIDTH SD 45.8 fL (36.4-46.3); WHITE BLOOD COUNT 3.64 K/uL (4.8-10.8)
[2017-11-19 18:43] LABS: ALBUMIN 3.5 gm/dl (3.4-5.0); ALT/SGPT 28 U/L (12-78); AST/SGOT 18 U/L (15-37); BLOOD UREA NITROGEN 22 mg/dl (7-18); CALCIUM 9.1 mg/dl (8.5-10.1); CARBON DIOXIDE 23 mmol/L (21-32); CREATININE 1.51 mg/dl (0.60-1.40); GLUCOSE 77 mg/dl (70-99); LIPASE 222 U/L (73-393); POTASSIUM 3.6 mmol/L (3.5-5.1); SODIUM 138 mmol/L (136-145)
[2017-11-19 18:48] LABS: ALKALINE PHOSPHATASE 56 U/L (45-117); TOTAL PROTEIN 7.4 gm/dl (6.4-8.2)
[2017-11-19 19:47] VITALS: TEMP 37.2
[2017-11-19] MEDS ORDERED: ONDANSETRON INJ 2 MG/ML 2 ML VIAL IV STA (20:04)
[2017-11-19] MEDS ORDERED: FAMOTIDINE 20 MG TAB PO ONE (20:15)
[2017-11-19 20:26] LABS: INR 1.6 (0.9-1.1)
[2017-11-19 21:15] LABS: INFLUENZA B ANTIGEN Neg for Influ B (NEG)
--- NOTE | 2017-11-19 21:16 | Medical Consult ---
Consultation Date of Consultation: Nov 19, 2017. Attending Physician: Reason for Consultation: Evaluate for admission History of Present Illness 62 year old male with DMII and neuropathy, ASCVD with angioplasty/stent and CABG , pacemaker/implantable defibrillator, CHF, hypertension, arthritis, anxiety, depression presents with 5-6 day history of left toe swelling, with intermittent pain rated 2-3/10 in severity. No issues with ambulation. Also feeling nausea and chills, but no documented fevers. He otherwise denies headaches, CP, palpitations, dyspnea, abdominal pain, lower extremity swelling or rashes. He is tolerating diet without vomiting, ambulating without exacerbating symptoms, and voiding and stooling appropriately. ROS is unremarkable except as noted above. Past Medical/Surgical History Medical Problems: (1) Anemia Status: Acute (2) Cellulitis of fifth toe of right foot Status: Acute (3) Cellulitis of foot Status: Acute (4) Cellulitis of great toe, left Status: Acute (5) Diabetic foot ulcer Status: Acute (6) Diabetic neuropathy associated with type 2 diabetes mellitus Status: Acute (7) History of diabetic ulcer of foot Status: Acute (8) Paronychia of great toe of left foot Status: Acute (9) Rectal bleeding Status: Acute (10) Renal insufficiency Status: Acute Family History FH: cancer FH: diabetes mellitus FH: heart disease FH: kidney disease Hypertension Social History Smoking Status: Never Smoker Drug Use: none Marital Status: Housing Status: lives with family Occupation Status: disabled Allergies Coded Allergies: Penicillins (Verified Allergy, Intermediate, RASH, 11/19/17) Pregabalin (Verified Allergy, Unknown, facial swelling, 11/19/17) Sitagliptin (Verified Allergy, Unknown, ., 11/19/17) Spironolactone (Verified Allergy, Unknown, UNKNOWN, 11/19/17) Citalopram (Verified Adverse Reaction, Unknown, dizziness, 11/19/17) Gabapentin (Verified Adverse Reaction, Unknown, dizziness, 11/19/17) Sertraline (Verified Adverse Reaction, Unknown, dizziness, 11/19/17) Physical Exam Date Time Temp Pulse Resp B/P (MAP) Pulse Ox O2 Delivery O2 Flow Rate FiO2 11/19/17 19:47 37.2 58 18 129/69 97 Room Air 11/19/17 19:22 56 11/19/17 18:16 55 18 127/63 95 Room Air 11/19/17 16:48 36.9 55 20 117/63 94 Room Air General Appearance: WD/WN, no apparent distress Head: normocephalic, atraumatic Eyes: normal inspection ENT: hearing grossly normal Neck: supple Respiratory/Chest: normal breath sounds, no respiratory distress, no accessory muscle use Cardiovascular: regular rate, rhythm, normal peripheral pulses Abdomen/GI: normal bowel sounds, non tender, soft Back: no CVA tenderness Extremities/Musculoskelatal: no calf tenderness, no pedal edema Neurologic/Psych: no motor/sensory deficits, alert, normal mood/affect, oriented x 3 Skin: normal color, warm/dry, + pertinent finding (Minimal redness on lateral- distal aspect of left toe. No bleeding or drainage. Not tender to palpation.) Laboratory Results Last 24 Hours Test 11/19/17 18:17 11/19/17 20:18 11/19/17 20:48 White Blood Count 3.64 K/uL Red Blood Count 4.18 M/uL Hemoglobin 12.2 g/dL Hematocrit 35.3 % Mean Corpuscular Volume 84.4 fL Mean Corpuscular Hemoglobin 29.2 pg Mean Corpuscular Hemoglobin Concent 34.6 g/dl Platelet Count 136 K/uL Mean Platelet Volume 9.9 fL Neutrophils (%) (Auto) 59.9 % Lymphocytes (%) (Auto) 22.8 % Monocytes (%) (Auto) 14.8 % Eosinophils (%) (Auto) 1.9 % Basophils (%) (Auto) 0.3 % Neutrophils # (Auto) 2.18 K/uL Lymphocytes # (Auto) 0.83 K/uL Monocytes # (Auto) 0.54 K/uL Eosinophils # (Auto) 0.07 K/uL Basophils # (Auto) 0.01 K/uL RDW Standard Deviation 45.8 fL RDW Coefficient of Variation 14.7 % Immature Granulocyte % (Auto) 0.3 % Immature Granulocyte # (Auto) 0.01 K/uL Prothrombin Time 16.2 SECONDS Prothromb Time International Ratio 1.6 Sodium Level 138 mmol/L Potassium Level 3.6 mmol/L Chloride Level 107 mmol/L Carbon Dioxide Level 23 mmol/L Anion Gap 8.0 mmol/L Blood Urea Nitrogen 22 mg/dl Creatinine 1.51 mg/dl Estimated GFR () 56.2 Estimated GFR (Non- 48.5 BUN/Creatinine Ratio 14.8 Random Glucose 77 mg/dl Calcium Level 9.1 mg/dl Total Bilirubin 0.5 mg/dl Direct Bilirubin 0.2 mg/dl Aspartate Amino Transf (AST/SGOT) 18 U/L Alanine Aminotransferase (ALT/SGPT) 28 U/L Alkaline Phosphatase 56 U/L Troponin I 0.024 ng/ml Total Protein 7.4 gm/dl Albumin 3.5 gm/dl Lipase 222 U/L Assessment & Plan Patient is s/p I&D in the ER. His nausea has improved with ondansetron, and he has intermittent chills, although none currently. The abscess on his left toe is drained and warrants further management by advertising agent. Patient has appointment scheduled for 9am. Vitals: afebrile, no tachycardia, BP within acceptable range, saturating well on RA. Labs reveal normal CBC, BMP unremarkable, except elevated creatinine, but at patient's baseline. No elevation in calcium levels. Flu swabs negative for influenza and CXR shows no acute pathology. UA results pending. Plan: Assuming UA negative (please await these results), plans were discussed with patient and he is agreeable to further outpatient work up. He will follow with podiatry tomorrow. Would recommend discharge with short supply of ondansetron and antibiotic coverage with course of Bactrim DS. Thank you for consulting us on the care of this patient. Attending addendum: I have physically seen this patient, have supervised the medical residents activities, and agree with the H&P unless as otherwise noted. Assessment and Plan: I agree with the above. The patient does not need to be admitted to the hospital since the I&D has been performed. He will be discharged on Bactrim DS twice daily and follow-up with podiatry tomorrow morning as already arranged. Resident Tracking Resident Involvement: Resident Care Provided Care Provided: Adult ED
[2017-11-19] MEDS ORDERED: SEPTRA DS HOME PACK 1 EA VIAL PO STA (21:31)
[2017-11-19] MEDS ORDERED: SULF800T23 PO (21:35)
[2017-11-19] MEDS ORDERED: WARFARIN SOD 5 MG TAB PO ONE (21:45)
[2017-11-19 21:48] VITALS: BP 129/64; PULSE 56; O2SAT 95
== END 2017-11-19 22:05 | disposition home or self-care (01) ==
LOC: C.EDB 16:48 → C.EDA 22:05
DX: L03.032 Cellulitis of left toe (principal); I10 Essential (primary) hypertension; I25.10 Atherosclerotic heart disease of native coronary artery without angina pectoris; E11.40 Type 2 diabetes mellitus with diabetic neuropathy, unspecified; I42.9 Cardiomyopathy, unspecified; E78.5 Hyperlipidemia, unspecified; I25.2 Old myocardial infarction; Z95.1 Presence of aortocoronary bypass graft; Z80.9 Family history of malignant neoplasm, unspecified; Z83.3 Family history of diabetes mellitus; Z84.1 Family history of disorders of kidney and ureter; Z82.49 Family history of ischemic heart disease and other diseases of the circulatory system; Z79.82 Long term (current) use of aspirin; Z79.899 Other long term (current) drug therapy; Z79.84 Long term (current) use of oral hypoglycemic drugs; Z79.01 Long term (current) use of anticoagulants; Z88.0 Allergy status to penicillin; Z88.8 Allergy status to other drugs, medicaments and biological substances

== ENCOUNTER → 2017-11-19 | Outpatient (CLI) | payer OTHER, BC ==
[2017-11-19 14:10] LABS: BLOOD UREA NITROGEN 23 mg/dl (7-18); CALCIUM 9.2 mg/dl (8.5-10.1); CARBON DIOXIDE 27 mmol/L (21-32); CREATININE 1.45 mg/dl (0.60-1.40); GLUCOSE 77 mg/dl (70-99); POTASSIUM 3.9 mmol/L (3.5-5.1); SODIUM 138 mmol/L (136-145)
== END | disposition home or self-care (01) ==
LOC: C.LABMFLN 07:28
PROVIDERS: ATTEND Family Medicine
DX: E11.9 Type 2 diabetes mellitus without complications (principal); C61 Malignant neoplasm of prostate

== ENCOUNTER → 2017-11-26 | Outpatient (CLI) | payer OTHER, BC ==
[~2017-11-26] MED LIST changes: +SULF800T23 PO; +WARF2.5T8 PO
[2017-11-26 17:47] LABS: BASO % 0.4 %; BASO ABS # 0.02 K/uL (0-0.2); EOS % 0.6 %; EOS ABS # 0.03 K/uL (0-0.5); HEMATOCRIT 35.9 % (42-52); HEMOGLOBIN 12.5 g/dL (14.0-18.0); IG# 0.02 K/uL (0.00-0.02); LYMPH ABS # 0.91 K/uL (1.2-3.4); MEAN CELL VOLUME 85.5 fL (80-100); MEAN CORPUSCULAR HEMOGLOBIN 29.8 pg (25-34); MEAN CORPUSCULAR HGB CONC 34.8 g/dl (32-36); MEAN PLATELET VOLUME 10.3 fL (7.4-10.4); MONO % 13.4 %; MONO ABS # 0.72 K/uL (0.11-0.59); NEUT % 68.2 %; NEUT ABS # 3.66 K/uL (1.4-6.5); PLATELET COUNT 222 K/uL (130-400); RED CELL DISTRIBUTION WIDTH CV 14.9 % (11.5-14.5); RED CELL DISTRIBUTION WIDTH SD 46.8 fL (36.4-46.3); WHITE BLOOD COUNT 5.36 K/uL (4.8-10.8)
[2017-11-26 18:15] LABS: BLOOD UREA NITROGEN 30 mg/dl (7-18); CALCIUM 9.5 mg/dl (8.5-10.1); CARBON DIOXIDE 22 mmol/L (21-32); GLUCOSE 109 mg/dl (70-99); POTASSIUM 4.4 mmol/L (3.5-5.1); SODIUM 135 mmol/L (136-145)
== END | disposition home or self-care (01) ==
LOC: C.LABMFLN 14:13
PROVIDERS: ATTEND Family Medicine
DX: E11.9 Type 2 diabetes mellitus without complications (principal); Z79.01 Long term (current) use of anticoagulants; L03.116 Cellulitis of left lower limb

== ENCOUNTER → 2017-12-06 | Outpatient (CLI) | payer OTHER, BC ==
[~2017-12-06] MED LIST changes: -SULF800T23 PO
[2017-12-06 14:10] VITALS: BP_SYST 109; BP_SYST 91; BP_DIAS 49; BP_DIAS 68; PULSE 56; TEMP 37.2; O2SAT 97
--- NOTE | 2017-12-06 16:30 | Radiation Oncology Follow-Up ---
Radiation Oncology Follow-Up Date of Visit Dec 06, 2017. Reason For Visit Six-month follow-up Radiation Completion Date Hormonal suppression;Ext. RT 04/25/17 Diagnosis (1) Prostate cancer Status: Acute Onset Date: 10/19/2016 Location: Both lobes of the prostate Histology Subtype: Adenocarcinoma Stage: ll Permanent Comment: Rising PSA Prostate biopsy 04/13/2015 benign Continued rise in PSA trial of finasteride for 2 months Pretreatment PSA 11.1 Ultrasound-guided biopsies 10/19/2016 revealing adenocarcinoma of the prostate with a Octaviano 4+4 Biopsy stage T2c cN0 M0 Hormone suppression planned for 28 months Status post completion of radiation therapy 04/25/2017. He received 8100 cGy Last Edited By: Felicity Briseno on Dec 06, 2017 16:34 History of Present Illness Mr. Gaytan presented with multiple elevated PSAs ranging from 7.4-8.28. The patient did have a previous prostate biopsy on 04/13/2015 that was negative. The patient has been followed with Dr. Vásquez due to urinary symptoms and did have a repeat PSA on 09/07/[address] Vásquez recommended a repeat biopsy on 10/19/2016 which revealed prostate adenocarcinoma in 5/14 biopsy cores; the highest Raleigh score was 4+4=8 and there was no evidence of perineural invasion. The patient did seek out second opinion consultations at both the [facility] in [place] as well as the [facility]. The overall recommendation from [facility] was for consideration of androgen deprivation therapy with radiation therapy due to the patient's other medical comorbidities which made him a high risk candidate for surgery. The second opinion consultation from the [facility] was not available at the time of our consultation. The patient did also have staging scans including a CT of the abdomen and pelvis completed on 10/31/2016 which revealed no evidence of distant metastatic disease or pelvic lymphadenopathy. The patient also had a a bone scan completed on 10/23/2016 which showed no evidence of bony metastatic disease. The patient was seen by Dr. Juanjose Vásquez who recommended consideration of pelvic radiation therapy with androgen deprivation therapy or surgery; the patient will also see Dr. Maxime Casanova from urology to discuss the role of a robotic prostatectomy. Ultimately he made a decision to have gold fiducial markers placed as well as Space OAR. He underwent IMRT/IGRT VMAT radiation therapy. All external beam. This was completed 04/25/2017 he received 8100 cGy. Interim History He has been doing well over the past 6 months. He has had improvement in his energy levels. He continues on Lupron. He has minimal hot flashes. Hormone suppression has been recommended for a total of 28 months. He has had some issues with diarrhea. He feels that it is a side effect of Coumadin. 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 For this he uses Pepto-Bismol. He has been evaluated. He had some mild rectal bleeding this was felt to be due to hemorrhoids. He has had follow- up laboratory studies. PSA November 19, 2017 was less than 0.010. Today he gave an AUA score of 9. He completed and expanded prostate cancer index composite for clinical practice and gave a score of 0 of 12 and urinary incontinence symptoms. He gave a score of 2 of 12 and urinary irritation symptoms. He gave a score of 2 of 12 and bowel symptoms. He gave a score of 9 of 12 and sexual symptoms. He gave a score of 3 of 12 and hormonal vitality symptoms. His total was 16 of 30. He does not require any medication to help with urination. Allergies Coded Allergies: Penicillins (Verified Allergy, Intermediate, RASH, 11/19/17) Pregabalin (Verified Allergy, Unknown, facial swelling, 11/19/17) Sitagliptin (Verified Allergy, Unknown, ., 11/19/17) Spironolactone (Verified Allergy, Unknown, UNKNOWN, 11/19/17) Citalopram (Verified Adverse Reaction, Unknown, dizziness, 11/19/17) Gabapentin (Verified Adverse Reaction, Unknown, dizziness, 11/19/17) Sertraline (Verified Adverse Reaction, Unknown, dizziness, 11/19/17) Home Medications Scheduled Amiodarone Hcl (Cordarone), 200 MG PO QAM Aspirin (Aspirin 81), 81 MG PO QAM Atorvastatin (Lipitor), 40 MG PO HS Carvedilol (Coreg), 6.25 MG PO QAM Carvedilol (Coreg), 12.5 MG PO QPM Cholecalciferol (Vitamin D3), 2,000 UNIT PO QAM Coenzyme Q10 (Ubidecarenone) (Coq-10), 100 MG PO BID Furosemide (Lasix), 20 MG PO DAILY Leuprolide Acetate (Lupron Depot), 1 DOSE INJ UD Lorazepam (Ativan), 1 MG PO TID Metformin Hcl Er (Glucophage Er), 500 MG PO BID Oxcarbazepine (Oxcarbazepine), 300 MG PO HS Pyridoxine (Vitamin B6), 100 MG PO QAM Repaglinide (Prandin), 2 MG PO TID Ropinirole (Requip), 2 TABS PO HS Sacubitril-Valsartan (Entresto 24-26 mg), 1 TAB PO HS Warfarin Sod (Jantoven), 2.5 MG PO DAILY Scheduled PRN Acetaminophen (Tylenol), 1-2 TABS PO Q6 PRN for Pain Nitroglycerin (Nitrostat), 0.4 MG UT UD PRN for Chest Pain Review of Systems Gastrointestinal: Symptoms: Diarrhea GI Comments: 2-3 times/week has episodes of diarrhea;see below notations; Oral: Symptoms: No Problems Respiratory: Symptoms: WNL Urinary: Symptoms: WNL Comments: Dribbles at end of void; Skin: Symptoms: No Problems Physical Exam Vital Signs Date Time Temp Pulse Resp B/P (MAP) Pulse Ox O2 Delivery O2 Flow Rate FiO2 12/06/17 14:10 37.2 56 20 91/49 97 109/68 Fatigue: Mild General Appearance: no apparent distress Eyes: normal inspection, EOMI ENT: normal ENT inspection, hearing grossly normal Respiratory/Chest: lungs clear, no respiratory distress, no accessory muscle use Cardiovascular: regular rate, rhythm, no gallop, no murmur Abdomen: non tender, soft, no organomegaly Neurologic/Psychiatric: no motor/sensory deficits, alert, normal mood/affect Skin: warm/dry Pain Management Patient Reports Pain: No Pain Location: None Patient Preferred Pain Scale: 0 - 10 Initial Pain Intensity: 0.0 Pain Management Plan He denies pain therefore requires no pain management. Laboratory Laboratory Results: were reviewed Laboratory Comments: Reviewed in the interim history. Pathology Pathology Results: were reviewed, and pertinent findings noted in HPI Imaging Imaging Studies: not applicable Assessment & Plan Plan: The patient is also seen and examined by Dr. Vega today. We have reviewed his laboratory findings. He will continue regular follow-up with Dr. Casanova and his primary care physician. We asked him to return to our office in 1 year. He may call if he has any questions or concerns in the interim. Assessment & Plan (Attending) I agree with note created by Felicity Briseno PA-C. I reviewed the patient's chart and information with her. I have examined and evaluated the patient. I reviewed relevant clinical information and answered the patient's and/or family' s questions. 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 I spent 15 minutes reviewing information and completing this note. AK Total Time (Attending) In Follow-Up I spent 15 minutes examining and counseling the patient. STITCHER OPERATOR Copy To Dixon Junior M.D.; Juanjose Vásquez MD
== END | disposition home or self-care (01) ==
LOC: C.ONC 13:46
PROVIDERS: ATTEND Physician Assistant Medical
DX: Z08 Encounter for follow-up examination after completed treatment for malignant neoplasm (principal); Z92.3 Personal history of irradiation; Z85.46 Personal history of malignant neoplasm of prostate

== ENCOUNTER → 2017-12-12 | Outpatient (CLI) | payer OTHER, BC ==
[2017-12-12 17:50] LABS: HEMATOCRIT 35.1 % (42-52); HEMOGLOBIN 11.7 g/dL (14.0-18.0); MEAN CELL VOLUME 87.3 fL (80-100); MEAN CORPUSCULAR HEMOGLOBIN 29.1 pg (25-34); MEAN CORPUSCULAR HGB CONC 33.3 g/dl (32-36); MEAN PLATELET VOLUME 10.6 fL (7.4-10.4); PLATELET COUNT 170 K/uL (130-400); RED CELL DISTRIBUTION WIDTH CV 15.1 % (11.5-14.5); RED CELL DISTRIBUTION WIDTH SD 48.4 fL (36.4-46.3); WHITE BLOOD COUNT 4.66 K/uL (4.8-10.8)
[2017-12-12 18:02] LABS: INR 1.7 (0.9-1.1)
== END | disposition home or self-care (01) ==
LOC: C.LABMFLN 14:48
PROVIDERS: ATTEND Family Medicine
DX: R04.0 Epistaxis (principal); I10 Essential (primary) hypertension

== ENCOUNTER → 2017-12-26 | Outpatient (CLI) | payer OTHER, BC ==
[2017-12-26 18:05] LABS: BASO % 0.4 %; BASO ABS # 0.02 K/uL (0-0.2); EOS % 0.7 %; EOS ABS # 0.04 K/uL (0-0.5); HEMATOCRIT 36.4 % (42-52); HEMOGLOBIN 12.1 g/dL (14.0-18.0); IG# 0.01 K/uL (0.00-0.02); LYMPH % 13.4 %; LYMPH ABS # 0.72 K/uL (1.2-3.4); MEAN CELL VOLUME 86.9 fL (80-100); MEAN CORPUSCULAR HEMOGLOBIN 28.9 pg (25-34); MEAN CORPUSCULAR HGB CONC 33.2 g/dl (32-36); MEAN PLATELET VOLUME 10.5 fL (7.4-10.4); MONO % 10.6 %; MONO ABS # 0.57 K/uL (0.11-0.59); NEUT % 74.7 %; NEUT ABS # 4.02 K/uL (1.4-6.5); PLATELET COUNT 189 K/uL (130-400); RED CELL DISTRIBUTION WIDTH CV 14.8 % (11.5-14.5); RED CELL DISTRIBUTION WIDTH SD 47.4 fL (36.4-46.3); WHITE BLOOD COUNT 5.38 K/uL (4.8-10.8)
== END | disposition home or self-care (01) ==
LOC: C.LABMFLN 14:34
PROVIDERS: ATTEND Family Medicine
DX: E11.621 Type 2 diabetes mellitus with foot ulcer (principal); Z79.01 Long term (current) use of anticoagulants

== ENCOUNTER → 2018-01-09 | Outpatient (CLI) | payer OTHER, BC ==
[2018-01-09 17:59] LABS: INR 1.2 (0.9-1.1)
== END | disposition home or self-care (01) ==
LOC: C.LABMFLN 11:31
PROVIDERS: ATTEND Family Medicine
DX: Z79.01 Long term (current) use of anticoagulants (principal); E11.621 Type 2 diabetes mellitus with foot ulcer

== ENCOUNTER → 2018-01-10 | Outpatient (CLI) | payer OTHER, BC | END | disposition home or self-care (01) | LOC: C.RDSM 13:04 | PROVIDERS: ATTEND Podiatrist | DX: M79.672 Pain in left foot (principal); Z88.0 Allergy status to penicillin; Z88.8 Allergy status to other drugs, medicaments and biological substances ==

== ENCOUNTER → 2018-01-14 | Outpatient (CLI) | payer OTHER, BC ==
--- NOTE | 2018-01-14 16:01 | DIAGNOSTIC IMAGING REPORT ---
BILATERAL LOWER EXTREMITY ARTERIAL DOPPLER ULTRASOUND CLINICAL HISTORY: Type 2 diabetes with peripheral vascular disease. Left foot pain. COMPARISON STUDY: Bilateral lower extremity Doppler ultrasound July 10, 2014. TECHNIQUE: Grayscale and color and duplex Doppler sonography of the arterial systems of both lower extremity was performed. FINDINGS: The right to brachial index could not be obtained given noncompressibility of the vessels. The left ankle to brachial index measured 0.77 when using the posterior tibial artery. No elevated velocities were identified within either lower extremity. There was triphasic flow within the bilateral common femoral, superficial femoral and popliteal arteries. There is biphasic flow within the bilateral anterior tibial and posterior tibial arteries as well as the peroneal arteries. IMPRESSION: 1. No evidence of a hemodynamically significant stenosis within the bilateral common femoral, superficial femoral and popliteal arteries. 2. Evidence of small vessel disease with diminished left ankle to brachial index of 0.77. Electronically signed by: Checo Orta M.D. 01/14/2018 4:00 PM Dictated Date/Time: 01/14/2018 3:55 PM
--- NOTE | 2018-01-14 21:17 | DIAGNOSTIC IMAGING REPORT ---
BONE SCAN 3PHASE WHOLE BODY CLINICAL HISTORY: 62 years-old Male presenting with TYPE 2 D,LT FOOT PAIN,PERIPHERAL VASCULAR DISEASE, history of prostate cancer, left first toe ulcer for 3 weeks. TECHNIQUE: Following the IV administration of 27.5 mCi of technetium 99m MDP, three-phase bone scan of the feet was performed. Anterior flow images as well as anterior and posterior blood pool phase images were acquired. Bone phase imaging of whole body was performed at three hours in multiple obliquities. COMPARISON: 06/30/2017 and radiographs of the left foot from 01/10/2018. FINDINGS: On initial flow imaging, hyperemia in the region of the first left toe. Radiotracer evident in the bilateral vasculature. On subsequent blood pool phase imaging, hyperemia in the soft tissues of the first toe. Additionally, focal mild or radiotracer activity evident at the first right metatarsophalangeal joint and bilateral mid feet. There may be asymmetric hyperemia of the periosteum of the left lower leg. On bone phase imaging, focal radiotracer activity at the left first toe. Focal radiotracer activity at the right first metatarsophalangeal joint. Whole body imaging demonstrates no focal lesion outside of the feet. IMPRESSION: 1. No convincing evidence of metastatic disease. 2. Three-phase positive bone scan at the left first toe raises concern for osteomyelitis. 3. Hyperemia of the periosteum of the left lower leg may relate to venous stasis among other etiologies. 4. Degenerative changes at the right first metatarsophalangeal joint. The report will be called/faxed according to standard departmental protocol. Electronically signed by: Azam Parks M.D. 01/14/2018 9:16 PM Dictated Date/Time: 01/14/2018 9:11 PM
== END | disposition home or self-care (01) ==
LOC: C.NUCL 14:16
PROVIDERS: ATTEND Podiatrist
DX: E11.621 Type 2 diabetes mellitus with foot ulcer (principal); M79.672 Pain in left foot; I73.9 Peripheral vascular disease, unspecified

== ENCOUNTER → 2018-04-09 | Outpatient (CLI) | payer OTHER, BC ==
[2018-04-09 18:04] LABS: BLOOD UREA NITROGEN 12 mg/dl (7-18); CALCIUM 8.7 mg/dl (8.5-10.1); CARBON DIOXIDE 25 mmol/L (21-32); CREATININE 1.14 mg/dl (0.60-1.40); GLUCOSE 108 mg/dl (70-99); SODIUM 136 mmol/L (136-145)
== END | disposition home or self-care (01) ==
LOC: C.LABMFLN 15:15
PROVIDERS: ATTEND Family Medicine
DX: R19.7 Diarrhea, unspecified (principal); E87.6 Hypokalemia

== ENCOUNTER → 2018-04-09 | Outpatient (CLI) | payer OTHER, BC | END | disposition home or self-care (01) | LOC: C.LABMFLN 07:10 | PROVIDERS: ATTEND Family Medicine | DX: K52.9 Noninfective gastroenteritis and colitis, unspecified (principal) ==

== ENCOUNTER 2019-01-11 19:21 | Inpatient (IN) ==
[2019-01-11 20:27] LABS: Basophils # (auto) 0.01 K/uL (0-0.2); Basophils % (auto) 0.2 %; Eosinophils # (auto) 0.05 K/uL (0-0.5); Eosinophils % (auto) 0.9 %; Hematocrit (blood only) 32.8 % (42-52); Hemoglobin 11.1 g/dL (14.0-18.0); Immature Granulocytes # (auto) 0.01 K/uL (0.00-0.02); Immature Granulocytes % (auto) 0.2 %; Lymphocytes # (auto) 0.92 K/uL (1.2-3.4); Lymphocytes % (auto) 16.8 %; Mean Corpuscular Hgb Conc 33.8 g/dL (32-36); Mean Corpuscular Volume 85.4 fL (80-100); Mean Platelet Volume 10.3 fL (7.4-10.4); Monocytes # (auto) 0.44 K/uL (0.11-0.59); Monocytes % (auto) 8.1 %; Neutrophils # (auto) 4.03 K/uL (1.4-6.5); Neutrophils % (auto) 73.8 %; Platelet Count 159 K/uL (130-400); RDW Coefficient of Variation 14.8 % (11.5-14.5); RDW Standard Deviation 46.4 fL (36.4-46.3); Red Blood Count 3.84 M/uL (4.7-6.1); White Blood Count 5.46 K/uL (4.8-10.8)
[2019-01-11 20:38] LABS: Partial Thromboplastin Ratio 1.3; Partial Thromboplastin Time 34.4 Seconds (21.0-31.0); Prothrombin Time 28.7 Seconds (9.0-12.0)
[2019-01-11 20:44] LABS: Alanine Aminotransferase 19 U/L (12-78); Albumin Level 3.4 gm/dl (3.4-5.0); Aspartate Aminotransferase 15 U/L (15-37); BUN Creatinine Ratio 15.3 (10-20); Blood Urea Nitrogen 19 mg/dl (7-18); C Reactive Protein < 0.29 mg/dl (0-0.29); Calcium 8.9 mg/dl (8.5-10.1); Carbon Dioxide 25 mmol/L (21-32); Chloride 110 mmol/L (98-107); Creatinine Clr Calc Pharmacy 66.1 ml/min; Est GFR (African American) 70.8; Est GFR (Non-African American) 61.1; Glucose 120 mg/dl (70-99); Magnesium 2.2 mg/dl (1.8-2.4); Potassium 3.5 mmol/L (3.5-5.1); Sodium 140 mmol/L (136-145)
[2019-01-11 20:47] LABS: Albumin Globulin Ratio 0.9 (0.9-2); Alkaline Phosphatase 73 U/L (45-117); Bilirubin,Total 0.5 mg/dl (0.2-1); Globulin 3.6 gm/dl (2.5-4.0)
--- NOTE | 2019-01-11 21:18 | XRay Report ---
XR chest 1V portable CLINICAL HISTORY: Sepsis dyspnea COMPARISON STUDY: 01/04/2019 FINDINGS: Chronic elevation left hemidiaphragm. Slight increase in prominence of pulmonary vasculatur e. No well-defined focal infiltrate. Bipolar cardiac pacemaker. IMPRESSION: Pulmonary vascular congestion. No evidence for focal infiltrate. The above report was generated using voice recognition software. It may contain grammatical, syntax or spelling errors. Electronically signed by: Pb Napier M.D. 01/11/2019 9:17 PM
--- NOTE | 2019-01-11 21:19 | XRay Report ---
XR foot RT min 3V routine CLINICAL HISTORY: 4th toe infection COMPARISON: None. DISCUSSION: Soft tissue edematous change in the region of the third and fourth phalanges of the third and fourth toes. No well-defined bony destructive process. Old erosive changes distal first of the phalanges of the first second and third toes. This is conside red nonacute. IMPRESSION: Moderate edematous change. Chronic bony change throughout as described. No evidence for a n acute destructive bony process or osteomyelitis. The above report was generated using voice recognition software. It may contain grammatical, syntax or spelling errors. Electronically signed by: Pb Napier M.D. 01/11/2019 9:18 PM
[2019-01-11] MEDS ORDERED: ONDANSETRON INJ 2 MG/ML 2 ML VIAL IV STA (21:55)
[2019-01-11] MEDS ORDERED: DAPTOmycin 300 MG in SYRINGE 0 ML IV ONE (23:19)
--- NOTE | 2019-01-12 00:20 | Emergency Department Note ---
Entered by Rita Ramirez acting as a scribe for Rashawn Guajardo DO History of Present Illness General Chief complaint: Infection, Wound Stated complaint: INFECTION IN R 4TH TOE - REF BY DR. SOOD Source: patient Limitations: no limitations History of Present Illness Provider complaint: wound Onset (ago): month(s) 1 Location: foot, lower extremity and right Radiation: non-radiation Maximum Pain Intensity: 3 Associated symptoms: + denies other symptoms (pain radiating up right leg, s tomach pain ); no fever/chills, no headaches and no nausea/vomiting Treatments prior to arrival: NSAID (Tylenol) The patient is a 63 year old male who presents to the Emergency Room with compl aints of infection on his right 4th toe. The patient states that his toe has been a pink color for 1 month but states that it worsened this morning prior to arrival. The patient denies any fevers, pain up his right leg, nausea, or vomiting. The patient denies noticing any drainage coming from his toe. The patient states that he was given Dalvance 3 days prior to arrival by Dr. Aldridge- Infectious Disease but states that his toe has not gotten any better. The patient states that the last time he took Tylenol was the night prior to arrival but denies taking any today. The patient states that he has a history of diabetes, heart failure, and blood clots. The patient states that he is on Coumadin. Home Medications Home Medications Medication Instructions Recorded Confirmed Type nitroglycerin 1 tab SUBLINGUAL USEASDIRECTD PRN 03/03/13 01/11/19 History #0 amiodarone 200 mg PO DAILY #0 tab 10/11/13 01/11/19 History coenzyme Q10 100 mg PO BID #0 10/11/13 01/11/19 History lorazepam [Ativan] 1 mg PO TID #0 tab 10/11/13 01/11/19 History repaglinide [Prandin] 2 mg PO TID #0 10/11/13 01/11/19 History carvedilol [Coreg] 6.25 mg PO QAM #0 06/04/16 01/11/19 History cholecalciferol (vitamin D3) 2,000 unit PO DAILY #0 06/04/16 01/11/19 History pyridoxine (vitamin B6) 100 mg PO QAM #0 tab 06/04/16 01/11/19 History sacubitril-valsartan [Entresto] 1 tab PO QPM #0 06/04/16 01/11/19 History acetaminophen 1,000 mg PO Q6H PRN #0 tab 11/06/16 01/11/19 History aspirin 81 mg PO DAILY #0 11/06/16 01/11/19 History atorvastatin 40 mg PO HS #0 tab 04/09/17 01/11/19 History carvedilol [Coreg] 12.5 mg PO QPM #0 tab 05/25/17 01/11/19 History furosemide [Lasix] 20 mg PO QPM #0 tab 05/25/17 01/11/19 History calcium carb,cit ER 600 mg 1 tab PO DAILY tab 12/11/18 01/11/19 History calcium-vit D3 500 unit tablet,ext.release doxycycline hyclate 100 mg capsule 100 mg PO BID 12/11/18 01/11/19 History ferrous sulfate 325 mg (65 mg 325 mg PO DAILY 12/11/18 01/11/19 History iron) tablet metformin 500 mg tablet 500 mg PO DAILY #60 12/11/18 01/11/19 History ondansetron HCl 4 mg tablet 4 mg PO Q8 PRN 12/11/18 01/11/19 History tramadol 50 mg tablet 50 mg PO Q8H PRN 12/11/18 01/11/19 History warfarin 2.5 mg tablet 3.75 mg PO DAILY #0 tab 12/11/18 01/11/19 History eplerenone 25 mg PO QPM 01/07/19 01/11/19 History dalbavancin [Dalvance] 0 mg IV UD 01/11/19 01/11/19 History Allergies Allergy/AdvReac Type Severity Reaction Status Date / Time Penicillins Allergy Intermediate RASH Verified 01/11/19 21:31 pregabalin Allergy Unknown facial Verified 01/11/19 21:31 swelling sitagliptin Allergy Unknown . Verified 01/11/19 21:31 spironolactone Allergy Unknown UNKNOWN Verified 01/11/19 21:31 citalopram AdvReac Unknown dizziness Verified 01/11/19 21:31 gabapentin AdvReac Unknown dizziness Verified 01/11/19 21:31 sertraline AdvReac Unknown dizziness Verified 01/11/19 21:31 Past Med/Surg History Medical History Type 2 diabetes mellitus (Chronic) CAD (coronary artery disease) (Chronic) Anemia CHF (congestive heart failure) Cardiomyopathy GERD (gastroesophageal reflux disease) Hyperlipidemia Hypertension Osteomyelitis Prostate cancer Surgical History Hx of CABG (Resolved) AICD (automatic cardioverter/defibrillator) present Family History Other Colorectal cancer Coronary heart disease Diabetes Hypertension Social History Preferred Language: Kazakh Communication Ability: Effective 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 and A total of 10 systems reviewed and were otherwise negative Physical Exam Vital Signs Vital Signs - 24 hr 01/11/19 19:24 01/11/19 19:41 01/11/19 22:02 Temperature 37.1 C Temperature Source Oral Sepsis Recent Fever Within 48 Hours No Sepsis New/Unexplained Change in Mental Status No Sepsis Action Taken by Nursing No Action Required Pulse Rate 55 L Pulse Rate [Finger] 60 Pulse Rhythm [Finger] Pulse Strength [Finger] Respiratory Rate 16 17 Respiratory Effort / Characteristics Non-Labored Spontaneous Respiratory Depth Normal Respiratory Pattern Blood Pressure 136/70 Blood Pressure [Left Arm] Blood Pressure [Right Arm] 148/77 H Blood Pressure Mean 92 Blood Pressure Mean [Left Arm] Blood Pressure Mean [Right Arm] 100 Blood Pressure Position [Left Arm] Blood Pressure Position [Right Arm] Pulse Oximetry 95 95 97 Oxygen Delivery Method Room Air Room Air Room Air Oxygen Flow Rate 01/12/19 00:12 01/12/19 01:36 01/12/19 02:00 Temperature 36.9 C Temperature Source Oral Sepsis Recent Fever Within 48 Hours Sepsis New/Unexplained Change in Mental Status Sepsis Action Taken by Nursing Pulse Rate 60 Pulse Rate [Finger] 56 L 97 H Pulse Rhythm [Finger] Pulse Strength [Finger] Normal Respiratory Rate 17 17 18 Respiratory Effort / Characteristics Respiratory Depth Normal Respiratory Pattern Blood Pressure 145/81 H Blood Pressure [Left Arm] 169/71 H Blood Pressure [Right Arm] 160/76 H Blood Pressure Mean Blood Pressure Mean [Left Arm] 103 Blood Pressure Mean [Right Arm] 104 Blood Pressure Position [Left Arm] Blood Pressure Position [Right Arm] Lying Pulse Oximetry 97 95 95 Oxygen Delivery Method Room Air Room Air Nasal Cannula Oxygen Flow Rate 2 01/12/19 03:49 01/12/19 04:40 01/12/19 06:00 Temperature 36.7 C 36.7 C 36.8 C Temperature Source Oral Oral Oral Sepsis Recent Fever Within 48 Hours Sepsis New/Unexplained Change in Mental Status Sepsis Action Taken by Nursing Pulse Rate Pulse Rate [Finger] 55 L 55 L 58 L Pulse Rhythm [Finger] Regular Pulse Strength [Finger] Normal Respiratory Rate 20 16 22 Respiratory Effort / Characteristics Non-Labored Spontaneous Non-Labored Spontaneous Respiratory Depth Normal Normal Respiratory Pattern Regular Regular Blood Pressure Blood Pressure [Left Arm] 125/71 165/78 H 145/73 H Blood Pressure [Right Arm] Blood Pressure Mean Blood Pressure Mean [Left Arm] 89 107 97 Blood Pressure Mean [Right Arm] Blood Pressure Position [Left Arm] Lying Sitting Blood Pressure Position [Right Arm] Pulse Oximetry 95 95 97 Oxygen Delivery Method Room Air Room Air Oxygen Flow Rate 01/12/19 07:44 Temperature 36.6 C Temperature Source Oral Sepsis Recent Fever Within 48 Hours Sepsis New/Unexplained Change in Mental Status Sepsis Action Taken by Nursing Pulse Rate Pulse Rate [Finger] 55 L Pulse Rhythm [Finger] Pulse Strength [Finger] Respiratory Rate 18 Respiratory Effort / Characteristics Respiratory Depth Respiratory Pattern Blood Pressure Blood Pressure [Left Arm] Blood Pressure [Right Arm] 137/77 Blood Pressure Mean Blood Pressure Mean [Left Arm] Blood Pressure Mean [Right Arm] 97 Blood Pressure Position [Left Arm] Blood Pressure Position [Right Arm] Lying Pulse Oximetry 96 Oxygen Delivery Method Room Air Oxygen Flow Rate GENERAL: Patient is awake, alert, and in no acute distress.Patient is resting comfortably and showing no signs of anxiety EYES: The conjunctivae are clear. The pupils are round and reactive. EARS, NOSE, MOUTH AND THROAT: The nose is without any evidence of any deformity. Mucous membranes are moist.Tongue is midline NECK: The neck is nontender and supple. RESPIRATORY: Normal respiratory effort is noted. There is no evidence of wheezing rhonchi or rales to auscultation. CARDIOVASCULAR: Regular rate and rhythm noted. There no murmurs rubs or gallops normal S1 normal S2 GASTROINTESTINAL: The abdomen is soft. Bowel sounds are present in all quadrants. Abdomen is nontender. MUSCULOSKELETAL/EXTREMITIES: There is no evidence of gross deformity. Full range of motion is noted in the hips and shoulders. SKIN: There is pedal edema bilaterally, erythema and swelling on the 4th right toe. Eschar noted on the lateral aspect of the right 4th toe. Minimal fluctuance noted. NEUROLOGIC: Patient is awake alert and oriented x3. Course 1933: The patient was evaluated in room B2, and a complete history and physical examination were performed. 5: I checked on the patient and updated him on his results. 9: I checked on the patient and the patient states that he is uncomfortable to go home. 2337: I checked on the patient and the patient states that he would prefer to be admitted. 2237: I discussed the patient's case with Dr. Santoro [facility] Hospitalist who will evaluate the patient for further hospitalization. Consultations Consultation #1: Dr. Santoro [facility] Hospitalist Time: 22:37 Administered Medications Acetaminophen (Tylenol) 1,000 mg PO Q6H PRN PRN Reason: Pain Stop: 02/11/19 01:57 Last Admin: 01/12/19 02:56 Dose: 1,000 mg Documented by: [id number] Amiodarone HCl (Cordarone) 200 mg PO DAILY [facility] Stop: 02/11/19 08:59 Last Admin: 01/12/19 10:05 Dose: 200 mg Documented by: [id number] Aspirin (Ecotrin Ectab) 81 mg PO DAILY [facility] Stop: 02/11/19 08:59 Last Admin: 01/12/19 10:04 Dose: 81 mg Documented by: [id number] Carvedilol (Coreg) 6.25 mg PO QAM [facility] Stop: 02/11/19 08:59 Last Admin: 01/12/19 10:08 Dose: Not Given Documented by: [id number] Ferrous Sulfate (Feosol) 325 mg PO DAILY [facility] Stop: 02/11/19 08:59 Last Admin: 01/12/19 10:04 Dose: 325 mg Documented by: [id number] Ertapenem 1,000 mg/ Sodium (Chloride) 60 mls @ 100 mls/hr IV Q24H [facility]; Protocol Stop: 01/22/19 07:59 Last Admin: 01/12/19 09:00 Dose: Not Given Documented by: [id number] Insulin Aspart (Novolog Flexpen) 0 units SC ACHS [facility] Stop: 02/11/19 07:29 Last Admin: 01/12/19 13:58 Dose: Not Given Documented by: [id number] Cosigned by: [id number] Admin: 01/12/19 10:07 Dose: 3 units Documented by: [id number] Cosigned by: [id number] Lorazepam (Ativan) 1 mg PO TID [facility] Stop: 02/11/19 08:59 Last Admin: 01/12/19 14:01 Dose: 1 mg Documented by: [id number] Admin: 01/12/19 06:37 Dose: Not Given Documented by: [id number] Miscellaneous (Order Awaiting Action) 1 ea N/A QS [facility] Stop: 02/11/19 07:59 Last Admin: 01/12/19 10:08 Dose: Not Given Documented by: [id number] Multivitamins/Minerals (Caltrate Plus) 1 tab PO DAILY [facility] Stop: 02/11/19 08:59 Last Admin: 01/12/19 10:04 Dose: 1 tab Documented by: [id number] Pyridoxine HCl (Vitamin B-6) 100 mg PO QAM [facility] Stop: 02/11/19 08:59 Last Admin: 01/12/19 10:04 Dose: 100 mg Documented by: [id number] Repaglinide (Prandin) 2 mg PO TID [facility] Stop: 02/11/19 08:59 Last Admin: 01/12/19 13:57 Dose: 2 mg Documented by: [id number] Admin: 01/12/19 09:00 Dose: Not Given Documented by: [id number] Tramadol HCl (Ultram) 50 mg PO Q8H PRN PRN Reason: Pain Stop: 02/11/19 01:57 Last Admin: 01/12/19 05:27 Dose: 50 mg Documented by: [id number] Vitamin D (Vitamin D3) 2,000 units PO DAILY [facility] Stop: 02/11/19 08:59 Last Admin: 01/12/19 10:03 Dose: 2,000 units Documented by: [id number] Discontinued Medications Furosemide (Lasix) 20 mg PO NOW ONE Stop: 01/12/19 02:49 Last Admin: 01/12/19 02:53 Dose: 20 mg Documented by: [id number] Daptomycin 300 mg/ Syringe 6 mls @ 3 mls/min IV NOW ONE; Protocol Stop: 01/11/19 23:20 Last Admin: 01/11/19 23:55 Dose: 3 mls/min Documented by: [id number] Lorazepam (Ativan) 1 mg PO NOW STA Stop: 01/12/19 06:38 Last Admin: 01/12/19 06:51 Dose: 1 mg Documented by: [id number] Metformin HCl (Glucophage) 500 mg PO QDB [facility] Stop: 02/11/19 07:29 Last Admin: 01/12/19 09:00 Dose: Not Given Documented by: [id number] Ondansetron HCl (Zofran) 4 mg IV NOW STA Stop: 01/11/19 21:56 Last Admin: 01/11/19 22:02 Dose: 4 mg Documented by: [id number] Medical Decision Making Differential Diagnosis Differential diagnosis: Etiologies such as cellulitis, abscess, osteomyelitis, MRSA infection, DVT, necrotizing fasciitis, dermatitis, drug eruption, as well as others were entertained. Medical Records Attestation: I reviewed the patient's medical records. Home Medications Current Medication List: was personally reviewed by me Laboratory Data Attestation: I reviewed the patient's lab results. Result diagrams: 01/11/19 20:04 01/11/19 20:04 Lab Results 01/11/19 01/11/19 01/11/19 Range/Units 20:04 20:04 20:04 WBC 5.46 (4.8-10.8) K/uL RBC 3.84 L (4.7-6.1) M/uL Hgb 11.1 L (14.0-18.0) g/dL Hct 32.8 L (42-52) % MCV 85.4 (80-100) fL MCH 28.9 (25-34) pg MCHC 33.8 (32-36) g/dL RDW Std Deviation 46.4 H (36.4-46.3) fL RDW Coeff of Dustin 14.8 H (11.5-14.5) % Plt Count 159 (130-400) K/uL MPV 10.3 (7.4-10.4) fL Immature Gran % (Auto) 0.2 % Neut % (Auto) 73.8 % Lymph % (Auto) 16.8 % Glynn % (Auto) 8.1 % Eos % (Auto) 0.9 % Baso % (Auto) 0.2 % Immature Gran # (Auto) 0.01 (0.00-0.02) K/uL Neut # (Auto) 4.03 (1.4-6.5) K/uL Lymph # (Auto) 0.92 L (1.2-3.4) K/uL Glynn # (Auto) 0.44 (0.11-0.59) K/uL Eos # (Auto) 0.05 (0-0.5) K/uL Baso # (Auto) 0.01 (0-0.2) K/uL ESR (0-14) mm/hr PT 28.7 H (9.0-12.0) Seconds INR 3.0 H (0.9-1.1) APTT 34.4 H (21.0-31.0) Seconds PTT Ratio 1.3 Sodium 140 (136-145) mmol/L Potassium 3.5 (3.5-5.1) mmol/L Chloride 110 H (98-107) mmol/L Carbon Dioxide 25 (21-32) mmol/L Anion Gap 5.0 (3-11) BUN 19 H (7-18) mg/dl Creatinine 1.24 (0.6-1.4) mg/dl Est Cr Clr Drug Dosing 66.1 ml/min Est GFR ( Amer) 70.8 Est GFR (Non-Af Amer) 61.1 BUN/Creatinine Ratio 15.3 (10-20) Glucose 120 H (70-99) mg/dl POC Glucose (70-99) Lactate (0.4-2.0) mmol/L Calcium 8.9 (8.5-10.1) mg/dl Phosphorus 3.1 (2.5-4.9) mg/dl Magnesium 2.2 (1.8-2.4) mg/dl Total Bilirubin 0.5 (0.2-1) mg/dl AST 15 (15-37) U/L ALT 19 (12-78) U/L Alkaline Phosphatase 73 (45-117) U/L C-Reactive Protein < 0.29 (0-0.29) mg/dl Total Protein 7.0 (6.4-8.2) gm/dl Albumin 3.4 (3.4-5.0) gm/dl Globulin 3.6 (2.5-4.0) gm/dl Albumin/Globulin Ratio 0.9 (0.9-2) Procalcitonin (0-0.5) ng/ml 01/11/19 01/11/19 01/11/19 Range/Units 20:04 20:04 20:04 WBC (4.8-10.8) K/uL RBC (4.7-6.1) M/uL Hgb (14.0-18.0) g/dL Hct (42-52) % MCV (80-100) fL MCH (25-34) pg MCHC (32-36) g/dL RDW Std Deviation (36.4-46.3) fL RDW Coeff of Dustin (11.5-14.5) % Plt Count (130-400) K/uL MPV (7.4-10.4) fL Immature Gran % (Auto) % Neut % (Auto) % Lymph % (Auto) % Glynn % (Auto) % Eos % (Auto) % Baso % (Auto) % Immature Gran # (Auto) (0.00-0.02) K/uL Neut # (Auto) (1.4-6.5) K/uL Lymph # (Auto) (1.2-3.4) K/uL Glynn # (Auto) (0.11-0.59) K/uL Eos # (Auto) (0-0.5) K/uL Baso # (Auto) (0-0.2) K/uL ESR 30 H (0-14) mm/hr PT (9.0-12.0) Seconds INR (0.9-1.1) APTT (21.0-31.0) Seconds PTT Ratio Sodium (136-145) mmol/L Potassium (3.5-5.1) mmol/L Chloride (98-107) mmol/L Carbon Dioxide (21-32) mmol/L Anion Gap (3-11) BUN (7-18) mg/dl Creatinine (0.6-1.4) mg/dl Est Cr Clr Drug Dosing ml/min Est GFR ( Amer) Est GFR (Non-Af Amer) BUN/Creatinine Ratio (10-20) Glucose (70-99) mg/dl POC Glucose (70-99) Lactate 1.2 (0.4-2.0) mmol/L Calcium (8.5-10.1) mg/dl Phosphorus (2.5-4.9) mg/dl Magnesium (1.8-2.4) mg/dl Total Bilirubin (0.2-1) mg/dl AST (15-37) U/L ALT (12-78) U/L Alkaline Phosphatase (45-117) U/L C-Reactive Protein (0-0.29) mg/dl Total Protein (6.4-8.2) gm/dl Albumin (3.4-5.0) gm/dl Globulin (2.5-4.0) gm/dl Albumin/Globulin Ratio (0.9-2) Procalcitonin < 0.05 (0-0.5) ng/ml 01/12/19 01/12/19 01/12/19 Range/Units 05:45 06:37 07:30 WBC (4.8-10.8) K/uL RBC (4.7-6.1) M/uL Hgb (14.0-18.0) g/dL Hct (42-52) % MCV (80-100) fL MCH (25-34) pg MCHC (32-36) g/dL RDW Std Deviation (36.4-46.3) fL RDW Coeff of Dustin (11.5-14.5) % Plt Count (130-400) K/uL MPV (7.4-10.4) fL Immature Gran % (Auto) % Neut % (Auto) % Lymph % (Auto) % Glynn % (Auto) % Eos % (Auto) % Baso % (Auto) % Immature Gran # (Auto) (0.00-0.02) K/uL Neut # (Auto) (1.4-6.5) K/uL Lymph # (Auto) (1.2-3.4) K/uL Glynn # (Auto) (0.11-0.59) K/uL Eos # (Auto) (0-0.5) K/uL Baso # (Auto) (0-0.2) K/uL ESR (0-14) mm/hr PT 24.0 H (9.0-12.0) Seconds INR 2.5 H (0.9-1.1) APTT (21.0-31.0) Seconds PTT Ratio Sodium (136-145) mmol/L Potassium (3.5-5.1) mmol/L Chloride (98-107) mmol/L Carbon Dioxide (21-32) mmol/L Anion Gap (3-11) BUN (7-18) mg/dl Creatinine (0.6-1.4) mg/dl Est Cr Clr Drug Dosing ml/min Est GFR ( Amer) Est GFR (Non-Af Amer) BUN/Creatinine Ratio (10-20) Glucose (70-99) mg/dl POC Glucose 108 H 105 H (70-99) Lactate (0.4-2.0) mmol/L Calcium (8.5-10.1) mg/dl Phosphorus (2.5-4.9) mg/dl Magnesium (1.8-2.4) mg/dl Total Bilirubin (0.2-1) mg/dl AST (15-37) U/L ALT (12-78) U/L Alkaline Phosphatase (45-117) U/L C-Reactive Protein (0-0.29) mg/dl Total Protein (6.4-8.2) gm/dl Albumin (3.4-5.0) gm/dl Globulin (2.5-4.0) gm/dl Albumin/Globulin Ratio (0.9-2) Procalcitonin (0-0.5) ng/ml 01/12/19 01/12/19 Range/Units 10:17 11:58 WBC (4.8-10.8) K/uL RBC (4.7-6.1) M/uL Hgb (14.0-18.0) g/dL Hct (42-52) % MCV (80-100) fL MCH (25-34) pg MCHC (32-36) g/dL RDW Std Deviation (36.4-46.3) fL RDW Coeff of Dustin (11.5-14.5) % Plt Count (130-400) K/uL MPV (7.4-10.4) fL Immature Gran % (Auto) % Neut % (Auto) % Lymph % (Auto) % Glynn % (Auto) % Eos % (Auto) % Baso % (Auto) % Immature Gran # (Auto) (0.00-0.02) K/uL Neut # (Auto) (1.4-6.5) K/uL Lymph # (Auto) (1.2-3.4) K/uL Glynn # (Auto) (0.11-0.59) K/uL Eos # (Auto) (0-0.5) K/uL Baso # (Auto) (0-0.2) K/uL ESR (0-14) mm/hr PT (9.0-12.0) Seconds INR (0.9-1.1) APTT (21.0-31.0) Seconds PTT Ratio Sodium (136-145) mmol/L Potassium (3.5-5.1) mmol/L Chloride (98-107) mmol/L Carbon Dioxide (21-32) mmol/L Anion Gap (3-11) BUN (7-18) mg/dl Creatinine (0.6-1.4) mg/dl Est Cr Clr Drug Dosing ml/min Est GFR ( Amer) Est GFR (Non-Af Amer) BUN/Creatinine Ratio (10-20) Glucose (70-99) mg/dl POC Glucose 151 H 112 H (70-99) Lactate (0.4-2.0) mmol/L Calcium (8.5-10.1) mg/dl Phosphorus (2.5-4.9) mg/dl Magnesium (1.8-2.4) mg/dl Total Bilirubin (0.2-1) mg/dl AST (15-37) U/L ALT (12-78) U/L Alkaline Phosphatase (45-117) U/L C-Reactive Protein (0-0.29) mg/dl Total Protein (6.4-8.2) gm/dl Albumin (3.4-5.0) gm/dl Globulin (2.5-4.0) gm/dl Albumin/Globulin Ratio (0.9-2) Procalcitonin (0-0.5) ng/ml Imaging Data Radiologist's Impression: Radiology results as stated below per my review and the radiologist's interpretation: XR chest 1V portable CLINICAL HISTORY: Sepsis dyspnea COMPARISON STUDY: 01/04/2019 FINDINGS: Chronic elevation left hemidiaphragm. Slight increase in prominence of pulmonary vasculature. No well-defined focal infiltrate. Bipolar cardiac pacemaker. IMPRESSION: Pulmonary vascular congestion. No evidence for focal infiltrate. The above report was generated using voice recognition software. It may contain grammatical, syntax or spelling errors. Electronically signed by: Pb Napier M.D. 01/11/2019 9:17 PM XR foot RT min 3V routine CLINICAL HISTORY: 4th toe infection COMPARISON: None. DISCUSSION: Soft tissue edematous change in the region of the third and fourth phalanges of the third and fourth toes. No well-defined bony destructive process. Old erosive changes distal first of the phalanges of the first second and third toes. This is considered nonacute. IMPRESSION: Moderate edematous change. Chronic bony change throughout as described. No evidence for an acute destructive bony process or osteomyelitis. The above report was generated using voice recognition software. It may contain grammatical, syntax or spelling errors. Electronically signed by: Pb Napier M.D. 01/11/2019 9:18 PM Blood Pressure Blood Pressure Findings: Elevated blood pressure Blood Pressure Disposition: further management by hospitalist KEIRA Narrative The patient is a 63-year-old male who presented to the emergency department for an evaluation of right foot pain. The patient was started on an antibiotic by his infectious disease specialist for right foot infection. He presents back to the emergency department today because of continued swelling worsening pain and worsening redness. The patient did have the area unroofed minimally with purulent material noted. This was sent for culture. I discussed the patient's laboratory and radiographic studies with him. He does not have a fever at this time. He does not appear to have signs of systemic infection but given the patient's failure of IV antibiotic therapy he was started on IV daptomycin in the emergency department. I discussed his case with the on-call [facility] hospitalist. They have agreed to evaluate the patient in the emergency de partment for further management and disposition. Impression & Plan Cellulitis Discharge Plan Visit Data *Final* Discharge Date/Time: 01/12/19 01:36 Chief Complaint: Infection, Wound Stated Complaint: INFECTION IN R 4TH TOE - REF BY DR. SOOD ED Provider: Rashawn Guajardo Discharge Problem: Cellulitis Patient Disposition: Admitted As Inpatient Discharge Instructions Interventions: ED Discharge Assessment Last Done: 01/12/19 01:36 Discharge Problem: Cellulitis Qualifiers: Site of cellulitis: extremity Site of cellulitis of extremity: lower extremity Laterality: right Qualified Code(s): L03.115 - Cellulitis of right lower limb The scribe's documentation has been prepared under my direction and personally reviewed by me in its entirety. I confirm that the note above accurately reflects all work, treatment, procedures, and medical decision making performed by me.
--- NOTE | 2019-01-12 01:47 | History & Physical Report ---
Date of Service January 12, 2019 Assessment & Plan (1) Toe infection: Patient with chronic osteomyelitis, acute worsening with increased pain/swelling, difficulty ambulating. He is afebrile, hemodynamically stable, nontoxic in appearance. X-ray with no findings of acute osteomyelitis, no gas. He was previously on Doxycycline and Dalvance -Observation to medical floor -Follow culture results -Empiric coverage with Daptomycin -Tylenol PRN pain or fever -ID consultation in AM - appreciate assistance with this case Present on Admission?: Yes (2) CAD (coronary artery disease): Patient with CAD s/p BMS to RCA on 11/01/12 with subsequent 1V CABG (MEJIA to LAD on 11/04/12), ischemic cardiomyopathy with EF of 30-35% per echo 04/2018, history of VT s/p [employer] AICD placement in January 2013. Patient has not had any AICD discharges. No CP. No evidenc of ischemia on EKG. He is in NSR with some ectopy. -Continue Carvedilol 6.25mg po qAM and 12.5mg po qPM -Continue ASA 81 -Hold Statin while on Daptomycin -Continue Entresto (3) Cardiomyopathy: Patient with ICM, EF of 30-35%, history of VT with AICD in place. Appears euvolemic, no evidence of volume overload -Continue Lasix daily -Continue EPlerenone and Entresto -Continue Amiodarone -Continue to monitor (4) Type 2 diabetes mellitus: Well controlled, QbW0D=5.3 on 11/19. Blood sugar presently 120. -Continue Metformin -Continue Prandin -Blood sugar checks Present on Admission?: Yes (5) Anemia: H/H 11.1 and 32.8, no active bleeding -Continue Fe supplementation -Continue to monitor (6) Hyperlipidemia: Chronic. Stable -Holding statin while on Dapto (7) Hypertension: Blood pressure well controlled at present -Continue cardiac medications as above (8) CKD (chronic kidney disease): BUN and Cr near baseline -Avoid nephrotoxic agents -Renal dosing where appropriate F/E/N - Heplock. Continue PO Lasix at home dose, monitor electrolytes and replete as needed, CC/Heart healthy diet as tolerated Ppx - anticoagulated Code - Full Dispo - Observation to medical floor History of Present Illness Chief Complaint: redness and swelling of toe Primary Care Provider: Dixon Junior MD Mr. Gaytan is a 63yo C male with multiple medical comorbidities to include DM with diabetic nephropathy, foot ulcer and chronic osteomyelitis of his right 4th toe, HTN, HLP, CAD, CHF secondary to ischemic cardiomyopathy with AICD in place. Patient follows with Dr. Aldridge from [place] and was recently started on Doxycycline 100mg PO BID for cellulitis. Patient reports that his right 4th toe has been slightly red in color x 1 month. This AM his toe was more red and painful. He was having difficulty walking which prompted him to come to the ER. He denies drainage/fevers/chills/rigors/vomiting/diarrhea/constipation. He had some nausea today as well. He reports receiving Dalvance [address] Aldridge with no improvement. ER Course: Daptomycin 300mg at 23:55, Zofran Allergies Allergy/AdvReac Type Severity Reaction Status Date / Time Penicillins Allergy Intermediate RASH Verified 01/11/19 21:31 pregabalin Allergy Unknown facial Verified 01/11/19 21:31 swelling sitagliptin Allergy Unknown . Verified 01/11/19 21:31 spironolactone Allergy Unknown UNKNOWN Verified 01/11/19 21:31 citalopram AdvReac Unknown dizziness Verified 01/11/19 21:31 gabapentin AdvReac Unknown dizziness Verified 01/11/19 21:31 sertraline AdvReac Unknown dizziness Verified 01/11/19 21:31 Home Medications Home Medications Medication Instructions Recorded Confirmed Type nitroglycerin 1 tab SUBLINGUAL USEASDIRECTD PRN 03/03/13 01/11/19 History #0 amiodarone 200 mg PO DAILY #0 tab 10/11/13 01/11/19 History coenzyme Q10 100 mg PO BID #0 10/11/13 01/11/19 History lorazepam [Ativan] 1 mg PO TID #0 tab 10/11/13 01/11/19 History repaglinide [Prandin] 2 mg PO TID #0 10/11/13 01/11/19 History carvedilol [Coreg] 6.25 mg PO QAM #0 06/04/16 01/11/19 History cholecalciferol (vitamin D3) 2,000 unit PO DAILY #0 06/04/16 01/11/19 History pyridoxine (vitamin B6) 100 mg PO QAM #0 tab 06/04/16 01/11/19 History sacubitril-valsartan [Entresto] 1 tab PO QPM #0 06/04/16 01/11/19 History acetaminophen 1,000 mg PO Q6H PRN #0 tab 11/06/16 01/11/19 History aspirin 81 mg PO DAILY #0 11/06/16 01/11/19 History atorvastatin 40 mg PO HS #0 tab 04/09/17 01/11/19 History carvedilol [Coreg] 12.5 mg PO QPM #0 tab 05/25/17 01/11/19 History furosemide [Lasix] 20 mg PO QPM #0 tab 05/25/17 01/11/19 History calcium carb,cit ER 600 mg 1 tab PO DAILY tab 12/11/18 01/11/19 History calcium-vit D3 500 unit tablet,ext.release doxycycline hyclate 100 mg capsule 100 mg PO BID 12/11/18 01/11/19 History ferrous sulfate 325 mg (65 mg 325 mg PO DAILY 12/11/18 01/11/19 History iron) tablet metformin 500 mg tablet 500 mg PO DAILY #60 12/11/18 01/11/19 History ondansetron HCl 4 mg tablet 4 mg PO Q8 PRN 12/11/18 01/11/19 History tramadol 50 mg tablet 50 mg PO Q8H PRN 12/11/18 01/11/19 History warfarin 2.5 mg tablet 3.75 mg PO DAILY #0 tab 12/11/18 01/11/19 History eplerenone 25 mg PO QPM 01/07/19 01/11/19 History dalbavancin [Dalvance] 0 mg IV UD 01/11/19 01/11/19 History Past Med/Surg History Medical History Type 2 diabetes mellitus (Chronic) CAD (coronary artery disease) (Chronic) Anemia CHF (congestive heart failure) Cardiomyopathy GERD (gastroesophageal reflux disease) Hyperlipidemia Hypertension Osteomyelitis Prostate cancer Surgical History Hx of CABG (Resolved) AICD (automatic cardioverter/defibrillator) present Family History Other Colorectal cancer Coronary heart disease Diabetes Hypertension Social History Preferred Language: Upper Sorbian Beliefs That Will Affect Care: None Feels Safe at Home: Yes Smoking Status: Never smoker Hx Alcohol Use: No Hx Substance Use: No Review of Systems Review of Systems: All systems reviewed & are unremarkable except as noted in HPI & below Physical Exam Physical Exam: General: patient resting comfortably, NAD, non-toxic in appearance, AA&O x 4, flat affect Skin: warm, dry, intact, no rashes or lesions HEENT: NC/AT, irregular pupils, EOMI, anicteric sclera, conjunctiva without injection, external ear normal to inspection and nontender, nares patent, moist mucus membranes, dentition intact, no oropharyngeal lesions, neck supple, trache a midline, no LAD, no thyromegaly, no JVD Heart: +S1/S2, regular with ectopy, no m/r/g Lungs: equal air entry bilaterally, no rales/rhonchi/wheezes Abd: +BS, soft, NT/ND, no masses/organomegaly/ascites Ext: warm, 2+ pulses in UE/LE bilaterally, no clubbing/cyanosis or edema, right 4th toe red and swollen tender to touch, no bullae/crepitus or streaking, small eschar on the lateral aspect with minimal fluctuance, some warmth and redness of right foot Neuro: nonfocal, patient AA&O x 4, speech intact, no facial droop, moving all extremities on command with equal strength 5/5 Results & Data Vital Signs (Past 12 Hours) Vital Signs Temp Pulse Pulse Resp BP BP Pulse Ox 01/12/19 01:36 60 17 145/81 H 95 01/12/19 00:12 56 L 17 160/76 H 97 01/11/19 22:02 60 17 148/77 H 97 01/11/19 19:41 95 01/11/19 19:24 37.1 C 55 L 16 136/70 95 Laboratory Results Lab Results 01/11/19 01/11/19 01/11/19 Range/Units 20:04 20:04 20:04 WBC 5.46 (4.8-10.8) K/uL RBC 3.84 L (4.7-6.1) M/uL Hgb 11.1 L (14.0-18.0) g/dL Hct 32.8 L (42-52) % MCV 85.4 (80-100) fL MCH 28.9 (25-34) pg MCHC 33.8 (32-36) g/dL RDW Std Deviation 46.4 H (36.4-46.3) fL RDW Coeff of Dustin 14.8 H (11.5-14.5) % Plt Count 159 (130-400) K/uL MPV 10.3 (7.4-10.4) fL Immature Gran % (Auto) 0.2 % Neut % (Auto) 73.8 % Lymph % (Auto) 16.8 % [place] % (Auto) 8.1 % Eos % (Auto) 0.9 % Baso % (Auto) 0.2 % Immature Gran # (Auto) 0.01 (0.00-0.02) K/uL Neut # (Auto) 4.03 (1.4-6.5) K/uL Lymph # (Auto) 0.92 L (1.2-3.4) K/uL [place] # (Auto) 0.44 (0.11-0.59) K/uL Eos # (Auto) 0.05 (0-0.5) K/uL Baso # (Auto) 0.01 (0-0.2) K/uL ESR (0-14) mm/hr PT 28.7 H (9.0-12.0) Seconds INR 3.0 H (0.9-1.1) APTT 34.4 H (21.0-31.0) Seconds PTT Ratio 1.3 Sodium 140 (136-145) mmol/L Potassium 3.5 (3.5-5.1) mmol/L Chloride 110 H (98-107) mmol/L Carbon Dioxide 25 (21-32) mmol/L Anion Gap 5.0 (3-11) BUN 19 H (7-18) mg/dl Creatinine 1.24 (0.6-1.4) mg/dl Est Cr Clr Drug Dosing 66.1 ml/min Est GFR ( Amer) 70.8 Est GFR (Non-Af Amer) 61.1 BUN/Creatinine Ratio 15.3 (10-20) Glucose 120 H (70-99) mg/dl Lactate (0.4-2.0) mmol/L Calcium 8.9 (8.5-10.1) mg/dl Magnesium 2.2 (1.8-2.4) mg/dl Total Bilirubin 0.5 (0.2-1) mg/dl AST 15 (15-37) U/L ALT 19 (12-78) U/L Alkaline Phosphatase 73 (45-117) U/L C-Reactive Protein < 0.29 (0-0.29) mg/dl Total Protein 7.0 (6.4-8.2) gm/dl Albumin 3.4 (3.4-5.0) gm/dl Globulin 3.6 (2.5-4.0) gm/dl Albumin/Globulin Ratio 0.9 (0.9-2) Procalcitonin (0-0.5) ng/ml 01/11/19 01/11/19 01/11/19 Range/Units 20:04 20:04 20:04 WBC (4.8-10.8) K/uL RBC (4.7-6.1) M/uL Hgb (14.0-18.0) g/dL Hct (42-52) % MCV (80-100) fL MCH (25-34) pg MCHC (32-36) g/dL RDW Std Deviation (36.4-46.3) fL RDW Coeff of Dustin (11.5-14.5) % Plt Count (130-400) K/uL MPV (7.4-10.4) fL Immature Gran % (Auto) % Neut % (Auto) % Lymph % (Auto) % [place] % (Auto) % Eos % (Auto) % Baso % (Auto) % Immature Gran # (Auto) (0.00-0.02) K/uL Neut # (Auto) (1.4-6.5) K/uL Lymph # (Auto) (1.2-3.4) K/uL [place] # (Auto) (0.11-0.59) K/uL Eos # (Auto) (0-0.5) K/uL Baso # (Auto) (0-0.2) K/uL ESR 30 H (0-14) mm/hr PT (9.0-12.0) Seconds INR (0.9-1.1) APTT (21.0-31.0) Seconds PTT Ratio Sodium (136-145) mmol/L Potassium (3.5-5.1) mmol/L Chloride (98-107) mmol/L Carbon Dioxide (21-32) mmol/L Anion Gap (3-11) BUN (7-18) mg/dl Creatinine (0.6-1.4) mg/dl Est Cr Clr Drug Dosing ml/min Est GFR ( Amer) Est GFR (Non-Af Amer) BUN/Creatinine Ratio (10-20) Glucose (70-99) mg/dl Lactate 1.2 (0.4-2.0) mmol/L Calcium (8.5-10.1) mg/dl Magnesium (1.8-2.4) mg/dl Total Bilirubin (0.2-1) mg/dl AST (15-37) U/L ALT (12-78) U/L Alkaline Phosphatase (45-117) U/L C-Reactive Protein (0-0.29) mg/dl Total Protein (6.4-8.2) gm/dl Albumin (3.4-5.0) gm/dl Globulin (2.5-4.0) gm/dl Albumin/Globulin Ratio (0.9-2) Procalcitonin < 0.05 (0-0.5) ng/ml Diagnostic Findings R foot RT min 3V routine CLINICAL HISTORY: 4th toe infection COMPARISON: None. DISCUSSION: Soft tissue edematous change in the region of the third and fourth phalanges of the third and fourth toes. No well-defined bony destructive process. Old erosive changes distal first of the phalanges of the first second and third toes. This is considered nonacute. IMPRESSION: Moderate edematous change. Chronic bony change throughout as described. No evidence for an acute destructive bony process or osteomyelitis. The above report was generated using voice recognition software. It may contain grammatical, syntax or spelling errors. Electronically signed by: Pb Napier M.D. 01/11/2019 9:18 PM Dictated: 01/11/192116 Transcribed: 01/11/192116 XR chest 1V portable CLINICAL HISTORY: Sepsis dyspnea COMPARISON STUDY: 01/04/2019 FINDINGS: Chronic elevation left hemidiaphragm. Slight increase in prominence of pulmonary vasculature. No well-defined focal infiltrate. Bipolar cardiac pacemaker. IMPRESSION: Pulmonary vascular congestion. No evidence for focal infiltrate. The above report was generated using voice recognition software. It may contain grammatical, syntax or spelling errors. Electronically signed by: Pb Napier M.D. 01/11/2019 9:17 PM Dictated: 01/11/192115 Transcribed: 01/11/192115 ECG Additional Comments: Sinus bradycardia at 56 bpm, left axis deviation, GD=922, NMB=212, BDf=413, no acute ischemic changes Code Status & VTE Plan Code Status FULL VTE Prophylaxis Plan VTE Prophylaxis will be ordered: Yes (1) CAD (coronary artery disease) Coronary Disease-Associated Artery/Lesion type: [place] artery [place] vs. transplanted heart: [place] heart Associated angina: without angina Qualified Code(s): I25.10 - Atherosclerotic heart disease of [place] coronary artery without angina pectoris (2) Type 2 diabetes mellitus Diabetes mellitus chcf insulin use: without oil heaterman use Diabetes mellitus complication status: with neurologic complications Diabetes mellitus complication detail: with polyneuropathy Qualified Code(s): E11.42 - Type 2 diabetes mellitus with diabetic polyneuropathy (3) Anemia Anemia type: unspecified type Qualified Code(s): D64.9 - Anemia, unspecified (4) Hyperlipidemia Hyperlipidemia type: unspecified Qualified Code(s): E78.5 - Hyperlipidemia, unspecified (5) Hypertension Hypertension type: essential hypertension Qualified Code(s): I10 - Essential (primary) hypertension (6) Cardiomyopathy Cardiomyopathy type: ischemic Qualified Code(s): I25.5 - Ischemic cardiomyopathy
[2019-01-12] MEDS ORDERED: GLUCAGON FOR INJ 1 MG VIAL SQ PRN (01:58)
[2019-01-12] MEDS ORDERED: ONDANSETRON INJ 2 MG/ML 2 ML VIAL IV PRN (01:58)
[2019-01-12] MEDS ORDERED: GLUCOSE 10 TABS/TUBE PO PRN (01:58)
[2019-01-12] MEDS ORDERED: ONDANSETRON 4 MG TAB PO PRN (01:58)
[2019-01-12] MEDS ORDERED: NITROGLYCERIN SL 0.4 MG/TAB TAB SL PRN (01:58)
[2019-01-12] MEDS ORDERED: TRAMADOL HCL 50 MG TABLET PO PRN (01:58)
[2019-01-12] MEDS ORDERED: CARBOHYDRATES FOR HYPOGLYCEMIA PO PRN (01:58)
[2019-01-12] MEDS ORDERED: ACETAMINOPHEN 500 MG TAB PO PRN (01:58)
[2019-01-12] MEDS ORDERED: DEXTROSE 50% 50 ML SYRINGE IV PRN (01:58)
[2019-01-12] MEDS ORDERED: GLUCOSE 40% GEL 15 GM TUBE PO PRN (01:58)
[2019-01-12] MEDS ORDERED: FUROSEMIDE 20 MG TAB PO ONE (02:48)
[2019-01-12 03:16] LABS: Phosphorus 3.1 mg/dl (2.5-4.9)
[2019-01-12 06:36] LABS: INR 2.5 (0.9-1.1)
[2019-01-12] MEDS ORDERED: LORazepam 1 MG TAB PO STA (06:37)
[2019-01-12] MEDS: LORazepam 1 MG TAB PO SCH ×3 (06:37→20:37)
--- NOTE | 2019-01-12 07:29 | Infectious Disease Consult ---
Date of Consultation January 12, 2019 Assessment & Plan (1) Cellulitis of fourth toe, right: continue dapto, add gnr coverage as well. No osteo noted on imaging. follow culture results, currently pending. History of Present Illness Attending Physician: Cee Arellano, pt admitted for worsening pain in right 4th toe. spoke with patient yesterday afternoon, he stated increased pain with ambulation at home, and increased redness in toe. He denied fever but stated he was becoming concerned for worsening infection, ER eval suggested. In ER he was found to be afebrile, no leukocytosis, x ray negative for osteo. Placed on Dapto and admitted. continues to deny fever. States pain improved today. redness improved as well. Now states he feels anxious that he may not have worsening infection. He was recently eval ulated by Dr. Aldridge and given a one time dose of Dalvance, per chart he was then placed on doxy but he did not report this to me. He does not feel he has had improvement. No fevers at home, no open wounds, no bleeding or drainage, increased swelling noted yesterday. no new trauma to area. 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 tolerating dapto but concerned his insurance will not cover this antibiotic. no cp, sob, cough, wheeze, hook, no abd pain, no n/v/d, no gu symptoms. eating well at home. only complaint in right 4th toe when walking. wbc normal. blood and wound cultures pending. Allergies Allergy/AdvReac Type Severity Reaction Status Date / Time Penicillins Allergy Intermediate RASH Verified 01/11/19 21:31 pregabalin Allergy Unknown facial Verified 01/11/19 21:31 swelling sitagliptin Allergy Unknown . Verified 01/11/19 21:31 spironolactone Allergy Unknown UNKNOWN Verified 01/11/19 21:31 citalopram AdvReac Unknown dizziness Verified 01/11/19 21:31 gabapentin AdvReac Unknown dizziness Verified 01/11/19 21:31 sertraline AdvReac Unknown dizziness Verified 01/11/19 21:31 Home Medications Home Medications Medication Instructions Recorded Confirmed Type nitroglycerin 1 tab SUBLINGUAL USEASDIRECTD PRN 03/03/13 01/11/19 History #0 amiodarone 200 mg PO DAILY #0 tab 10/11/13 01/11/19 History coenzyme Q10 100 mg PO BID #0 10/11/13 01/11/19 History lorazepam [Ativan] 1 mg PO TID #0 tab 10/11/13 01/11/19 History repaglinide [Prandin] 2 mg PO TID #0 10/11/13 01/11/19 History carvedilol [Coreg] 6.25 mg PO QAM #0 06/04/16 01/11/19 History cholecalciferol (vitamin D3) 2,000 unit PO DAILY #0 06/04/16 01/11/19 History pyridoxine (vitamin B6) 100 mg PO QAM #0 tab 06/04/16 01/11/19 History sacubitril-valsartan [Entresto] 1 tab PO QPM #0 06/04/16 01/11/19 History acetaminophen 1,000 mg PO Q6H PRN #0 tab 11/06/16 01/11/19 History aspirin 81 mg PO DAILY #0 11/06/16 01/11/19 History atorvastatin 40 mg PO HS #0 tab 04/09/17 01/11/19 History carvedilol [Coreg] 12.5 mg PO QPM #0 tab 05/25/17 01/11/19 History furosemide [Lasix] 20 mg PO QPM #0 tab 05/25/17 01/11/19 History calcium carb,cit ER 600 mg 1 tab PO DAILY tab 12/11/18 01/11/19 History calcium-vit D3 500 unit tablet,ext.release doxycycline hyclate 100 mg capsule 100 mg PO BID 12/11/18 01/11/19 History ferrous sulfate 325 mg (65 mg 325 mg PO DAILY 12/11/18 01/11/19 History iron) tablet metformin 500 mg tablet 500 mg PO DAILY #60 12/11/18 01/11/19 History ondansetron HCl 4 mg tablet 4 mg PO Q8 PRN 12/11/18 01/11/19 History tramadol 50 mg tablet 50 mg PO Q8H PRN 12/11/18 01/11/19 History warfarin 2.5 mg tablet 3.75 mg PO DAILY #0 tab 12/11/18 01/11/19 History eplerenone 25 mg PO QPM 01/07/19 01/11/19 History dalbavancin [Dalvance] 0 mg IV UD 01/11/19 01/11/19 History Patient History Medical History Type 2 diabetes mellitus (Chronic) CAD (coronary artery disease) (Chronic) Anemia CHF (congestive heart failure) Cardiomyopathy GERD (gastroesophageal reflux disease) Hyperlipidemia Hypertension Osteomyelitis Prostate cancer Surgical History Hx of CABG (Resolved) AICD (automatic cardioverter/defibrillator) present Family History Other Colorectal cancer Coronary heart disease Diabetes Hypertension Social History Preferred Language: Serbian Communication Ability: Effective 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 Required: No Beliefs That Will Affect Care: None Current Living Situation: Spouse Feels Safe at Home: Yes Safety Concerns: Feels Safe At This Time Smoking Status: Never smoker Hx Alcohol Use: No Hx Substance Use: No Review of Systems Review of Systems: All systems reviewed & are unremarkable except as noted in HPI & below Physical Exam Constitutional: WD/WN, vitals as above Eyes: PERRL, conjunctivae normal, anicteric sclerae ENMT: external ear and nose normal, oropharynx normal Neck: normal visual inspection Respiratory: normal respiratory effort, lungs clear to auscultation Cardiovascular: RRR, no murmur, no edema Gastrointestinal (Abdomen): normal bowel sounds, soft, nontender, no hepatosplenomegaly Musculoskeletal: no cyanosis or clubbing, extremities motor strength 5/5 Skin: no rashes, warm and dry right 4th toe with min erythema, edema, non tender, scab over distal toe, no open wounds, no drainage, non tender, no extension of erythema to foot Psychiatric: A+Ox3, euthymic affect Results & Data Vital Signs (Past 12 Hours) Vital Signs Temp Pulse Pulse Resp BP BP BP 01/12/19 06:00 36.8 C 58 L 22 145/73 H 01/12/19 04:40 36.7 C 55 L 16 165/78 H 01/12/19 03:49 36.7 C 55 L 20 125/71 01/12/19 02:00 36.9 C 97 H 18 169/71 H 01/12/19 01:36 60 17 145/81 H 01/12/19 00:12 56 L 17 160/76 H 01/11/19 22:02 60 17 148/77 H 01/11/19 19:41 01/11/19 19:24 37.1 C 55 L 16 136/70 Pulse Ox 01/12/19 06:00 97 01/12/19 04:40 95 01/12/19 03:49 95 01/12/19 02:00 95 01/12/19 01:36 95 01/12/19 00:12 97 01/11/19 22:02 97 01/11/19 19:41 95 01/11/19 19:24 95
[2019-01-12] MEDS: REPAGLINIDE 1 MG TAB PO SCH ×4 (09:00→20:40)
[2019-01-12] MEDS: METFORMIN HCL 500 MG TAB PO SCH ×2 (09:00→10:04)
[2019-01-12] MEDS ORDERED: NON-FORMULARY MEDICATION (Coenzyme Q10 100 MG) PO SCH (09:00)
[2019-01-12] MEDS: ERTAPENEM SODIUM 1,000 MG in SODIUM CHLORIDE 0.9% 50 ML IV SCH ×2 (09:00→17:21)
[2019-01-12] MEDS: CHOLECALCIFEROL 1,000 UNITS TAB PO SCH (10:03)
[2019-01-12] MEDS: PYRIDOXINE HCL 50 MG TAB PO SCH (10:04)
[2019-01-12] MEDS: CALCIUM 600MG + VIT D 400 IU TAB PO SCH (10:04)
[2019-01-12] MEDS: FERROUS SULFATE 325 MG TAB PO SCH (10:04)
[2019-01-12] MEDS: ASPIRIN 81 MG ECTAB PO SCH (10:04)
[2019-01-12] MEDS: AMIODARONE 200 MG TAB PO SCH (10:05)
[2019-01-12] MEDS: INSULIN ASPART 100 UNITS/ML 3 ML PEN SC SCH ×4 (10:07→20:40)
[2019-01-12] MEDS: EPLERENONE~ORDER AWAITING ACTION SCH ×3 (10:08→23:16)
[2019-01-12] MEDS: CARVEDILOL 6.25 MG TAB PO SCH (10:08)
--- NOTE | 2019-01-12 13:26 | History & Physical Bridge Note ---
Date of Service January 12, 2019 History & Physical Bridge Note Patient seen and examined this morning. Has concerns about his abx regimen and also his DM regimen. Discussed extensively, and also discussed with Dr. Villalobos. Await culture results.
[2019-01-12] MEDS ORDERED: WARFARIN SOD 2.5 MG TAB PO SCH (16:00)
[2019-01-12] MEDS: WARFARIN SOD 1.25 MG TAB PO SCH (17:22)
[2019-01-12] MEDS: CARVEDILOL 12.5 MG TAB PO SCH (20:38)
[2019-01-12] MEDS: FUROSEMIDE 20 MG TAB PO SCH (20:38)
[2019-01-12] MEDS: SACUBITRIL-VALSARTAN 24-26 MG TAB PO SCH (20:38)
[2019-01-12] MEDS: DAPTOmycin 400 MG in SYRINGE 0 ML IV SCH (23:09)
[2019-01-13 06:51] LABS: Basophils # (auto) 0.03 K/uL (0-0.2); Basophils % (auto) 0.5 %; Eosinophils # (auto) 0.08 K/uL (0-0.5); Eosinophils % (auto) 1.3 %; Hematocrit (blood only) 35.7 % (42-52); Hemoglobin 12.5 g/dL (14.0-18.0); Immature Granulocytes # (auto) 0.02 K/uL (0.00-0.02); Immature Granulocytes % (auto) 0.3 %; Lymphocytes # (auto) 1.26 K/uL (1.2-3.4); Lymphocytes % (auto) 19.7 %; Mean Corpuscular Volume 84.4 fL (80-100); Mean Platelet Volume 10.1 fL (7.4-10.4); Monocytes # (auto) 0.72 K/uL (0.11-0.59); Monocytes % (auto) 11.3 %; Neutrophils # (auto) 4.29 K/uL (1.4-6.5); Neutrophils % (auto) 66.9 %; Platelet Count 174 K/uL (130-400); RDW Coefficient of Variation 14.7 % (11.5-14.5); RDW Standard Deviation 45.5 fL (36.4-46.3); Red Blood Count 4.23 M/uL (4.7-6.1)
[2019-01-13 07:24] LABS: BUN Creatinine Ratio 14.5 (10-20); Calcium 9.7 mg/dl (8.5-10.1); Creatinine Clr Calc Pharmacy 60.7 ml/min; Est GFR (African American) 63.9; Est GFR (Non-African American) 55.1; Potassium 3.5 mmol/L (3.5-5.1)
[2019-01-13] MEDS: ERTAPENEM SODIUM 1,000 MG in SODIUM CHLORIDE 0.9% 50 ML IV SCH (08:04)
[2019-01-13] MEDS: CARVEDILOL 6.25 MG TAB PO SCH (08:05)
[2019-01-13] MEDS: CHOLECALCIFEROL 1,000 UNITS TAB PO SCH (08:05)
[2019-01-13] MEDS: EPLERENONE~ORDER AWAITING ACTION SCH ×3 (08:05→23:25)
[2019-01-13] MEDS: AMIODARONE 200 MG TAB PO SCH (08:05)
[2019-01-13] MEDS: FERROUS SULFATE 325 MG TAB PO SCH (08:05)
[2019-01-13] MEDS: CALCIUM 600MG + VIT D 400 IU TAB PO SCH (08:05)
[2019-01-13] MEDS: ASPIRIN 81 MG ECTAB PO SCH (08:06)
[2019-01-13] MEDS: PYRIDOXINE HCL 50 MG TAB PO SCH (08:06)
[2019-01-13] MEDS: REPAGLINIDE 1 MG TAB PO SCH ×3 (08:06→20:51)
[2019-01-13] MEDS: LORazepam 1 MG TAB PO SCH ×3 (08:22→20:50)
[2019-01-13] MEDS: INSULIN ASPART 100 UNITS/ML 3 ML PEN SC SCH ×4 (08:51→20:51)
--- NOTE | 2019-01-13 10:46 | Infectious Disease Progress Nt ---
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 If no gnr, will stop ertapenem in am. Subjective pt remains on abx, tolerating well. 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 blood cultures negative. wbc 6.4 today. afebrile since admission. Results & Data Vital Signs (Past 12 Hours) Vital Signs Temp Pulse Resp BP Pulse Ox 01/13/19 07:25 36.9 C 52 L 18 148/76 H 95 01/12/19 23:03 36.6 C 56 L 18 138/76 94 Laboratory Results Microbiology 01/11/19 19:45 Foot,Right Gram Stain - Final 01/11/19 19:45 Foot,Right Aerobic and Anaerobic Culture - Preliminary Coag negative Staphylococcus 01/11/19 20:30 Blood Blood Culture - Preliminary No growth to date. 01/11/19 20:04 Blood Blood Culture - Preliminary No growth to date.
[2019-01-13] MEDS ORDERED: GADOBUTROL 65ML VIAL IV PRN (12:43)
--- NOTE | 2019-01-13 12:55 | Magnetic Resonance Report ---
MR foot RT wo/w con CLINICAL HISTORY: Right 4th toe ulcer, infection COMPARISON STUDY: X-ray dated 01/11/2019 FINDINGS: Imaging was performed in the axial, sagittal, and coronal planes, before and after the admi nistration of 10 cc of intravenous Gadavist. The study is limited from a technical standpoint secondary to motion artifact. There are volar sublux ations at the level of the second through fifth proximal to phalangeal joints. There is T1 and T2 marrow edema involving the tuft of the distal phalanx of the fourth toe consistent with osteomyelitis. There is a pencillike deformity involving the tuft of distal phalanx of the third toe, likely chronic . The distal aspect of the distal phalanx of the second toe is absent, also, likely chronic. There are no fluid collections to indicate a soft tissue abscess. IMPRESSION: 1. Moderately limited study from a technical standpoint secondary to motion artifact 2. T1 and T2 marrow edema involving the tuft of the distal phalanx of the fourth toe consistent with osteomyelitis Electronically signed by: Chi Schultz M.D. 01/13/2019 12:54 PM
--- NOTE | 2019-01-13 14:31 | Hospitalist Progress Note ---
Date of Service January 13, 2019 Assessment & Plan (1) Toe infection: Patient with chronic osteomyelitis, acute worsening with increased pain/swelling, difficulty ambulating. MRI on 01/13 showed osteomyelitis of the distal phalanx of the 4th toe. - Continue dapto & ertapenem per ID - Follow superficial wound culture done in the ED - Podiatry consulted (2) CAD (coronary artery disease): Patient with CAD s/p BMS to RCA on 11/01/12 with subsequent 1V CABG (MEJIA to LAD on 11/04/12), ischemic cardiomyopathy with EF of 30-35% per echo 04/2018, history of VT s/p Medtronic AICD placement in January 2013. Patient has not had any AICD discharges since 2012. No chest pain and no evidence of ischemia on EKG. He is in NSR with some ectopy. - Continue Carvedilol 6.25mg po qAM and 12.5mg po qPM - Continue ASA 81 - Hold statin while on Daptomycin - Continue Entresto (3) Cardiomyopathy: Patient with ICM, EF of 30-35%, history of VT with AICD in place. Appears euvolemic, no evidence of volume overload. - Continue home Lasix daily, eplerenone and Entresto, and amiodarone (4) Paroxysmal atrial fibrillation: Per an outpatient cardiology note from 08/2018, he has a "questionable" history of atrial fibrillation and is chronic anticoagulation for this. - Continue home warfarin - Monitor INR while inpatient, on 01/12, INR was 2.5. (5) Type 2 diabetes mellitus: Well controlled, HgA1C was 6.3% on 11/19. - Hold metformin - Continue Prandin - Blood sugar checks (6) Anemia: H/H 11.1 and 32.8, no active bleeding. - Continue Fe supplementation - Continue to monitor (7) Hyperlipidemia: Chronic. Stable. - Holding statin while on dapto (8) Hypertension: Blood pressure well-controlled at present. - Continue cardiac medications as above (9) CKD (chronic kidney disease): Baseline Cr is ~1.3. - As of 01/13, Cr is at baseline. - Monitor Cr (10) DVT prophylaxis: On anticoagulation Subjective Improvement of the toe. No systemic symptoms. Reports no fevers/chills, chest pain, shortness of breath, abdominal pain, nausea, or vomiting. Review of Systems Review of Systems: All systems reviewed & are unremarkable except as noted in HPI & below Physical Exam Constitutional: WD/WN, vitals as above Eyes: EOM intact bilaterally; no conjunctival abnormality ENMT: external ear and nose normal, oropharynx normal Neck: trachea midline, no thyromegaly normal visual inspection Respiratory: normal respiratory effort, lungs clear to auscultation no respiratory distress Cardiovascular: RRR, no murmur, no edema Gastrointestinal (Abdomen): Inspection/Auscultation: abdomen normal to inspection; abdomen not distended Musculoskeletal: no cyanosis or clubbing, extremities motor strength 5/5 Skin: no rashes, warm and dry Neurologic: moves all extremities and awake Psychiatric: Orientation: alert, oriented to person and cooperative Results & Data Vital Signs (Past 12 Hours) Vital Signs Temp Pulse Resp BP Pulse Ox 01/13/19 07:25 36.9 C 52 L 18 148/76 H 95 (1) CAD (coronary artery disease) Coronary Disease-Associated Artery/Lesion type: [place] artery [place] vs. transplanted heart: [place] heart Associated angina: without angina Qualified Code(s): I25.10 - Atherosclerotic heart disease of [place] coronary artery without angina pectoris (2) Cardiomyopathy Cardiomyopathy type: ischemic Qualified Code(s): I25.5 - Ischemic cardiomyopathy (3) Type 2 diabetes mellitus Diabetes mellitus jail insulin use: without long term care pharmacist use Diabetes mellitus complication status: with neurologic complications Diabetes mellitus complication detail: with polyneuropathy Qualified Code(s): E11.42 - Type 2 diabetes mellitus with diabetic polyneuropathy (4) Anemia Anemia type: unspecified type Qualified Code(s): D64.9 - Anemia, unspecified (5) Hyperlipidemia Hyperlipidemia type: unspecified Qualified Code(s): E78.5 - Hyperlipidemia, unspecified (6) Hypertension Hypertension type: essential hypertension Qualified Code(s): I10 - Essential (primary) hypertension
[2019-01-13] MEDS: WARFARIN SOD 1.25 MG TAB PO SCH (15:58)
[2019-01-13] MEDS ORDERED: Nursing to Pharmacy Communication ONE (18:41)
[2019-01-13] MEDS ORDERED: POLYETHYLENE (MIRALAX) 17 GM PACK ONE (18:44)
[2019-01-13] MEDS: CARVEDILOL 12.5 MG TAB PO SCH (20:50)
[2019-01-13] MEDS: FUROSEMIDE 20 MG TAB PO SCH (20:51)
[2019-01-13] MEDS: SACUBITRIL-VALSARTAN 24-26 MG TAB PO SCH (20:51)
[2019-01-13] MEDS: DAPTOmycin 400 MG in SYRINGE 0 ML IV SCH (23:26)
[2019-01-14 06:57] LABS: BUN Creatinine Ratio 16.7 (10-20); Calcium 9.1 mg/dl (8.5-10.1); Creatinine Clr Calc Pharmacy 60.2 ml/min; Est GFR (African American) 63.3; Est GFR (Non-African American) 54.6; Potassium 3.5 mmol/L (3.5-5.1)
[2019-01-14] MEDS: CARVEDILOL 6.25 MG TAB PO SCH (08:07)
[2019-01-14] MEDS: LORazepam 1 MG TAB PO SCH ×3 (08:07→21:46)
[2019-01-14] MEDS: REPAGLINIDE 1 MG TAB PO SCH ×3 (08:07→21:48)
[2019-01-14] MEDS: AMIODARONE 200 MG TAB PO SCH (08:08)
[2019-01-14] MEDS: CALCIUM 600MG + VIT D 400 IU TAB PO SCH (08:08)
[2019-01-14] MEDS: FERROUS SULFATE 325 MG TAB PO SCH (08:08)
[2019-01-14] MEDS: PYRIDOXINE HCL 50 MG TAB PO SCH (08:08)
[2019-01-14] MEDS: ASPIRIN 81 MG ECTAB PO SCH (08:08)
[2019-01-14] MEDS: ERTAPENEM SODIUM 1,000 MG in SODIUM CHLORIDE 0.9% 50 ML IV SCH (08:09)
[2019-01-14] MEDS: CHOLECALCIFEROL 1,000 UNITS TAB PO SCH (08:09)
[2019-01-14] MEDS ORDERED: POLYETHYLENE (MIRALAX) 17 GM PACK PO PRN (08:31)
[2019-01-14] MEDS: EPLERENONE~ORDER AWAITING ACTION SCH ×2 (08:35→16:12)
[2019-01-14] MEDS: INSULIN ASPART 100 UNITS/ML 3 ML PEN SC SCH ×4 (08:57→21:48)
--- NOTE | 2019-01-14 12:14 | Hospitalist Progress Note ---
Date of Service January 14, 2019 Assessment & Plan (1) Toe infection: Patient with chronic osteomyelitis, acute worsening with increased pain/swelling, difficulty ambulating. MRI on 01/13 showed osteomyelitis of the distal phalanx of the 4th toe. - Continue dapto & ertapenem per ID - Superficial wound culture done in the ED shows coag-negative Staph. - Podiatry consulted, but has not seen him yet. Today, he has decided to follow up with outpatient podiatry, so I will discontinue the consult. - ID recommends daptomycin IV x 6 weeks for his osteomyelitis. (2) CAD (coronary artery disease): Patient with CAD s/p BMS to RCA on 11/01/12 with subsequent 1V CABG (MEJIA to LAD on 11/04/12), ischemic cardiomyopathy with EF of 30-35% per echo 04/2018, history of VT s/p Medtronic AICD placement in January 2013. Patient has not had any AICD discharges since 2012. No chest pain and no evidence of ischemia on EKG. He is in NSR with some ectopy. - Continue Carvedilol 6.25mg po qAM and 12.5mg po qPM - Continue ASA 81 - Hold statin while on daptomycin - Continue Entresto (3) Cardiomyopathy: Chronic systolic CHF. Patient with ICM, EF of 30-35%, history of VT with AICD in place. Appears euvolemic, no evidence of volume overload. - Continue home Lasix daily, eplerenone and Entresto, and amiodarone (4) Paroxysmal atrial fibrillation: Per an outpatient cardiology note from 08/2018, he has a "questionable" history of atrial fibrillation and is on chronic anticoagulation for this. - Continue home warfarin - Monitor INR while inpatient, on 01/12, INR was 2.5. (5) Type 2 diabetes mellitus: Well controlled, HgA1C was 6.3% on 11/19. - Held metformin - Continued Prandin - Blood sugar checks (6) Anemia: H/H 11.1 and 32.8, no active bleeding. - Continue Fe supplementation - Continue to monitor (7) Hyperlipidemia: Chronic. Stable. - Holding statin while on dapto (8) Hypertension: Blood pressure well-controlled at present. - Continue cardiac medications as above (9) CKD (chronic kidney disease): Baseline Cr is ~1.3. - As of 01/14, Cr is at baseline. - Monitor Cr (10) DVT prophylaxis: On anticoagulation Subjective Feeling frustrated with slow progress. Overall, no systemic complaints. Reports no fevers/chills, chest pain, shortness of breath, abdominal pain, nausea, or vomiting. Review of Systems Review of Systems: All systems reviewed & are unremarkable except as noted in HPI & below Physical Exam Constitutional: WD/WN, vitals as above Eyes: EOM intact bilaterally; no conjunctival abnormality ENMT: external ear and nose normal, oropharynx normal Neck: trachea midline, no thyromegaly normal visual inspection Respiratory: normal respiratory effort, lungs clear to auscultation no respiratory distress Cardiovascular: RRR, no murmur, no edema Gastrointestinal (Abdomen): Inspection/Auscultation: abdomen normal to inspection; abdomen not distended Musculoskeletal: no cyanosis or clubbing, extremities motor strength 5/5 Skin: no rashes, warm and dry Neurologic: moves all extremities and awake Psychiatric: Orientation: alert, oriented to person and cooperative Results & Data Vital Signs (Past 12 Hours) Vital Signs Temp Pulse Resp BP Pulse Ox 01/14/19 08:19 36.6 C 55 L 16 122/75 96 (1) CAD (coronary artery disease) Coronary Disease-Associated Artery/Lesion type: [place] artery [place] vs. transplanted heart: [place] heart Associated angina: without angina Qualified Code(s): I25.10 - Atherosclerotic heart disease of [place] coronary artery without angina pectoris (2) Cardiomyopathy Cardiomyopathy type: ischemic Qualified Code(s): I25.5 - Ischemic cardiomyopathy (3) Type 2 diabetes mellitus Diabetes mellitus senior living insulin use: without intermediate project manager use Diabetes mellitus complication status: with neurologic complications Diabetes mellitus complication detail: with polyneuropathy Qualified Code(s): E11.42 - Type 2 diabetes mellitus with diabetic polyneuropathy (4) Anemia Anemia type: unspecified type Qualified Code(s): D64.9 - Anemia, unspecified (5) Hyperlipidemia Hyperlipidemia type: unspecified Qualified Code(s): E78.5 - Hyperlipidemia, unspecified (6) Hypertension Hypertension type: essential hypertension Qualified Code(s): I10 - Essential (primary) hypertension
--- NOTE | 2019-01-14 15:33 | Infectious Disease Progress Nt ---
Date of Service January 14, 2019 Assessment & Plan (1) Cellulitis of fourth toe, right: will stop ertapenem. discussed treatment options with patient. did check with insurance benefits, spoke with nursing, case technician, primary service. He would like to continue on Dapto, option for this would be picc line, daily infusions of Dapto at infusion center in [place] as this is closer to home, only [place] M-F, would need to come to [facility] here for weekend doses, at 8am. Explained to patient. Alternative would be Dalvance dosing as outpatient, he feels he had clinical worsening on this and does not want additional Dalvance at this time. 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 no GNR identified. he is going to check to see if he can arrange transportation to come to [facility] on week, if so he can be d/c on IV Dapto, daily at current dose x 6 weeks. will need weekly cmp,cbc,esr,cpk while on abx. Podiatry eval now scheduled by patient as oupatient for .may ultimately benefit from amp but surgery eval pending. blood cultures negative, ok for picc from ID standpoint. Discussed with primary service. can follow with Dr. Aldridge post d/c from hospital. No contraindication to d/c home from ID standpoint when outpatient abx arrangements in place. Subjective pt seen in followup. states he has scheduled podiatry visit for as outpatient. Podiatry was consulted here but he would prefer to choose his oracle pl sql developer as outpatient. MRI done 01/13- osteo noted 4th toe. Remains afebrile. remains on dapto and ertapenem, tolerating well. repeat culture done on 01/11 - DATA PROGRAMMER, no sensitivities done. blood cultures negative. ESR on 01/11 30, procalcitonin <0.05. Asking to be d/c home on IV abx - would like to continue with dapto. Had dose of Dalvance last week, is declining any further Dalvance doses at this time. no pain in foot. dressing intact, denies bleeding or drainage. no f/c. no abd pain, no n/v/d, no cp, sob, cough. all remaining ros reviewed and are negative Review of Systems Review of Systems: All systems reviewed & are unremarkable except as noted in HPI & below Physical Exam Constitutional: WD/WN, vitals as above Eyes: PERRL, conjunctivae normal, anicteric sclerae ENMT: external ear and nose normal, oropharynx normal Neck: normal visual inspection Respiratory: normal respiratory effort, lungs clear to auscultation Cardiovascular: RRR, no murmur, no edema Gastrointestinal (Abdomen): normal bowel sounds, soft, nontender, no hepatosplenomegaly Musculoskeletal: no cyanosis or clubbing, extremities motor strength 5/5 Skin: no rashes, warm and dry Psychiatric: A+Ox3, euthymic affect Results & Data Vital Signs (Past 12 Hours) Vital Signs Temp Pulse Resp BP Pulse Ox 01/14/19 08:19 36.6 C 55 L 16 122/75 96 Laboratory Results Microbiology 01/11/19 19:45 Foot,Right Gram Stain - Final 01/11/19 19:45 Foot,Right Aerobic and Anaerobic Culture - Preliminary Coag negative Staphylococcus 01/11/19 20:30 Blood Blood Culture - Preliminary No growth to date. 01/11/19 20:04 Blood Blood Culture - Preliminary No growth to date.
[2019-01-14] MEDS: WARFARIN SOD 1.25 MG TAB PO SCH (16:10)
[2019-01-14] MEDS: CARVEDILOL 12.5 MG TAB PO SCH (21:47)
[2019-01-14] MEDS: SACUBITRIL-VALSARTAN 24-26 MG TAB PO SCH (21:47)
[2019-01-14] MEDS: FUROSEMIDE 20 MG TAB PO SCH (21:48)
[2019-01-14] MEDS: DAPTOmycin 400 MG in SYRINGE 0 ML IV SCH (22:40)
[2019-01-14 23:43] VITALS: PULSE 55
[2019-01-15] MEDS: EPLERENONE~ORDER AWAITING ACTION SCH ×2 (00:39→08:37)
[2019-01-15 07:09] LABS: INR 2.8 (0.9-1.1); Prothrombin Time 26.5 Seconds (9.0-12.0)
[2019-01-15 07:35] VITALS: TEMP 97.3; O2SAT 95
[2019-01-15] MEDS: CARVEDILOL 6.25 MG TAB PO SCH (08:37)
[2019-01-15] MEDS: PYRIDOXINE HCL 50 MG TAB PO SCH (08:38)
[2019-01-15] MEDS: CHOLECALCIFEROL 1,000 UNITS TAB PO SCH (08:38)
[2019-01-15] MEDS: ASPIRIN 81 MG ECTAB PO SCH (08:38)
[2019-01-15] MEDS: REPAGLINIDE 1 MG TAB PO SCH ×2 (08:39→13:40)
[2019-01-15] MEDS: AMIODARONE 200 MG TAB PO SCH (08:39)
[2019-01-15] MEDS: FERROUS SULFATE 325 MG TAB PO SCH (08:39)
[2019-01-15] MEDS: CALCIUM 600MG + VIT D 400 IU TAB PO SCH (08:39)
[2019-01-15] MEDS: LORazepam 1 MG TAB PO SCH ×2 (08:40→13:40)
[2019-01-15] MEDS: INSULIN ASPART 100 UNITS/ML 3 ML PEN SC SCH ×2 (08:40→12:21)
--- NOTE | 2019-01-15 11:28 | Infectious Disease Progress Nt ---
Date of Service January 15, 2019 Assessment & Plan (1) Cellulitis of fourth toe, right: discussed treatment options with patient. did check with insurance benefits, spoke with nursing, case operator, primary service. He would like to continue on Dapto, option for this would be picc line, daily infusions of Dapto at infusion center in [place] as this is closer to home, only [place], would need to come to [facility] here for weekend doses, at 8am. Explained to patient. Alternative would be Dalvance dosing as outpatient, he feels he had clinical worsening on this and does not want additional Dalvance at this time. 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 no GNR identified. he is going to check to see if he can arrange transportation to come to [facility] on , if so he can be d/c on IV Dapto, daily at current dose x 6 weeks. will need weekly cmp,cbc,esr,cpk while on abx. Podiatry eval now scheduled by patient as oupatient for .may ultimately benefit from amp but surgery eval pending. blood cultures negative, ok for picc from ID standpoint. Discussed with primary service. can follow with Dr. Oly humphries d/c from hospital. No contraindication to d/c home from ID standpoint when outpatient abx arrangements in place. Subjective remains on dapto, tolerating well ertapenem stopped, culture again with boot turner. awaiting outpt poditary eval. afebirle overnight. blood cultures negative. awaiting arrangements for outpt abx. Results & Data Vital Signs (Past 12 Hours) Vital Signs Temp Pulse Resp BP Pulse Ox 01/15/19 07:34 36.3 C L 55 L 16 125/70 95 Laboratory Results Microbiology 01/11/19 19:45 Foot,Right Gram Stain - Final 01/11/19 19:45 Foot,Right Aerobic and Anaerobic Culture - Preliminary Coag negative Staphylococcus 01/11/19 20:30 Blood Blood Culture - Preliminary No growth to date. 01/11/19 20:04 Blood Blood Culture - Preliminary No growth to date.
--- NOTE | 2019-01-15 11:47 | XRay Report ---
XR chest 1V portable CLINICAL HISTORY: 63 years-old Male presenting with PICC line placement to right arm. TECHNIQUE: Portable upright AP view of the chest was obtained. COMPARISON: 01/11/2019. FINDINGS: Left subclavian implanted cardiac defibrillator with leads to the right atrium and right ventricular apex. Right upper extremity PICC terminates in the mid SVC, new from prior. Median sternotomy wires a nd mediastinal surgical clips again noted. Atherosclerosis of the aortic arch. Cardiac silhouette mod erately enlarged. Elevation of the left hemidiaphragm. Pulmonary vasculature appears slightly less pr ominent than on the prior exam. Persistent left basilar opacity likely related to the presence of franci vated left hemidiaphragm. No new focal opacity. No large effusion or pneumothorax. Degenerative allison es of the thoracic spine. IMPRESSION: 1. Cardiomegaly with decreasing volume overload. No pulmonary edema. 2. Appropriately positioned right upper extremity PICC new from prior. Electronically signed by: Azam Parks M.D. 01/15/2019 11:45 AM
[2019-01-15 12:53] VITALS: BP 162/74
[2019-01-15] MEDS ORDERED: DAPTOmycin 450 MG in SYRINGE 0 ML IV SCH ×2 (15:30→22:00)
--- NOTE | 2019-01-15 15:43 | Discharge Summary ---
Date of Service January 15, 2019 Admission HPI Per Admitting Provider Mr. Gaytan is a 63yo C male with multiple medical comorbidities to include DM with diabetic nephropathy, foot ulcer and chronic osteomyelitis of his right 4th toe, HTN, HLP, CAD, CHF secondary to ischemic cardiomyopathy with AICD in place. Patient follows with Dr. Aldridge from [place] and was recently started on Doxycycline 100mg PO BID for cellulitis. Patient reports that his right 4th toe has been slightly red in color x 1 month. This AM his toe was more red and painful. He was having difficulty walking which prompted him to come to the ER. He denies drainage/fevers/chills/rigors/vomiting/diarrhea/constipation. He had some nausea today as well. He reports receiving Dalvance [address] Aldridge with no improvement. ER Course: Daptomycin 300mg at 23:55, Zofran Principal Diagnosis Osteomyelitis of the right 4th toe Discharge Exam Constitutional WD/WN, vitals as above Eyes EOM intact bilaterally; no conjunctival abnormality ENMT external ear and nose normal, oropharynx normal Neck trachea midline, no thyromegaly normal visual inspection Respiratory normal respiratory effort, lungs clear to auscultation no respiratory distress Cardiovascular RRR, no murmur, no edema Gastrointestinal (Abdomen) Inspection/Auscultation: abdomen normal to inspection; abdomen not distended Musculoskeletal no cyanosis or clubbing, extremities motor strength 5/5 Skin no rashes, warm and dry Neurologic moves all extremities and awake Psychiatric Orientation: alert, oriented to person and cooperative Discharge Data Allergies Allergy/AdvReac Type Severity Reaction Status Date / Time Penicillins Allergy Intermediate RASH Verified 01/11/19 21:31 pregabalin Allergy Unknown facial Verified 01/11/19 21:31 swelling sitagliptin Allergy Unknown . Verified 01/11/19 21:31 spironolactone Allergy Unknown UNKNOWN Verified 01/11/19 21:31 citalopram AdvReac Unknown dizziness Verified 01/11/19 21:31 gabapentin AdvReac Unknown dizziness Verified 01/11/19 21:31 sertraline AdvReac Unknown dizziness Verified 01/11/19 21:31 Consultations 01/11/19 23:28 ED Decision to Admit Stat 01/12/19 01:58 Consult Infectious Diseases Routine 01/12/19 03:53 Consult Case Management - Discharge Planning Routine 01/12/19 15:06 Consult Podiatry Routine 01/14/19 11:15 Burn CD for patient Stat Ordered Studies 01/13/19 05:33 MR foot RT wo/w con Urgent Hospital Course (1) Toe infection: MRI on 01/13 showed osteomyelitis of the distal phalanx of the 4th toe. - Was on dapto & ertapenem per ID - Superficial wound culture done in the ED shows coag-negative Staph. - ID recommends daptomycin IV x 6 weeks for his osteomyelitis. -> Arranged for 6 mg/kg dosing for bone infection. Will go to [facility] for daily i nfusion. PICC placed on 01/15. (2) CAD (coronary artery disease): Patient with CAD s/p BMS to RCA on 11/01/12 with subsequent 1V CABG (MEJIA to LAD on 11/04/12), ischemic cardiomyopathy with EF of 30-35% per echo 04/2018, history of VT s/p Medtronic AICD placement in January 2013. Patient has not had any AICD discharges since 2012. No chest pain and no evidence of ischemia on EKG. He is in NSR with some ectopy. - Continued Carvedilol 6.25mg po qAM and 12.5mg po qPM - Continued ASA 81 - Continue Entresto - Hold statin while on daptomycin (3) Cardiomyopathy: Chronic systolic CHF. Patient with ICM, EF of 30-35%, history of VT with AICD in place. Appears euvolemic, no evidence of volume overload. - Continue home Lasix daily, eplerenone and Entresto, and amiodarone (4) Paroxysmal atrial fibrillation: Per an outpatient cardiology note from 08/2018, he has a "questionable" history of atrial fibrillation and is on chronic anticoagulation for this. - Continue home warfarin - Monitor INR while inpatient, on 01/15, INR was 2.8. (5) Type 2 diabetes mellitus: Well controlled, HgA1C was 6.3% on 11/19. - Held metformin while inpatient - Continued Prandin - Blood sugar checks (6) Anemia: H/H 11.1 and 32.8, no active bleeding. - Continue Fe supplementation - Continue to monitor (7) Hyperlipidemia: Chronic. Stable. - Holding statin while on dapto (8) Hypertension: Blood pressure well-controlled at present. - Continue cardiac medications as above (9) CKD (chronic kidney disease): Baseline Cr is ~1.3. - As of 01/14, Cr was at baseline. - Monitor Cr (10) DVT prophylaxis: On anticoagulation Total Time Total Time Spent Total Time Spent (In Minutes): 35 Total Time Includes: Examination of the Patient and Communication With Other Providers Discharge Plan Discharge Items Patient Disposition: Home - Self-Care Reason For Visit: TOE INFECTION Discharge Diagnosis: Right 4th toe osteomyelitis Discharge Goals: Diagnostic testing and Improve disease control Activity: Resume your previous activity Non-emergency contact: Primary Care Provider and Specialist Call non-emergency contact if: your symptoms worsen, your pain is not controlled and your temperature is above 100.5 Follow-up/Referrals: Sajan Aldridge MD [Physician] - 01/28/19 2:00 pm (Please, follow up with Dr. Aldridge (infectious disease specialist) on SundayJanuary 28 at 2:00 pm. *The office is located in [address] of [facility]. This is the big building next to this [facility]. If you need to change this appointment, call the office at [phone].) Dixon Junior MD [Primary Care Provider] - 01/20/19 3:00 pm (Please, follow up with Dr. Junior on SundayJanuary 20 at 3:00 pm. *If you need to change this appointment, call the office at [phone].) Diet: Carb Consistent or DM2 Addtl Provider Instructions: You will need 6 weeks of IV antibiotics (daptomycin) after you are discharged from the hospital. Please stop your Lipitor (atorvastatin) while you are on the daptomycin as it can cause liver problems. [facility] is able to administer the medications daily. You will need to arrive for your first dose on January 16 at 3:30pm. When you arrive, they will assist with scheduling the rest of your appointments. [facility] phone # [phone]. Prescriptions: New daptomycin 500 mg recon soln 400 mg IV DAILY Qty: 1 RF: 0 Continued ondansetron HCl [Zofran] 4 mg tablet 4 mg PO Q8 PRN (Reason: Nausea) RF: 0 calcium carb and citrate-vitD3 [Citracal + D Slow Release] 600 mg calcium- 500 unit tablet extended release 1 tab PO DAILY RF: 0 ferrous sulfate 325 mg (65 mg iron) tablet 325 mg PO DAILY RF: 0 tramadol 50 mg tablet 50 mg PO Q8H PRN (Reason: Pain) RF: 0 nitroglycerin 0.4 mg Tablet, Sublingual 1 tab sublingual USEASDIRECTD PRN (Reason: Chest Pain) Qty: 0 RF: 0 repaglinide [Prandin] 2 mg Tablet 2 mg PO TID Qty: 0 RF: 0 amiodarone 200 mg Tablet 200 mg PO DAILY Qty: 0 RF: 0 lorazepam [Ativan] 1 mg Tablet 1 mg PO TID Qty: 0 RF: 0 coenzyme Q10 100 mg Tablet 100 mg PO BID Qty: 0 RF: 0 cholecalciferol (vitamin D3) 2,000 unit Tablet 2,000 unit PO DAILY Qty: 0 RF: 3 carvedilol [Coreg] 6.25 mg Tablet 6.25 mg PO QAM Qty: 0 RF: 1 pyridoxine (vitamin B6) 100 mg Tablet 100 mg PO QAM Qty: 0 RF: 0 Entresto 24-26 mg Tablet 1 tab PO QPM Qty: 0 RF: 0 aspirin 81 mg Tablet,Delayed Release (Dr/Ec) 81 mg PO DAILY Qty: 0 RF: 0 acetaminophen 500 mg Tablet 1,000 mg PO Q6H PRN (Reason: Pain) Qty: 0 RF: 0 carvedilol [Coreg] 12.5 mg Tablet 12.5 mg PO QPM Qty: 0 RF: 0 furosemide [Lasix] 20 mg Tablet 20 mg PO QPM Qty: 0 RF: 0 metformin 500 mg Tablet 500 mg PO DAILY Qty: 60 RF: 0 warfarin 2.5 mg Tablet 3.75 mg PO DAILY Qty: 0 RF: 0 eplerenone 25 mg Tablet 25 mg PO QPM RF: 0 Discontinued doxycycline hyclate 100 mg capsule 100 mg PO BID RF: 0 atorvastatin 40 mg Tablet 40 mg PO HS Qty: 0 RF: 5 Dalvance 500 mg Solution IV UD RF: 0 Stand-Alone Forms: [facility] Discharge Orders: Discharge Order (Routine); Ordered 01/15/19 Ordered By: Imtiaz Casanova Admission Data Admit Date/Time: 01/13/19 09:10 Attending Provider: Imtiaz Casanova Admit Provider: Cee Arellano Primary Care Provider: Dixon Junior Other Providers: Sarai Villalobos ; Imtiaz Casanova ; Evita Ceballos Service: Medical Other Interventions: Discharge Summary Assessment (RN) Last Done: 01/15/19 12:50
== END 2019-01-15 16:20 | disposition home or self-care (01) | DRG 638 ==
LOC: 2N 19:21 → ED 19:21 → SUATTDRO 01-12 01:05 → 2N 01-12 01:36 → 4E 01-12 17:59